=== PATIENT | male | born 1940 | race Caucasian/White ===

== ENCOUNTER → 2017-04-26 | Outpatient (CLI) | payer OTHER, BC ==
[~2017-04-26] MED LIST: ALPH300T PO; ARC10 PO; ASPI325T45 PO; CALC600T; COEN400C5; CRS/10 PO; FLUT50SP14 NAE; MULT-513 PO; POLY335025; PRED10TA PO; PRLSR20 PO
--- NOTE | 2017-04-26 16:54 | DIAGNOSTIC IMAGING REPORT ---
ULTRASOUND VENOUS DOPP LOWER EXT UNILAT CLINICAL HISTORY: Left leg pain and swelling. Left leg contusion. COMPARISON STUDY: 03/03/2016 FINDINGS: Real-time and color flow Doppler imaging were performed. Flow was seen within the femoral, popliteal and calf veins with no intraluminal thrombus demonstrated. The saphenous vein is patent. IMPRESSION: No evidence of left lower extremity DVT. Electronically signed by: Gareth Mcnamara M.D. 04/26/2017 4:53 PM Dictated Date/Time: 04/26/2017 4:52 PM
== END | disposition home or self-care (01) ==
LOC: C.ULTR 16:27
PROVIDERS: ATTEND Nurse Practitioner Family
DX: S80.12XA Contusion of left lower leg, initial encounter (principal); M79.605 Pain in left leg; W03.XXXA Other fall on same level due to collision with another person, initial encounter

== ENCOUNTER → 2017-05-06 | Outpatient (CLI) | payer OTHER, BC ==
--- NOTE | 2017-05-06 10:14 | DIAGNOSTIC IMAGING REPORT ---
CHEST 2 VIEWS ROUTINE CLINICAL HISTORY: J84.10 40 FIBROSIS COMPARISON STUDY: 07/22/2016 FINDINGS: The cardiac and mediastinal contours remain stable. Interstitial pulmonary fibrotic changes remain similar to the prior study. These have a lower lung zone predominance. There are no pleural effusions. There is no overt failure.[ IMPRESSION: Interstitial pulmonary fibrotic changes with a lower lung zone predominance, similar to the preceding study. Electronically signed by: Gareth Mcnamara M.D. 05/06/2017 10:13 AM Dictated Date/Time: 05/06/2017 10:12 AM
[2017-05-06 12:13] LABS: BASO % 0.4 %; BASO ABS # 0.03 K/uL (0-0.2); COMPLETE YES; EOS % 2.1 %; HEMATOCRIT 39.2 % (42-52); IG% 0.1 %; LYMPH % 24.6 %; LYMPH ABS # 1.64 K/uL (1.2-3.4); MEAN CELL VOLUME 95.8 fL (80-100); MEAN CORPUSCULAR HGB CONC 33.4 g/dl (32-36); MEAN PLATELET VOLUME 10.8 fL (7.4-10.4); MONO % 10.3 %; NEUT % 62.5 %; PLATELET COUNT 209 K/uL (130-400); RED BLOOD COUNT 4.09 M/uL (4.7-6.1); WHITE BLOOD COUNT 6.68 K/uL (4.8-10.8)
== END | disposition home or self-care (01) ==
LOC: C.RAD1850 10:00
PROVIDERS: ATTEND Internal Medicine Pulmonary Disease
DX: J84.10 Pulmonary fibrosis, unspecified (principal); R06.02 Shortness of breath

== ENCOUNTER → 2017-05-06 | Outpatient (CLI) | payer OTHER, BC ==
--- NOTE | 2017-05-06 08:25 | DIAGNOSTIC IMAGING REPORT ---
MRI OF THE BRAIN WITHOUT CONTRAST CLINICAL HISTORY: ALTERED MENTAL STATUS SPEECH DIFFICULTY. DIMINISHED MEMORY. COMPARISON STUDY: 03/30/2016 FINDINGS: Sagittal T1, axial diffusion, proton density and T2 weighted axial, coronal FLAIR, and axial T1-weighted images were acquired. No intra or extra-axial mass lesions are visualized Axial diffusion-weighted images reveal no evidence of acute or subacute infarction. There is no hydrocephalus. There is a cavum septa pellucida and cavum vergae. Proton density T2-weighted and FLAIR images reveal scattered foci of increased T2 signal within the white matter, likely on a small vessel basis. These remain unchanged the prior study. There are no abnormal flow voids. IMPRESSION: No acute intracranial findings. No change from the prior March 2016 study. Electronically signed by: Gareth Mcnamara M.D. 05/06/2017 8:24 AM Dictated Date/Time: 05/06/2017 8:22 AM
== END | disposition home or self-care (01) ==
LOC: C.MRI 07:25
PROVIDERS: ATTEND Nurse Practitioner Family
DX: R41.82 Altered mental status, unspecified (principal); J84.10 Pulmonary fibrosis, unspecified; R06.02 Shortness of breath

== ENCOUNTER 2017-10-31 21:38 | Inpatient (IN) | payer OTHER, BC ==
[~2017-10-31] VITALS: Ht 195.6 cm; Wt 91.4 kg
[2017-10-31] MEDS ORDERED: ONDANSETRON INJ 2 MG/ML 2 ML VIAL IV STA (21:52)
[2017-10-31] MEDS ORDERED: LORAZEPAM 2 MG/ML 1 ML VIAL IV STA (21:52)
--- NOTE | 2017-10-31 21:58 | EMERGENCY ROOM VISIT NOTE ---
History Report prepared by Chiquis: Gurpreet Mckeon Under the Supervision of: Dr. Andre Graham M.D. First contact with patient: 21:46 Chief Complaint: ABDOMINAL PAIN Stated Complaint: UPPER ABD. PAIN, BREATHING PROBLEMS History of Present Illness The patient is a 77 year old male who presents to the Emergency Room with complaints of constant abdominal pain beginning 20 minutes ago. The patient states that he had no indications of pain earlier in the day. He notes that this pain did not start after he ate something. He also complains of SOB. He denies any vomiting. Per , the patient has a history of pulmonary fibrosis. She reports that the patient has experienced similar symptoms that have occurred in the same area. She states that the patient does not wear oxygen at home. She notes that the patient had a typically normal day today but seems to be appearing more yellow/pale than usual. She reports that the patient has dementia but does not have any history of anxiety. She states that the patient had a few hernia surgeries a long time ago. HPI limited secondary to dementia. Source of History: patient, spouse/significant other History Limited By: dementia Onset: 20 minutes ago Position: abdomen Timing: constant Associated Symptoms: + SOB, No vomiting Note: Per , the patient is appearing more yellow/pale than usual. Review of Systems ROS limited secondary to dementia. Past Medical & Surgical Medical Problems: (1) Dementia (2) GERD (gastroesophageal reflux disease) (3) Hyperlipidemia Nec/Nos (4) Memory Loss (5) Pulmonary Fibrosis, Unspecified Surgical Problems: (1) History of hernia surgery (2) Knee Joint Replacement Status Family History No pertinent family history stated. Social History Smoking Status: Former Smoker Marital Status: Housing Status: lives with family Occupation Status: retired Current/Historical Medications Scheduled Alpha-Lipoic Acid (Thioctic Ac (Alpha Lipoic Acid), 300 MG PO DAILY Aspirin (Aspirin 81), 81 MG PO QAM Calcium Carbonate-Vitamin D (Calcium + D3 600-200 mg-Unit), 1 TAB PO DAILY Cholecalciferol (Vitamin D), 1,000 UNITS PO DAILY Coenzyme Q10 (Ubidecarenone) (Co Q 10), 100 MG PO QAM Cyanocobalamin (Vitamin B12 500MCG), 500 MCG PO DAILY Donepezil HCl (Donepezil HCl), 10 MG PO HS Memantine (Namenda), 5 MG PO BID Multivitamins/Minerals (Mvi With Minerals), 1 TAB PO DAILY Probiotic Product (Probiotic), 1 CAP PO DAILY Ranitidine (Zantac), Unknown Dose PO DAILY Thiamine Hcl (Vitamin B1), 250 MG PO QAM Scheduled PRN Betamethasone Dip (Betamethasone Dipropionat), 1 APPLN TOP BID PRN for Carboxymethylcellulose-Glyceri (Refresh Optive 1-0.9 %), 1 APPLN OPB DAILY PRN for Ipratropium [place] (Nasal) (Ipratropium [place]), 2 SPRAYS HEIDI TID PRN for Polyethylene (Miralax), 17 GM PO DAILY PRN for Constipation Allergies Coded Allergies: Horse Serum Proteins (Verified Allergy, Unknown, "CAN'T REMEMBER", ) Physical Exam Vital Signs Date Time Temp Pulse Resp B/P (MAP) Pulse Ox O2 Delivery O2 Flow Rate FiO2 10/31/17 22:32 61 22 114/56 96 Nasal Cannula 3.0 10/31/17 22:15 96 Nasal Cannula 3.0 10/31/17 22:07 62 10/31/17 21:41 59 18 145/81 98 Room Air Physical Exam GENERAL: Somewhat anxious appearing and hyperventilating. HEENT: No acute trauma, normocephalic atraumatic, mucous membranes moist, no nasal congestion, no scleral icterus. NECK: No stridor, no adenopathy, no meningismus, trachea is midline. LUNGS: Clear to auscultation bilaterally, no wheeze, no rhonchi, breath sounds equal. Increased respiratory rate. HEART: Unable to hear cardiac tones because of the increased respiratory rate. ABDOMEN: Soft, bowel sounds positive, no hernias, no peritonitis. Tender in epigastrium. EXTREMITIES: No cyanosis or edema, full range of motion of all the joints without pain or difficulty, no signs for acute trauma. NEUROLOGIC: Oriented x 3, no acute motor or sensory deficits, no focal weakness. SKIN: No rash, no jaundice, no diaphoresis. Pale. Medical Decision & Procedures ER Provider Diagnostic Interpretation: Radiology results as stated below per my review and radiologist interpretation: CHEST ONE VIEW PORTABLE FINDINGS: There is no pneumothorax or pleural effusion. Borderline cardiomegaly is noted. Lower lobe predominant reticulonodular interstitial thickening is noted. This has slightly progressed. No superimposed consolidation is evident. IMPRESSION: Increase in interstitial thickening since prior exam. This could reflect progression of pulmonary fibrosis or mild pulmonary edema or an infectious process superimposed upon pulmonary fibrosis. Electronically signed by: Shashank Phelps M.D. 10/31/2017 10:[address] ABDOMEN & PELVIS With Contrast: Distended gallbladder with possible cholelithiasis. Ultrasound could confirm. Fecal retention. No SBO. Appendix is not clearly identified. Fat-containing left inguinal hernia. Pulmonary fibrosis. Radiologist: Tian Perez M.D. Laboratory Results 10/31/17 22:01 Red Blood Count 4.01, Mean Corpuscular Volume 96.0, Mean Corpuscular Hemoglobin 33.2, Mean Corpuscular Hemoglobin Concent 34.5, Mean Platelet Volume 10.6, Neutrophils (%) (Auto) 42.3, Lymphocytes (%) (Auto) 47.5, Monocytes (%) (Auto) 7.3, Eosinophils (%) (Auto) 2.3, Basophils (%) (Auto) 0.5, Neutrophils # (Auto) 3.95, Lymphocytes # (Auto) 4.43, Monocytes # (Auto) 0.68, Eosinophils # (Auto) 0.21, Basophils # (Auto) 0.05 10/31/17 22:01 Test 10/31/17 22:01 White Blood Count 9.33 K/uL (4.8-10.8) Red Blood Count 4.01 M/uL (4.7-6.1) Hemoglobin 13.3 g/dL (14.0-18.0) Hematocrit 38.5 % (42-52) Mean Corpuscular Volume 96.0 fL (80-100) Mean Corpuscular Hemoglobin 33.2 pg (25-34) Mean Corpuscular Hemoglobin Concent 34.5 g/dl (32-36) Platelet Count 160 K/uL (130-400) Mean Platelet Volume 10.6 fL (7.4-10.4) Neutrophils (%) (Auto) 42.3 % Lymphocytes (%) (Auto) 47.5 % Monocytes (%) (Auto) 7.3 % Eosinophils (%) (Auto) 2.3 % Basophils (%) (Auto) 0.5 % Neutrophils # (Auto) 3.95 K/uL (1.4-6.5) Lymphocytes # (Auto) 4.43 K/uL (1.2-3.4) Monocytes # (Auto) 0.68 K/uL (0.11-0.59) Eosinophils # (Auto) 0.21 K/uL (0-0.5) Basophils # (Auto) 0.05 K/uL (0-0.2) RDW Standard Deviation 48.5 fL (36.4-46.3) RDW Coefficient of Variation 13.8 % (11.5-14.5) Immature Granulocyte % (Auto) 0.1 % Immature Granulocyte # (Auto) 0.01 K/uL (0.00-0.02) Prothrombin Time 10.5 SECONDS (9.0-12.0) Prothromb Time International Ratio 1.0 (0.9-1.1) Activated Partial Thromboplast Time 26.1 SECONDS (21.0-31.0) Partial Thromboplastin Ratio 1.0 Anion Gap 9.0 mmol/L (3-11) Est Creatinine Clear Calc Drug Dose 60.0 ml/min Estimated GFR () 60.3 Estimated GFR (Non- 52.0 BUN/Creatinine Ratio 12.9 (10-20) Lactic Acid Level 2.4 mmol/L (0.4-2.0) Calcium Level 9.4 mg/dl (8.5-10.1) Total Bilirubin 0.7 mg/dl (0.2-1) Aspartate Amino Transf (AST/SGOT) 38 U/L (15-37) Alanine Aminotransferase (ALT/SGPT) 27 U/L (12-78) Alkaline Phosphatase 53 U/L (45-117) Troponin I < 0.015 ng/ml (0-0.045) Pro-B-Type Natriuretic Peptide 2479 pg/ml (0-1800) Total Protein 7.2 gm/dl (6.4-8.2) Albumin 4.0 gm/dl (3.4-5.0) Globulin 3.2 gm/dl (2.5-4.0) Albumin/Globulin Ratio 1.3 (0.9-2) Lipase 9865 U/L (73-393) Laboratory results reviewed by me. Medications Administered Medications (Trade) Dose Ordered Sig/Byron Route Start Time Stop Time Status Last Admin Dose Admin Ondansetron HCl (Zofran Inj) 4 mg NOW STAT IV 10/31/17 21:52 10/31/17 21:54 DC 10/31/17 22:20 4 MG Morphine Sulfate (MoRPHine SULFATE INJ) 2 mg Q30M PRN IV 10/31/17 22:00 11/14/17 21:59 10/31/17 22:20 4 MG Lorazepam (Ativan Inj) 0.5 mg NOW STAT IV 10/31/17 21:52 10/31/17 21:54 DC 10/31/17 22:20 0.5 MG Sodium Chloride 500 ml @ 999 mls/hr Q31M STAT IV 10/31/17 22:46 10/31/17 23:16 DC 10/31/17 23:11 999 MLS/HR ECG Indication: abdominal pain Rate (beats per minute): 60 Rhythm: normal sinus Findings: PVC, no acute ischemic change, other (LVH present, potential old inferior infarct) ED Course 2146: The patient was evaluated in room B3. A complete history and physical exam was performed. 2152: Lorazepam 0.5mg IV, Zofran Inj 4mg IV, IV Morphine. 2222: I reevaluated and updated the patient. He just vomited and feels better. 2246: Sodium Chloride 500 ml @ 999 mls/hr IV 2309: Cefepime HCl 2000mg/Dextrose 112.5 ml@ 200mls/hr IV 2313: I reevaluated the patient. He was sleeping so I spoke to the family. 2341: The patient's gallbladder US is pending. Dr. Sutton - [place], [facility] [place] made aware of the patient. Medical Decision Differential diagnoses include: anxiety, pneumonia, cardiac ischemia, dysrhythmia, biliary colic, pancreatitis, AAA, liver failure, infection, UTI, and bowel obstruction. There is no leukocytosis or concerning anemia. No significant electrolyte abnormality, kidney failure or hepatitis. The patient does have a high lipase consistent with pancreatitis. Chest film shows pulmonary congestion/pulmonary fibrosis-the patient has a history of pulmonary fibrosis. There was no pneumonia or free air. EKG shows a sinus rhythm with PVC's and chronic findings , there is no acute ischemia. Cardiac enzyme testing times one is not consistent with acute cardiac injury. Lactic acid level is slightly elevated, likely consistent with dehydration, possibly infection. There was no coagulopathy. Abdominal and pelvis CT shows a dilated gallbladder with possible gallstones, no bowel obstruction, no free air. Gallbladder ultrasound is pending. The patient presents hyperventilating complaining of epigastric abdominal pain. He was a difficult historian with his history of dementia. Most of the history was obtained from his . He did seem tender in the epigastrium. He appeared slightly pale on exam. The patient received IV morphine, IV Zofran and IV Ativan. He received IV saline for hydration, he was given IV cefepime as antibiotic coverage. He is resting comfortably. The patient appears to have pancreatitis, this of course explains his discomfort and pain. He will require a hospital stay. I spoke to the patient, his and the case aide. The on-call hospitalist was consulted. Medication Reconcilliation Current Medication List: was personally reviewed by me Blood Pressure Screening Patient's blood pressure: Elevated blood pressure Blood pressure disposition: Elevated BP felt to be situational Impression Primary Impression: Pancreatitis Additional Impressions: Epigastric abdominal pain Vomiting Scribe Attestation The scribe's documentation has been prepared under my direction and personally reviewed by me in its entirety. I confirm that the note above accurately reflects all work, treatment, procedures, and medical decision making performed by me. Departure Information Dispostion Being Evaluated By Hospitalist Referrals Jh Casey M.D. (PCP) Patient Instructions My [facility] Problem Qualifiers
[2017-10-31] MEDS ORDERED: MoRPHine SULFATE 4 MG/ML 1 ML CARP\\VIAL IV PRN (22:00)
[2017-10-31] MEDS ORDERED: OPTIRAY 320 IV PRN (22:15)
[2017-10-31 22:18] LABS: BASO % 0.5 %; BASO ABS # 0.05 K/uL (0-0.2); EOS % 2.3 %; EOS ABS # 0.21 K/uL (0-0.5); HEMATOCRIT 38.5 % (42-52); HEMOGLOBIN 13.3 g/dL (14.0-18.0); IG# 0.01 K/uL (0.00-0.02); LYMPH % 47.5 %; LYMPH ABS # 4.43 K/uL (1.2-3.4); MEAN CORPUSCULAR HEMOGLOBIN 33.2 pg (25-34); MEAN CORPUSCULAR HGB CONC 34.5 g/dl (32-36); MEAN PLATELET VOLUME 10.6 fL (7.4-10.4); MONO % 7.3 %; MONO ABS # 0.68 K/uL (0.11-0.59); NEUT % 42.3 %; NEUT ABS # 3.95 K/uL (1.4-6.5); PLATELET COUNT 160 K/uL (130-400); RED CELL DISTRIBUTION WIDTH CV 13.8 % (11.5-14.5); RED CELL DISTRIBUTION WIDTH SD 48.5 fL (36.4-46.3); WHITE BLOOD COUNT 9.33 K/uL (4.8-10.8)
[2017-10-31 22:26] LABS: PTT PATIENT 26.1 SECONDS (21.0-31.0)
--- NOTE | 2017-10-31 22:32 | DIAGNOSTIC IMAGING REPORT ---
CHEST ONE VIEW PORTABLE CLINICAL HISTORY: Abdominal pain. COMPARISON STUDY: Chest radiograph May 06, 2017. FINDINGS: There is no pneumothorax or pleural effusion. Borderline cardiomegaly is noted. Lower lobe predominant reticulonodular interstitial thickening is noted. This has slightly progressed. No superimposed consolidation is evident. IMPRESSION: Increase in interstitial thickening since prior exam. This could reflect progression of pulmonary fibrosis or mild pulmonary edema or an infectious process superimposed upon pulmonary fibrosis. Electronically signed by: Shashank Phelps M.D. 10/31/2017 10:31 PM Dictated Date/Time: 10/31/2017 10:27 PM
[2017-10-31 22:42] LABS: ALT/SGPT 27 U/L (12-78); AST/SGOT 38 U/L (15-37); BLOOD UREA NITROGEN 17 mg/dl (7-18); CALCIUM 9.4 mg/dl (8.5-10.1); CARBON DIOXIDE 27 mmol/L (21-32); CREATININE 1.32 mg/dl (0.60-1.40); GLUCOSE 127 mg/dl (70-99); POTASSIUM 3.6 mmol/L (3.5-5.1); SODIUM 139 mmol/L (136-145)
[2017-10-31] MEDS ORDERED: SODIUM CHLORIDE 0.9% 500ML 500 ML IV STA (22:46)
[2017-10-31 22:47] LABS: ALKALINE PHOSPHATASE 53 U/L (45-117); LIPASE 9865 U/L (73-393); TOTAL PROTEIN 7.2 gm/dl (6.4-8.2)
[2017-10-31] MEDS ORDERED: CARB1GEL14 OPB (22:49)
[2017-10-31] MEDS ORDERED: CALC-388 PO (22:49)
[2017-10-31] MEDS ORDERED: MRLP17X PO (22:49)
[2017-10-31] MEDS ORDERED: CHOL100010 PO (22:49)
[2017-10-31] MEDS ORDERED: DONE10TA12 PO (22:49)
[2017-10-31] MEDS ORDERED: THIA250T7 PO (22:49)
[2017-10-31] MEDS ORDERED: MISCCAP80 PO (22:49)
[2017-10-31] MEDS ORDERED: ASPI-435 PO (22:49)
[2017-10-31] MEDS ORDERED: CYAN500T13 PO (22:49)
[2017-10-31] MEDS ORDERED: IPRA0.03 NAE (22:49)
[2017-10-31] MEDS ORDERED: COEN1CAP17 PO (22:49)
[2017-10-31] MEDS ORDERED: NMN5 PO (22:49)
[2017-10-31] MEDS ORDERED: ZNTT/150 PO (22:49)
[2017-10-31] MEDS ORDERED: DPRSCR15 TOP (22:49)
[2017-10-31] MEDS ORDERED: CEFEPIME IV 2,000 MG in DEXTROSE 5% 100ML 100 ML IV STA (23:09)
[2017-11-01] MEDS ORDERED: BETAMETHASONE DIP AUG (DIPROLENE) 0.05% CR 15 GM TUBE EXT PRN (01:15)
[2017-11-01] MEDS ORDERED: ACETAMINOPHEN 325 MG TAB PO PRN (01:15)
[2017-11-01] MEDS ORDERED: ALUMINUM/MAGNESIUM/SIMETH (MAALOX MAX) 30 ML UDC PO PRN (01:15)
[2017-11-01] MEDS ORDERED: MAGNESIUM HYDROXIDE SUSP 30 ML UDC PO PRN (01:15)
[2017-11-01] MEDS ORDERED: ONDANSETRON INJ 2 MG/ML 2 ML VIAL IV PRN ×2 (01:15→01:30)
--- NOTE | 2017-11-01 01:42 | History and Physical ---
History & Physical Date & Time of Service: Nov 01, 2017 at 01:18 Chief Complaint: Upper Abd. Pain, Breathing Problems Primary Care Physician: Jh Casey M.D. History of Present Illness Source: spouse The patient is a 77 year old male who presented to the ED with persistent abdominal pain. The patient was asleep during my encounter and His provided much of the history. She states that he has had epigastric abdominal pain for several weeks intermittently. However today, the pain was constant. She notes that he does have a history of dementia but has never complained of pain as severe. There was no relationship to food. He was also complaining of shortness of breath. He does have a history of pulmonary fibrosis but does not use any oxygen or inhalers at home. She also reports that he had an episode of emesis in the ER. Denies diarrhea. No history of smoking or alcohol No history of pancreatitis. Past Medical/Surgical History Medical Problems: (1) GERD (gastroesophageal reflux disease) Status: Chronic (2) Hyperlipidemia Nec/Nos Status: Chronic (3) Memory Loss Status: Chronic (4) Pulmonary Fibrosis, Unspecified Status: Chronic Surgical Problems: (1) Knee Joint Replacement Status Status: Resolved Social History Smoking Status: Former Smoker Marital Status: Occupational Status: retired Immunizations History of Influenza Vaccine: No History of Tetanus Vaccine?: No History of Pneumococcal: Yes Pneumococcal Date: Nov 15, 2008 History of Hepatitis B Vaccine: No Multi-Drug Resistant Organisms History of MDRO: No Allergies Coded Allergies: Horse Serum Proteins (Verified Allergy, Unknown, "CAN'T REMEMBER", ) Home Medications Scheduled Alpha-Lipoic Acid (Thioctic Ac (Alpha Lipoic Acid), 300 MG PO DAILY Aspirin (Aspirin 81), 81 MG PO QAM Calcium Carbonate-Vitamin D (Calcium + D3 600-200 mg-Unit), 1 TAB PO DAILY Cholecalciferol (Vitamin D), 1,000 UNITS PO DAILY Coenzyme Q10 (Ubidecarenone) (Co Q 10), 100 MG PO QAM Cyanocobalamin (Vitamin B12 500MCG), 500 MCG PO DAILY Donepezil HCl (Donepezil HCl), 10 MG PO HS Memantine (Namenda), 5 MG PO BID Multivitamins/Minerals (Mvi With Minerals), 1 TAB PO DAILY Probiotic Product (Probiotic), 1 CAP PO DAILY Ranitidine (Zantac), Unknown Dose PO DAILY Thiamine Hcl (Vitamin B1), 250 MG PO QAM Scheduled PRN Betamethasone Dip (Betamethasone Dipropionat), 1 APPLN TOP BID PRN for Carboxymethylcellulose-Glyceri (Refresh Optive 1-0.9 %), 1 APPLN OPB DAILY PRN for Ipratropium [place] (Nasal) (Ipratropium [place]), 2 SPRAYS HEIDI TID PRN for Polyethylene (Miralax), 17 GM PO DAILY PRN for Constipation Review of Systems ROS unobtainable Physical Exam Vital Signs Date Time Temp Pulse Resp B/P (MAP) Pulse Ox O2 Delivery O2 Flow Rate FiO2 11/01/17 00:41 85 18 95/44 95 Room Air 11/01/17 00:03 97/54 10/31/17 23:15 69 19 100 Nasal Cannula 3.0 10/31/17 23:10 127/68 10/31/17 22:45 67 16 100 10/31/17 22:32 61 22 114/56 96 Nasal Cannula 3.0 10/31/17 22:15 96 Nasal Cannula 3.0 10/31/17 22:07 62 10/31/17 21:41 59 18 145/81 98 Room Air General Appearance: no apparent distress, + pertinent finding (patient asleep) Respiratory/Chest: lungs clear, normal breath sounds, no respiratory distress, no accessory muscle use Cardiovascular: regular rate, rhythm, + pertinent finding (trace) Abdomen/GI: normal bowel sounds, non tender, soft Diagnostics Laboratory Results Results Past 24 Hours Test 10/31/17 22:01 Range/Units White Blood Count 9.33 4.8-10.8 K/uL Red Blood Count 4.01 4.7-6.1 M/uL Hemoglobin 13.3 14.0-18.0 g/dL Hematocrit 38.5 42-52 % Mean Corpuscular Volume 96.0 80-100 fL Mean Corpuscular Hemoglobin 33.2 25-34 pg Mean Corpuscular Hemoglobin Concent 34.5 32-36 g/dl Platelet Count 160 130-400 K/uL Mean Platelet Volume 10.6 7.4-10.4 fL Neutrophils (%) (Auto) 42.3 % Lymphocytes (%) (Auto) 47.5 % Monocytes (%) (Auto) 7.3 % Eosinophils (%) (Auto) 2.3 % Basophils (%) (Auto) 0.5 % Neutrophils # (Auto) 3.95 1.4-6.5 K/uL Lymphocytes # (Auto) 4.43 1.2-3.4 K/uL Monocytes # (Auto) 0.68 0.11-0.59 K/uL Eosinophils # (Auto) 0.21 0-0.5 K/uL Basophils # (Auto) 0.05 0-0.2 K/uL RDW Standard Deviation 48.5 36.4-46.3 fL RDW Coefficient of Variation 13.8 11.5-14.5 % Immature Granulocyte % (Auto) 0.1 % Immature Granulocyte # (Auto) 0.01 0.00-0.02 K/uL Prothrombin Time 10.5 9.0-12.0 SECONDS Prothromb Time International Ratio 1.0 0.9-1.1 Activated Partial Thromboplast Time 26.1 21.0-31.0 SECONDS Partial Thromboplastin Ratio 1.0 Sodium Level 139 136-145 mmol/L Potassium Level 3.6 3.5-5.1 mmol/L Chloride Level 103 98-107 mmol/L Carbon Dioxide Level 27 21-32 mmol/L Anion Gap 9.0 3-11 mmol/L Blood Urea Nitrogen 17 7-18 mg/dl Creatinine 1.32 0.60-1.40 mg/dl Est Creatinine Clear Calc Drug Dose 60.0 ml/min Estimated GFR () 60.3 Estimated GFR (Non- 52.0 BUN/Creatinine Ratio 12.9 10-20 Random Glucose 127 70-99 mg/dl Lactic Acid Level 2.4 0.4-2.0 mmol/L Calcium Level 9.4 8.5-10.1 mg/dl Total Bilirubin 0.7 0.2-1 mg/dl Aspartate Amino Transf (AST/SGOT) 38 15-37 U/L Alanine Aminotransferase (ALT/SGPT) 27 12-78 U/L Alkaline Phosphatase 53 45-117 U/L Troponin I < 0.015 0-0.045 ng/ml Pro-B-Type Natriuretic Peptide 2479 0-1800 pg/ml Total Protein 7.2 6.4-8.2 gm/dl Albumin 4.0 3.4-5.0 gm/dl Globulin 3.2 2.5-4.0 gm/dl Albumin/Globulin Ratio 1.3 0.9-2 Lipase 9865 73-393 U/L Impression Assessment and Plan This is a 77 y/o M who presents with persistent epigastric abdominal pain. Pancreatitis: Lipase - 9000 No evidence of necrosis on CT GB usg without evidence of cholecystitis IV nss NPO Cefepime given in the ER- hold on further Abx GI consult Zofran, Morphine Dementia Continue donepezil, memantine Dvt proph Lovenox Pulmonary fibrosis- chronic ?mild worsening on xray vs. pulm edema. Gerd Protonix Code: DNR Resident Physician Supervision Note: I was present with Dr. Masters during the history and exam. I discussed the case with the resident and agree with the findings and plan as documented in the note. Any exceptions or clarifications are listed here: 77 y/o M Hx pulmonary fibrosis, dementia - presents with N/V, abdominal pain - elevated lipase noted in ER - admitted with presumed pancreatitis OE AAO x 2 S1,2 R CTAB mild, diffuse tenderness No CCE No new deficits P: Pt placed on IVF - pain control and antiemetics provided - NPO excepting water/ meds May need treatment for fibrosis going forward if he continues to c/o SOB and should follow with pulm as outpt - no 02 demands at present - can provide inhalers if needed Documented By: Naresh Sutton Level of Care Med/Surg VTE Prophylaxis VTE Risk Assessment Done? Y/N: Yes Risk Level: Moderate
[2017-11-01 02:00] VITALS: BP 136/69; PULSE 75; TEMP 36.5; Ht 195.6 cm; Wt 91.4 kg
[2017-11-01] MEDS ORDERED: POLYETHYLENE (MIRALAX) 17 GM PACK PO PRN (02:00)
[2017-11-01] MEDS ORDERED: ARTIFICIAL TEARS OP OINT 3.5 GM TUBE OPB PRN (02:15)
[2017-11-01] MEDS: SODIUM CHLORIDE 0.9% 1000ML 1,000 ML IV SCH ×3 (02:17→20:09)
[2017-11-01] MEDS: MoRPHine SULFATE 2 MG/ML CARP IV PRN ×2 (02:41→16:09)
[2017-11-01] MEDS ORDERED: ALBUT/IPRATROP 3MG/0.5MG NEB 3 ML VIAL INH PRN (06:15)
--- NOTE | 2017-11-01 06:33 | DIAGNOSTIC IMAGING REPORT ---
CT ABD/PELVIS IV CONTRAST ONLY CLINICAL HISTORY: Generalized abdominal pain COMPARISON STUDY: None. TECHNIQUE: Following the IV administration of 115 mL of Optiray-320, CT scan of the abdomen and pelvis was performed from the lung bases to the proximal femurs. Images are reviewed in the axial, sagittal, and coronal planes. IV contrast was administered without complication. A dose lowering technique was utilized adhering to the principles of ALARA. CT DOSE: 412.43 mGy.cm FINDINGS: Lower chest: There is evidence for underlying interstitial lung disease with subpleural reticulation. The heart is enlarged. Liver: The contrast-enhanced liver is normal in size, contour, and attenuation. There is no intrahepatic biliary ductal dilatation. The hepatic veins and portal veins are patent. Gallbladder: The gallbladder is distended. There is equivocal dependent sludge. Spleen: Normal in size and attenuation. Pancreas: Unremarkable. Adrenal glands: Unremarkable. Kidneys: There is symmetric renal cortical enhancement. The kidneys are normal in size without hydronephrosis. Bowel: There is evidence for fecal retention. There are no transition zones indicate bowel obstruction. There is no evidence of acute diverticulitis. The appendix is difficult to visualize with certainty. There are no findings to indicate acute appendicitis. Peritoneum: There is no intraperitoneal free air or abdominal ascites. There is a fat-containing left inguinal hernia. Vasculature: The abdominal aorta is normal in course and caliber. Adenopathy: None. Pelvic viscera: The bladder, and pelvic viscera are unremarkable. Skeletal structures: There are postsurgical changes present within the lumbar spine. IMPRESSION: 1. No evidence of bowel obstruction. No evidence of free air 2. No evidence of acute diverticulitis. No evidence of acute appendicitis. 3. Mildly distended gallbladder with equivocal dependent sludge 4. Fat-containing left inguinal hernia 5. Fecal retention 6. Images of the lung bases suggest underlying interstitial lung disease Electronically signed by: Gareth Mcnamara M.D. 11/01/2017 6:32 AM Dictated Date/Time: 11/01/2017 6:28 AM
[2017-11-01 06:39] LABS: BASO % 0.2 %; BASO ABS # 0.02 K/uL (0-0.2); EOS % 0.2 %; EOS ABS # 0.03 K/uL (0-0.5); HEMATOCRIT 37.4 % (42-52); HEMOGLOBIN 12.7 g/dL (14.0-18.0); IG# 0.03 K/uL (0.00-0.02); LYMPH % 6.7 %; LYMPH ABS # 0.84 K/uL (1.2-3.4); MEAN CELL VOLUME 97.4 fL (80-100); MEAN CORPUSCULAR HEMOGLOBIN 33.1 pg (25-34); MONO % 4.8 %; NEUT % 87.9 %; NEUT ABS # 11.02 K/uL (1.4-6.5); PLATELET COUNT 134 K/uL (130-400); RED CELL DISTRIBUTION WIDTH CV 13.9 % (11.5-14.5); RED CELL DISTRIBUTION WIDTH SD 49.7 fL (36.4-46.3); WHITE BLOOD COUNT 12.54 K/uL (4.8-10.8)
[2017-11-01] MEDS ORDERED: INFLUENZA VIRUS QUAD VACCINE 0.5 ML SYR IM. ONE (07:00)
[2017-11-01] MEDS ORDERED: INFLUENZA ADMINISTRATION CHARGE ONE (07:00)
--- NOTE | 2017-11-01 07:08 | DIAGNOSTIC IMAGING REPORT ---
GALLBLADDER-ABD LIMITED CLINICAL HISTORY: 77 years-old Male presenting with vomiting, pancreatitis. TECHNIQUE: Real-time grayscale and limited color Doppler ultrasound imaging of the abdomen limited to the right upper quadrant was performed. COMPARISON: CT performed earlier the same day. FINDINGS: Pancreas: Largely obscured due to overlying bowel gas. Liver: Normal echogenicity and echotexture. The liver measures 15 cm in maximal sagittal dimension. No sonographic evidence of hepatic mass. Main portal vein patent with normal directional flow. Biliary: No intrahepatic biliary ductal dilatation. Common bile duct measures up to 5 mm in diameter. Gallbladder: The gallbladder is distended measuring over 10 cm in length. Gallbladder sludge noted. No gallstones, gallbladder wall thickening, pericholecystic fluid or inflammatory change. Unable to assess sonographic Montgomery's sign. Right kidney: Not visualized due to bowel gas. Ascites: None. IMPRESSION: 1. Gallbladder sludge and mild gallbladder distention. Physiologic distention not excluded. No other findings to suggest cholecystitis. No biliary ductal dilatation. If there is continuing clinical concern, nuclear medicine HIDA scan could be obtained. Electronically signed by: Tru Valentino M.D. 11/01/2017 7:07 AM Dictated Date/Time: 11/01/2017 7:05 AM
[2017-11-01 07:13] VITALS: BP 129/72; PULSE 91; TEMP 36.4; O2SAT 97
[2017-11-01] MEDS: CYANOCOBALAMIN 500 MCG TAB (VIT B-12) PO SCH (08:41)
[2017-11-01] MEDS: ASPIRIN 81 MG ECTAB PO SCH (08:41)
[2017-11-01] MEDS: CHOLECALCIFEROL 1000 INTER.UNIT TAB PO SCH (08:41)
[2017-11-01] MEDS: CALCIUM 600MG + VIT D 400 IU TAB PO SCH (08:41)
[2017-11-01] MEDS: THIAMINE HCL 100 MG TAB PO SCH (08:41)
[2017-11-01] MEDS: ENOXAPARIN 40 MG/0.4 ML SYR SQ SCH (08:43)
[2017-11-01] MEDS ORDERED: MEMANTINE 5 MG TAB PO SCH (09:00)
[2017-11-01] MEDS ORDERED: ALPHA LIPOIC ACID PO SCH (09:00)
[2017-11-01] MEDS ORDERED: NON-FORMULARY MEDICATION (Probiotic Product (Probiotic) 1 CAP) PO SCH (09:00)
--- NOTE | 2017-11-01 09:11 | Family Medicine Progress Note ---
Progress Note Date of Service Nov 01, 2017. Subjective Pt evaluation today including: conversation w/ patient, physical exam, chart review, conversation w/ nursing education consultant, review of inpatient medication list Pain: mild-->moderate Patient says that his pain has improved since yesterday He has trouble answering open ended questions and has word finding difficulty He denies any nausea or vomiting Constitutional: + fatigue, No fever, No chills, No sweats Respiratory: + cough, No sputum, No shortness of breath Cardiovascular: No chest pain, No edema, No palpitations Abdomen: No pain, No nausea, No vomiting, No diarrhea, No constipation Male : No dysuria Skin: No rash, No itch Medications Current Inpatient Medications Medications (Trade) Dose Ordered Sig/[place] Route Start Time Stop Time Status Last Admin Dose Admin Ioversol (Optiray 320) 100 ml UD PRN IV 10/31/17 22:15 11/04/17 22:14 Enoxaparin Sodium (Lovenox Inj) 40 mg Q24H SQ 11/01/17 09:00 12/01/17 08:59 11/01/17 08:43 40 MG Acetaminophen (Tylenol Tab) 650 mg Q4H PRN PO 11/01/17 01:15 12/01/17 01:14 Al Hydrox/Mg Hydrox/Simethicone (Maalox Max Susp) 15 ml Q4H PRN PO 11/01/17 01:15 12/01/17 01:14 Magnesium Hydroxide (Milk Of Magnesia Susp) 30 ml Q6H PRN PO 11/01/17 01:15 12/01/17 01:14 Polyethylene (Miralax Powder Packet) 17 gm DAILY PRN PO 11/01/17 02:00 12/01/17 01:59 Ondansetron HCl (Zofran Inj) 4 mg Q6H PRN IV 11/01/17 01:15 12/01/17 01:14 Aspirin (Ecotrin Tab) 81 mg QAM PO 11/01/17 09:00 12/01/17 08:59 Cholecalciferol (Vitamin D Tab) 1,000 inter.unit DAILY PO 11/01/17 09:00 12/01/17 08:59 Cyanocobalamin (Vitamin B-12 Tab) 500 mcg DAILY PO 11/01/17 09:00 1/18/18 08:59 Donepezil HCl (Aricept Tab) 10 mg HS PO 11/01/17 21:00 12/01/17 20:59 Memantine (Namenda Tab) 5 mg BID PO 11/01/17 09:00 12/01/17 08:59 Betamethasone Dipropion Augmented (Diprolene 0.05% Cr) 1 appln BID PRN EXT 11/01/17 01:15 12/01/17 01:14 Calcium/Vitamin D (Caltrate Plus Tab) 1 tab DAILY PO 11/01/17 09:00 12/01/17 08:59 Artificial Tears (Lacri-Lube Oph Oint) 1 appln DAILY PRN OPB 11/01/17 02:15 12/01/17 02:14 Miscellaneous Information (Order Awaiting Action) 1 ea QS N/A 11/01/17 08:00 12/01/17 07:59 Thiamine HCl (Vitamin B-1 Tab) 250 mg DAILY PO 11/01/17 09:00 12/01/17 08:59 Sodium Chloride 1,000 ml @ 125 mls/hr Q8H IV 11/01/17 02:15 12/01/17 02:14 11/01/17 02:17 80 MLS/HR Pantoprazole Sodium 40 mg/ Syringe 10 ml @ 5 mls/min DAILY@11 IV 11/01/17 11:00 12/01/17 10:59 Morphine Sulfate (MoRPHine SULFATE INJ) 2 mg Q4H PRN IV 11/01/17 02:30 11/15/17 02:29 11/01/17 02:41 2 MG Albuterol/ Ipratropium (Duoneb) 3 ml Q4R PRN INH 11/01/17 06:15 12/01/17 06:14 Objective Vital Signs Date Time Temp Pulse Resp B/P (MAP) Pulse Ox O2 Delivery O2 Flow Rate FiO2 11/01/17 07:15 Room Air 11/01/17 07:13 36.4 91 16 129/72 (91) 97 Room Air 11/01/17 02:00 36.5 75 17 136/69 Room Air 11/01/17 01:31 70 18 96/43 95 11/01/17 00:41 85 18 95/44 95 Room Air 11/01/17 00:03 97/54 10/31/17 23:15 69 19 100 Nasal Cannula 3.0 10/31/17 23:10 127/68 10/31/17 22:45 67 16 100 10/31/17 22:32 61 22 114/56 96 Nasal Cannula 3.0 10/31/17 22:15 96 Nasal Cannula 3.0 10/31/17 22:07 62 10/31/17 21:41 59 18 145/81 98 Room Air Physical Exam General Appearance: WD/WN, no apparent distress, + pertinent finding ENT: pharynx normal Neck: supple, no JVD, no carotid bruits Respiratory/Chest: lungs clear, no respiratory distress, no accessory muscle use Cardiovascular: regular rate, rhythm, no edema, no murmur Abdomen: normal bowel sounds, soft, + tenderness (diffuse tenderness most prominent in upper abdomen, no rebound or guarding) Extremities: non-tender, no pedal edema, no calf tenderness, normal capillary refill Neurologic/Psychiatric: alert, normal mood/affect, + disoriented, + pertinent finding (patient with dementia at baseline and has trouble answering questions, stutters very often) Laboratory Results Results Past 24 Hours Test 10/31/17 22:01 11/01/17 01:54 11/01/17 05:42 Range/Units White Blood Count 9.33 12.54 4.8-10.8 K/uL Red Blood Count 4.01 3.84 4.7-6.1 M/uL Hemoglobin 13.3 12.7 14.0-18.0 g/dL Hematocrit 38.5 37.4 42-52 % Mean Corpuscular Volume 96.0 97.4 80-100 fL Mean Corpuscular Hemoglobin 33.2 33.1 25-34 pg Mean Corpuscular Hemoglobin Concent 34.5 34.0 32-36 g/dl Platelet Count 160 134 130-400 K/uL Mean Platelet Volume 10.6 11.0 7.4-10.4 fL Neutrophils (%) (Auto) 42.3 87.9 % Lymphocytes (%) (Auto) 47.5 6.7 % Monocytes (%) (Auto) 7.3 4.8 % Eosinophils (%) (Auto) 2.3 0.2 % Basophils (%) (Auto) 0.5 0.2 % Neutrophils # (Auto) 3.95 11.02 1.4-6.5 K/uL Lymphocytes # (Auto) 4.43 0.84 1.2-3.4 K/uL Monocytes # (Auto) 0.68 0.60 0.11-0.59 K/uL Eosinophils # (Auto) 0.21 0.03 0-0.5 K/uL Basophils # (Auto) 0.05 0.02 0-0.2 K/uL RDW Standard Deviation 48.5 49.7 36.4-46.3 fL RDW Coefficient of Variation 13.8 13.9 11.5-14.5 % Immature Granulocyte % (Auto) 0.1 0.2 % Immature Granulocyte # (Auto) 0.01 0.03 0.00-0.02 K/uL Prothrombin Time 10.5 9.0-12.0 SECONDS Prothromb Time International Ratio 1.0 0.9-1.1 Activated Partial Thromboplast Time 26.1 21.0-31.0 SECONDS Partial Thromboplastin Ratio 1.0 Sodium Level 139 136-145 mmol/L Potassium Level 3.6 3.5-5.1 mmol/L Chloride Level 103 98-107 mmol/L Carbon Dioxide Level 27 21-32 mmol/L Anion Gap 9.0 3-11 mmol/L Blood Urea Nitrogen 17 7-18 mg/dl Creatinine 1.32 0.60-1.40 mg/dl Est Creatinine Clear Calc Drug Dose 60.0 ml/min Estimated GFR () 60.3 Estimated GFR (Non- 52.0 BUN/Creatinine Ratio 12.9 10-20 Random Glucose 127 70-99 mg/dl Lactic Acid Level 2.4 1.0 0.4-2.0 mmol/L Calcium Level 9.4 8.5-10.1 mg/dl Total Bilirubin 0.7 0.2-1 mg/dl Aspartate Amino Transf (AST/SGOT) 38 15-37 U/L Alanine Aminotransferase (ALT/SGPT) 27 12-78 U/L Alkaline Phosphatase 53 45-117 U/L Troponin I < 0.015 0-0.045 ng/ml Pro-B-Type Natriuretic Peptide 2479 0-1800 pg/ml Total Protein 7.2 6.4-8.2 gm/dl Albumin 4.0 3.4-5.0 gm/dl Globulin 3.2 2.5-4.0 gm/dl Albumin/Globulin Ratio 1.3 0.9-2 Lipase 9865 8871 73-393 U/L Urine Color YELLOW Urine Appearance CLEAR CLEAR Urine pH 8.0 4.5-7.5 Urine Specific [place] > 1.045 1.000-1.030 Urine Protein NEG NEG Urine Glucose (UA) NEG NEG Urine Ketones NEG NEG Urine Occult Blood NEG NEG Urine Nitrite NEG NEG Urine Bilirubin NEG NEG Urine Urobilinogen NEG NEG Urine Leukocyte Esterase NEG NEG Assessment and Plan This is a 77 y/o M who presents with persistent epigastric abdominal pain and found to have pancreatitis with unknown primary cause, drug induced vs gallstone Pancreatitis - unknown primary cause, could be due to namenda use - Lipase - 9000 and decreased to 8871 this morning - No evidence of necrosis on CT - GB US with mild distention - Increased NS to 125ml/hr - NPO - GI consult - Zofran, Morphine for nausea and pain control Dementia - Continue donepezil - memantine held Dvt proph - Lovenox Pulmonary fibrosis- chronic - ?mild worsening on xray vs. pulm edema. Gerd - Protonix Dispo - lives at home with - ordered PT/OT Code: - DNR Resident Physician Supervision Note: I interviewed and examined the patient. Discussed with Dr. Dom Carrillo and agree with findings and plan as documented in the note. Any exceptions or clarifications are listed here: None this pt is with little pain, but has had unintentional weight loss of 25 # as an outpt, still with elevated lipase vitals are stable abd is soft, mild epigastric tenderness to palpitation unexplained pancreatitis, does have gall bladder sludge but has no obstructive numbers, will keep npo and await GI med review, consider MRCP. additionally Dr Carrillo notes that his namenda may be implicated in pancreatitis Documented By: Rupert Denny Continued [facility] stay due to: multiple IV medications needed
[2017-11-01] MEDS: PANTOprazole INJ 40 MG in SYRINGE 0 ML IV SCH (10:36)
[2017-11-01 15:52] VITALS: BP 105/66; PULSE 76; TEMP 36.8; O2SAT 99
[2017-11-01] MEDS: DONEPEZIL HCL 10 MG TAB PO SCH (21:00)
--- NOTE | 2017-11-01 21:33 | GASTROINTESTINAL CONSULTATION ---
DATE OF CONSULTATION: 11/01/2017 CHIEF COMPLAINT: Abdominal pain, acute pancreatitis. HISTORY OF PRESENT ILLNESS: Mr. Dominguez is a 77-year-old white male with dementia, who has been experiencing abdominal pain that seemed to intensify over the last few days. Generally, it has been intermittent over the last several weeks. According to the history and physical (the patient has dementia and does not appear to be oriented to place, time or aware of his medical history at this time), there has been no association with food and he has no known history of peptic ulcer disease. There was no report of bloody emesis but there was a report of an episode of vomiting in the Emergency Room. There has been no diarrhea. The patient has apparently no prior history of pancreatitis. PAST MEDICAL HISTORY: Includes GERD, hyperlipidemia, dementia, pulmonary fibrosis, knee replacement. ALLERGIES: THE PATIENT IS ALLERGIC TO HORSE PROTEINS. HOME MEDICATIONS: Include alpha lipoic acid, aspirin, calcium carbonate, cholecalciferol, coenzyme Q10, B12, donepezil, Namenda/memantine, multivitamins, probiotics, ranitidine daily and B1 daily. FAMILY HISTORY: Noncontributory. SOCIAL HISTORY: The patient was a former smoker. He is and retired. REVIEW OF SYSTEMS: Otherwise unremarkable per the medical record, although these could not be adequately obtained from the patient directly. LABORATORY STUDIES: On admission, the patient's white count was 9.3 with a hemoglobin of 13.3, MCV of 96, platelets 160,000. INR was 1.0. BUN and creatinine of 17 and 1.3. Lactate 2.4. Total bilirubin 0.7, AST 38, ALT 27, alkaline phosphatase 53, troponin less than 0.015. The patient's natriuretic peptide is elevated at 2479 and normal albumin. The lipase is elevated at 9865. PHYSICAL EXAMINATION: VITAL SIGNS: On admission, the patient was afebrile, blood pressure 145/81, respirations 18, pulse 59, pulse ox 98. These remained relatively stable through midnight today. GENERAL: Today, the patient is awake and appears alert but is not oriented to place or time but does respond to his name. He is resting comfortably in bed. HEENT: Sclerae are anicteric, conjunctivae moist. Oral mucosa moist. HEART: Normal S1, S2. LUNGS: Clear to auscultation. ABDOMEN: Soft, mildly tender in the epigastrium without rebound or guarding. There is no evidence of ascites or shifting dullness. There is no rebound or guarding. There are positive bowel sounds. EXTREMITIES: Without clubbing, cyanosis or edema. Extremities show normal range of motion. NEUROLOGIC: There are no focal deficits, although his cognitive aspects are described above. IMAGING STUDIES: On admission demonstrated a chest x-ray with interstitial thickening that may reflect progression of pulmonary fibrosis versus mild pulmonary edema. An abdominal CT revealed a normal appearing pancreas. This was an IV contrast only study. The liver has normal contrast, there is no ductal dilation. The hepatic and portal veins are patent. Spleen is normal. Adrenal glands unremarkable. Peritoneum shows a fat-containing left inguinal hernia. There is fecal retention. No evidence of a transition zone or bowel obstruction. Acute diverticulitis is not identified. The gallbladder is mildly distended with possible sludge. The patient had a gallbladder ultrasound which also revealed an overall normal appearing liver. The bile duct is 5 mm in diameter without intrahepatic ductal dilatation. Gallbladder is distended with sludge noted; however, there are no gallstones or gallbladder wall thickening. There is no fluid around the gallbladder. IMPRESSION AND PLAN: The patient with several weeks of abdominal pain that seemed to be more constant over the short period of time prior to the patient's admission. Accurate history is unable to be obtained from the patient. It would appear that there is evidence for biochemical pancreatitis with an elevated lipase; however, there are no obvious inflammatory features seen in the pancreas on CT imaging. LFTs are normal, and therefore, gallstone pancreatitis would be less likely but still need to be considered in light of the possibility of sludge in the gallbladder. I made the following recommendations. Presently, would follow pancreatic enzymes and LFTs and consider an MRCP to see if there is any evidence for a retained stone or sludge in the biliary system, although there is currently no ductal dilation. I would ask surgery to see the patient if not already requested, to see if a consideration for cholecystectomy is necessary. We will continue to follow with you. Would maintain n.p.o. through today and early tomorrow and can consider advancing to clear liquids only depending on the patient's laboratory studies and clinical assessment. Thank you for allowing me to participate in this patient's care.
[2017-11-01 23:16] VITALS: BP 112/70; PULSE 69; TEMP 36.1; O2SAT 94
[2017-11-02] MEDS: SODIUM CHLORIDE 0.9% 1000ML 1,000 ML IV SCH ×2 (03:49→12:30)
[2017-11-02 07:45] VITALS: BP 108/68; PULSE 73; TEMP 36.4; O2SAT 95
[2017-11-02] MEDS: CALCIUM 600MG + VIT D 400 IU TAB PO SCH (07:49)
[2017-11-02] MEDS: THIAMINE HCL 100 MG TAB PO SCH (07:50)
[2017-11-02] MEDS: CHOLECALCIFEROL 1000 INTER.UNIT TAB PO SCH (07:50)
[2017-11-02] MEDS: CYANOCOBALAMIN 500 MCG TAB (VIT B-12) PO SCH (07:50)
[2017-11-02] MEDS: ASPIRIN 81 MG ECTAB PO SCH (07:50)
[2017-11-02] MEDS: ENOXAPARIN 40 MG/0.4 ML SYR SQ SCH (08:40)
[2017-11-02 08:57] LABS: HEMOGLOBIN 11.4 g/dL (14.0-18.0); MEAN CELL VOLUME 97.1 fL (80-100); MEAN CORPUSCULAR HEMOGLOBIN 32.6 pg (25-34); MEAN CORPUSCULAR HGB CONC 33.5 g/dl (32-36); MEAN PLATELET VOLUME 11.4 fL (7.4-10.4); PLATELET COUNT 123 K/uL (130-400); RED CELL DISTRIBUTION WIDTH CV 14.1 % (11.5-14.5); RED CELL DISTRIBUTION WIDTH SD 50.2 fL (36.4-46.3); WHITE BLOOD COUNT 6.31 K/uL (4.8-10.8)
[2017-11-02 09:29] LABS: ALBUMIN 2.9 gm/dl (3.4-5.0); CALCIUM 8.4 mg/dl (8.5-10.1); CREATININE 0.82 mg/dl (0.60-1.40); POTASSIUM 3.9 mmol/L (3.5-5.1)
[2017-11-02 09:33] LABS: TOTAL PROTEIN 5.7 gm/dl (6.4-8.2)
[2017-11-02] MEDS: PANTOprazole INJ 40 MG in SYRINGE 0 ML IV SCH (11:04)
--- NOTE | 2017-11-02 13:57 | Surgery Consultation ---
Consultation Date of Consultation: Nov 02, 2017. Attending Physician: Tian Guthrie MD Reason for Consultation: Pancreatitis, questionable gallstone pancreatitis History of Present Illness Otto is a pleasant 77 year-old male with dementia who presented to emergency department in the late evening of 10/31/2017 with complaint of epigastric abdominal pain that was severe in nature. Given Dementia most of history was obtained by who is present in the room. She states he was having intermittent upper abdominal pain that would come and go for the past few weeks but suddenly complained of severe abdominal pain and she brought him to the emergency room. denies of any nausea, vomiting (until he was in the emergency room had an episode of vomiting), diarrhea, or chest pain. Had some shortness of breath with the pain. Has history of pulmonary fibrosis. Does not require any oxygen at home. Limited history given the Dementia. Patient pleasant confused. Sleeping on encounter. In the ER workup showed no leukocytosis, no elevation in T. Bili, slight elevation in AST at 38, Lipase elevated at 9865. Lactic acid also elevated at 2.4. CT scan of abdomen and pelvis with IV contrast only showed distended gallbladder with possible sludge Gallbladder ultrasound showed distended gallbladder up to 10 cm in length with gallbladder sludge, no gallstones. No evidence of pericholecystic fluid or gallbladder wall thickening Past Medical/Surgical History Past Medical History: (1) Epigastric abdominal pain (2) GERD (gastroesophageal reflux disease) (3) Hyperlipidemia Nec/Nos (4) Memory Loss, Dementia (5) Pulmonary Fibrosis, Unspecified Past Surgical History: Knee replacement x 2 Multiple hernia repairs in his 20's Back surgery Social History Smoking Status: Former Smoker Marital Status: Housing Status: lives with family Occupation Status: retired Allergies Coded Allergies: Horse Serum Proteins (Verified Allergy, Unknown, "CAN'T REMEMBER", ) Home Medications Scheduled Alpha-Lipoic Acid (Thioctic Ac (Alpha Lipoic Acid), 300 MG PO DAILY Aspirin (Aspirin 81), 81 MG PO QAM Calcium Carbonate-Vitamin D (Calcium + D3 600-200 mg-Unit), 1 TAB PO DAILY Cholecalciferol (Vitamin D), 1,000 UNITS PO DAILY Coenzyme Q10 (Ubidecarenone) (Co Q 10), 100 MG PO QAM Cyanocobalamin (Vitamin B12 500MCG), 500 MCG PO DAILY Donepezil HCl (Donepezil HCl), 10 MG PO HS Memantine (Namenda), 5 MG PO BID Multivitamins/Minerals (Mvi With Minerals), 1 TAB PO DAILY Probiotic Product (Probiotic), 1 CAP PO DAILY Ranitidine (Zantac), Unknown Dose PO DAILY Thiamine Hcl (Vitamin B1), 250 MG PO QAM Scheduled PRN Betamethasone Dip (Betamethasone Dipropionat), 1 APPLN TOP BID PRN for Carboxymethylcellulose-Glyceri (Refresh Optive 1-0.9 %), 1 APPLN OPB DAILY PRN for Ipratropium Monitor (Nasal) (Ipratropium Monitor), 2 SPRAYS HEIDI TID PRN for Polyethylene (Miralax), 17 GM PO DAILY PRN for Constipation Current Inpatient Medications Current Inpatient Medications Medications (Trade) Dose Ordered Sig/Byron Route Start Time Stop Time Status Last Admin Dose Admin Ioversol (Optiray 320) 100 ml UD PRN IV 10/31/17 22:15 11/04/17 22:14 Enoxaparin Sodium (Lovenox Inj) 40 mg Q24H SQ 11/01/17 09:00 12/01/17 08:59 11/02/17 08:40 40 MG Acetaminophen (Tylenol Tab) 650 mg Q4H PRN PO 11/01/17 01:15 12/01/17 01:14 Al Hydrox/Mg Hydrox/Simethicone (Maalox Max Susp) 15 ml Q4H PRN PO 11/01/17 01:15 12/01/17 01:14 Magnesium Hydroxide (Milk Of Magnesia Susp) 30 ml Q6H PRN PO 11/01/17 01:15 12/01/17 01:14 Polyethylene (Miralax Powder Packet) 17 gm DAILY PRN PO 11/01/17 02:00 12/01/17 01:59 Ondansetron HCl (Zofran Inj) 4 mg Q6H PRN IV 11/01/17 01:15 12/01/17 01:14 Aspirin (Ecotrin Tab) 81 mg QAM PO 11/01/17 09:00 12/01/17 08:59 Cholecalciferol (Vitamin D Tab) 1,000 inter.unit DAILY PO 11/01/17 09:00 12/01/17 08:59 Cyanocobalamin (Vitamin B-12 Tab) 500 mcg DAILY PO 11/01/17 09:00 12/01/17 08:59 Donepezil HCl (Aricept Tab) 10 mg HS PO 11/01/17 21:00 12/01/17 20:59 Memantine (Namenda Tab) 5 mg BID PO 11/01/17 09:00 12/01/17 08:59 Future Hold Betamethasone Dipropion Augmented (Diprolene 0.05% Cr) 1 appln BID PRN EXT 11/01/17 01:15 12/01/17 01:14 Calcium/Vitamin D (Caltrate Plus Tab) 1 tab DAILY PO 11/01/17 09:00 12/01/17 08:59 Artificial Tears (Lacri-Lube Oph Oint) 1 appln DAILY PRN OPB 11/01/17 02:15 12/01/17 02:14 Miscellaneous Information (Order Awaiting Action) 1 ea QS N/A 11/01/17 08:00 12/01/17 07:59 Thiamine HCl (Vitamin B-1 Tab) 250 mg DAILY PO 11/01/17 09:00 12/01/17 08:59 Sodium Chloride 1,000 ml @ 125 mls/hr Q8H IV 11/01/17 02:15 12/01/17 02:14 11/02/17 12:30 125 MLS/HR Pantoprazole Sodium 40 mg/ Syringe 10 ml @ 5 mls/min DAILY@11 IV 11/01/17 11:00 12/01/17 10:59 11/02/17 11:04 5 MLS/MIN Morphine Sulfate (MoRPHine SULFATE INJ) 2 mg Q4H PRN IV 11/01/17 02:30 11/15/17 02:29 11/01/17 16:09 2 MG Albuterol/ Ipratropium (Duoneb) 3 ml Q4R PRN INH 11/01/17 06:15 12/01/17 06:14 Review of Systems Constitutional: No fever, No chills, No sweats Respiratory: + shortness of breath Cardiovascular: No chest pain Abdomen: + pain (epigastric pain), + vomiting, No nausea, No diarrhea, No constipation Integumentary: No rash, No color change Physical Exam Date Time Temp Pulse Resp B/P (MAP) Pulse Ox O2 Delivery O2 Flow Rate FiO2 11/02/17 07:45 36.4 73 16 108/68 (81) 95 Room Air 11/02/17 07:40 Room Air 11/01/17 23:45 Room Air 11/01/17 23:16 36.1 69 17 112/70 (84) 94 Room Air 11/01/17 15:52 36.8 76 16 105/66 (79) 99 Room Air 11/01/17 15:45 Room Air General Appearance: WD/WN, no apparent distress (sleeping on encounter, when aroused, pleasantly confused) Head: normocephalic, atraumatic Eyes: sclerae normal ENT: hearing grossly normal Neck: trachea midline Respiratory/Chest: lungs clear, normal breath sounds, no respiratory distress, no accessory muscle use Cardiovascular: regular rate, rhythm, no murmur Abdomen/GI: soft, no organomegaly, no pulsatile mass, + tenderness (epigastric but no peritonitis , rigidity, or guarding, right lower abdominal vertical scar present) Back: normal inspection Extremities/Musculoskelatal: normal inspection, no pedal edema Neurologic/Psych: alert, + disoriented Skin: normal color, warm/dry, no rash Laboratory Results Last 24 Hours Test 11/02/17 08:09 White Blood Count 6.31 K/uL Red Blood Count 3.50 M/uL Hemoglobin 11.4 g/dL Hematocrit 34.0 % Mean Corpuscular Volume 97.1 fL Mean Corpuscular Hemoglobin 32.6 pg Mean Corpuscular Hemoglobin Concent 33.5 g/dl RDW Standard Deviation 50.2 fL RDW Coefficient of Variation 14.1 % Platelet Count 123 K/uL Mean Platelet Volume 11.4 fL Sodium Level 140 mmol/L Potassium Level 3.9 mmol/L Chloride Level 107 mmol/L Carbon Dioxide Level 27 mmol/L Anion Gap 5.0 mmol/L Blood Urea Nitrogen 17 mg/dl Creatinine 0.82 mg/dl Est Creatinine Clear Calc Drug Dose 96.6 ml/min Estimated GFR () 99.6 Estimated GFR (Non- 85.9 BUN/Creatinine Ratio 20.0 Random Glucose 76 mg/dl Calcium Level 8.4 mg/dl Total Bilirubin 0.8 mg/dl Aspartate Amino Transf (AST/SGOT) 30 U/L Alanine Aminotransferase (ALT/SGPT) 45 U/L Alkaline Phosphatase 56 U/L Total Protein 5.7 gm/dl Albumin 2.9 gm/dl Globulin 2.8 gm/dl Albumin/Globulin Ratio 1.0 Lipase 2687 U/L CT ABD/PELVIS IV CONTRAST ONLY CLINICAL HISTORY: Generalized abdominal pain COMPARISON STUDY: None. TECHNIQUE: Following the IV administration of 115 mL of Optiray-320, CT scan of the abdomen and pelvis was performed from the lung bases to the proximal femurs. Images are reviewed in the axial, sagittal, and coronal planes. IV contrast was administered without complication. A dose lowering technique was utilized adhering to the principles of ALARA. CT DOSE: 412.43 mGy.cm FINDINGS: Lower chest: There is evidence for underlying interstitial lung disease with subpleural reticulation. The heart is enlarged. Liver: The contrast-enhanced liver is normal in size, contour, and attenuation. There is no intrahepatic biliary ductal dilatation. The hepatic veins and portal veins are patent. Gallbladder: The gallbladder is distended. There is equivocal dependent sludge. Spleen: Normal in size and attenuation. Pancreas: Unremarkable. Adrenal glands: Unremarkable. Kidneys: There is symmetric renal cortical enhancement. The kidneys are normal in size without hydronephrosis. Bowel: There is evidence for fecal retention. There are no transition zones indicate bowel obstruction. There is no evidence of acute diverticulitis. The appendix is difficult to visualize with certainty. There are no findings to indicate acute appendicitis. Peritoneum: There is no intraperitoneal free air or abdominal ascites. There is a fat-containing left inguinal hernia. Vasculature: The abdominal aorta is normal in course and caliber. Adenopathy: None. Pelvic viscera: The bladder, and pelvic viscera are unremarkable. Skeletal structures: There are postsurgical changes present within the lumbar spine. IMPRESSION: 1. No evidence of bowel obstruction. No evidence of free air 2. No evidence of acute diverticulitis. No evidence of acute appendicitis. 3. Mildly distended gallbladder with equivocal dependent sludge 4. Fat-containing left inguinal hernia 5. Fecal retention 6. Images of the lung bases suggest underlying interstitial lung disease GALLBLADDER-ABD LIMITED CLINICAL HISTORY: 77 years-old Male presenting with vomiting, pancreatitis. TECHNIQUE: Real-time grayscale and limited color Doppler ultrasound imaging of the abdomen limited to the right upper quadrant was performed. COMPARISON: CT performed earlier the same day. FINDINGS: Pancreas: Largely obscured due to overlying bowel gas. Liver: Normal echogenicity and echotexture. The liver measures 15 cm in maximal sagittal dimension. No sonographic evidence of hepatic mass. Main portal vein patent with normal directional flow. Biliary: No intrahepatic biliary ductal dilatation. Common bile duct measures up to 5 mm in diameter. Gallbladder: The gallbladder is distended measuring over 10 cm in length. Gallbladder sludge noted. No gallstones, gallbladder wall thickening, pericholecystic fluid or inflammatory change. Unable to assess sonographic Montgomery's sign. Right kidney: Not visualized due to bowel gas. Ascites: None. IMPRESSION: 1. Gallbladder sludge and mild gallbladder distention. Physiologic distention not excluded. No other findings to suggest cholecystitis. No biliary ductal dilatation. If there is continuing clinical concern, nuclear medicine HIDA scan could be obtained. Assessment & Plan 77 year-old male presented to emergency room with complaint of increasing epigastric abdominal pain and shortness of breath. History of Pulmonary fibrosis and Dementia. Most of history obtained by present at bedside. Labs showed elevated lipase [place] [address] scan showing distended gallbladder with sludge, Gallbladder ultrasound showing distended gallbladder up to 10 cm in length and gallbladder sludge, no evidence of CBD dilatation or acute cholecystitis. GI consulted and recommend MRCP to rule out choledocholithasis or sludge present in biliary system. Lipase improved to 2687 today. Plan: Would continue with MRCP as recommended by GI Continue conservative management for Pancreatitis: NPO, IV fluids, IV pain management, and IV Zofran Will await results of MRCP, may need ERCP if choledocholithiasis present Discussed with possible need for cholecystectomy. Would wait until Lipase is normalized and patient's pain has improved. understands this. Will continue to follow Dr. Leo has seen and examined patient, agrees with above.
[2017-11-02 15:07] VITALS: BP 132/87; PULSE 72; TEMP 36.3; O2SAT 95
--- NOTE | 2017-11-02 15:38 | Family Medicine Progress Note ---
Progress Note Date of Service Nov 02, 2017. Subjective Pt evaluation today including: conversation w/ patient, physical exam, chart review, lab review, conversation w/ insurance healthcare consultant, review of inpatient medication list Pain: mild PO Intake: NPO Voiding: no voiding problems Patient says he is feeling better Abdominal pain has improved He denies any nausea or vomiting Denies any fevers or chills Constitutional: No fever, No chills, No weight loss Respiratory: No cough, No sputum, No shortness of breath Cardiovascular: No chest pain, No palpitations Abdomen: + pain, No nausea, No vomiting, No diarrhea Male : No dysuria, No urinary frequency Skin: + rash (l groin), No itch Medications Current Inpatient Medications Medications (Trade) Dose Ordered Sig/Byron Route Start Time Stop Time Status Last Admin Dose Admin Ioversol (Optiray 320) 100 ml UD PRN IV 10/31/17 22:15 11/04/17 22:14 Enoxaparin Sodium (Lovenox Inj) 40 mg Q24H SQ 11/01/17 09:00 12/01/17 08:59 11/02/17 08:40 40 MG Acetaminophen (Tylenol Tab) 650 mg Q4H PRN PO 11/01/17 01:15 12/01/17 01:14 Al Hydrox/Mg Hydrox/Simethicone (Maalox Max Susp) 15 ml Q4H PRN PO 11/01/17 01:15 12/01/17 01:14 Magnesium Hydroxide (Milk Of Magnesia Susp) 30 ml Q6H PRN PO 11/01/17 01:15 12/01/17 01:14 Polyethylene (Miralax Powder Packet) 17 gm DAILY PRN PO 11/01/17 02:00 12/01/17 01:59 Ondansetron HCl (Zofran Inj) 4 mg Q6H PRN IV 11/01/17 01:15 12/01/17 01:14 Aspirin (Ecotrin Tab) 81 mg QAM PO 11/01/17 09:00 12/01/17 08:59 Cholecalciferol (Vitamin D Tab) 1,000 inter.unit DAILY PO 11/01/17 09:00 12/01/17 08:59 Cyanocobalamin (Vitamin B-12 Tab) 500 mcg DAILY PO 11/01/17 09:00 12/01/17 08:59 Donepezil HCl (Aricept Tab) 10 mg HS PO 11/01/17 21:00 12/01/17 20:59 Memantine (Namenda Tab) 5 mg BID PO 11/01/17 09:00 12/01/17 08:59 Future Hold Betamethasone Dipropion Augmented (Diprolene 0.05% Cr) 1 appln BID PRN EXT 11/01/17 01:15 12/01/17 01:14 Calcium/Vitamin D (Caltrate Plus Tab) 1 tab DAILY PO 11/01/17 09:00 12/01/17 08:59 Artificial Tears (Lacri-Lube Oph Oint) 1 appln DAILY PRN OPB 11/01/17 02:15 12/01/17 02:14 Miscellaneous Information (Order Awaiting Action) 1 ea QS N/A 11/01/17 08:00 12/01/17 07:59 Thiamine HCl (Vitamin B-1 Tab) 250 mg DAILY PO 11/01/17 09:00 12/01/17 08:59 Sodium Chloride 1,000 ml @ 125 mls/hr Q8H IV 11/01/17 02:15 12/01/17 02:14 11/02/17 12:30 125 MLS/HR Pantoprazole Sodium 40 mg/ Syringe 10 ml @ 5 mls/min DAILY@11 IV 11/01/17 11:00 12/01/17 10:59 11/02/17 11:04 5 MLS/MIN Morphine Sulfate (MoRPHine SULFATE INJ) 2 mg Q4H PRN IV 11/01/17 02:30 11/15/17 02:29 11/01/17 16:09 2 MG Albuterol/ Ipratropium (Duoneb) 3 ml Q4R PRN INH 11/01/17 06:15 12/01/17 06:14 Objective Vital Signs Date Time Temp Pulse Resp B/P (MAP) Pulse Ox O2 Delivery O2 Flow Rate FiO2 11/02/17 15:07 36.3 72 17 132/87 (102) 95 Room Air 11/02/17 07:45 36.4 73 16 108/68 (81) 95 Room Air 11/02/17 07:40 Room Air 11/01/17 23:45 Room Air 11/01/17 23:16 36.1 69 17 112/70 (84) 94 Room Air 11/01/17 15:52 36.8 76 16 105/66 (79) 99 Room Air 11/01/17 15:45 Room Air Physical Exam General Appearance: WD/WN, no apparent distress ENT: hearing grossly normal, pharynx normal Neck: no JVD, no carotid bruits, trachea midline Respiratory/Chest: lungs clear, no respiratory distress, no accessory muscle use Cardiovascular: regular rate, rhythm, no edema, no murmur Abdomen: normal bowel sounds, soft, + tenderness (mild upper abdominal tenderness) Extremities: non-tender, no pedal edema, no calf tenderness Neurologic/Psychiatric: alert, normal mood/affect, + disoriented (alert to person but not to time or place) Skin: normal color, warm/dry, no rash Laboratory Results Results Past 24 Hours Test 11/02/17 08:09 Range/Units White Blood Count 6.31 4.8-10.8 K/uL Red Blood Count 3.50 4.7-6.1 M/uL Hemoglobin 11.4 14.0-18.0 g/dL Hematocrit 34.0 42-52 % Mean Corpuscular Volume 97.1 80-100 fL Mean Corpuscular Hemoglobin 32.6 25-34 pg Mean Corpuscular Hemoglobin Concent 33.5 32-36 g/dl RDW Standard Deviation 50.2 36.4-46.3 fL RDW Coefficient of Variation 14.1 11.5-14.5 % Platelet Count 123 130-400 K/uL Mean Platelet Volume 11.4 7.4-10.4 fL Sodium Level 140 136-145 mmol/L Potassium Level 3.9 3.5-5.1 mmol/L Chloride Level 107 98-107 mmol/L Carbon Dioxide Level 27 21-32 mmol/L Anion Gap 5.0 3-11 mmol/L Blood Urea Nitrogen 17 7-18 mg/dl Creatinine 0.82 0.60-1.40 mg/dl Est Creatinine Clear Calc Drug Dose 96.6 ml/min Estimated GFR () 99.6 Estimated GFR (Non- 85.9 BUN/Creatinine Ratio 20.0 10-20 Random Glucose 76 70-99 mg/dl Calcium Level 8.4 8.5-10.1 mg/dl Total Bilirubin 0.8 0.2-1 mg/dl Aspartate Amino Transf (AST/SGOT) 30 15-37 U/L Alanine Aminotransferase (ALT/SGPT) 45 12-78 U/L Alkaline Phosphatase 56 45-117 U/L Total Protein 5.7 6.4-8.2 gm/dl Albumin 2.9 3.4-5.0 gm/dl Globulin 2.8 2.5-4.0 gm/dl Albumin/Globulin Ratio 1.0 0.9-2 Lipase 2687 73-393 U/L Assessment and Plan This is a 77 y/o M who presents with persistent epigastric abdominal pain and found to have pancreatitis with unknown primary cause, drug induced vs gallstone Pancreatitis - unknown primary cause, could be due to namenda use - Lipase - decreased from 8800 to 2600 - No evidence of necrosis on CT - GB US with mild distention - MRCP ordered today - Change IVF to lactated ringers 125mls/hr - NPO - GI consult- suggest ordering MRCP - Zofran, Morphine for nausea and pain control - Surgery consulted in case patient would need cholcystectomy Dementia - Continue donepezil - memantine held Dvt proph - Lovenox Pulmonary fibrosis- chronic - ?mild worsening on xray vs. pulm edema. Gerd - Protonix Dispo - lives at home with - ordered PT/OT and recommend to go home with Code: - DNR Resident Physician Supervision Note: I was present with PGY2 Dr. Dom Carrillo during the history and exam. I discussed the case with the resident and agree with the findings and plan as documented in the note. Any exceptions or clarifications are listed here: none. Pt's abd pain, nausea, emesis all resolved. Feels better. Denies dyspnea. Denies recent etoh usage. VSS no fever gen - nad neck - no JVD heart - RRR lungs - bibasilar rales with occasional wheeze abd - soft, NT, ND, BS+, no HSM ext - no edema lipase <3000 LFTS wnl A/P: acute pancreatitis - clinically improved. allow ice chips. continue LR hydration. etiology - biliary (gall bladder sludge)? meds (namenda)? other? await MRCP. await gen surg eval. appreciate GI evaluation. Tian Guthrie MD Documented By: Tian Guthrie Continued [facility] stay due to: multiple IV medications needed Discharge planning: home
[2017-11-02 16:00] VITALS: O2SAT 95
[2017-11-02] MEDS: LACTATED RINGER'S 1000ML 1,000 ML IV SCH ×2 (16:44→23:13)
[2017-11-02 19:10] VITALS: O2SAT 95
--- NOTE | 2017-11-02 19:43 | GASTROENTEROLOGY PROGRESS NOTE ---
DATE: 11/02/2017 SUBJECTIVE: The patient is accompanied by his spouse this evening. Chart reviewed, patient examined. He appears to be more alert and oriented than he was last evening when I met him. His pain is considerably diminished and he had reported initially a pain of 9/10 on admission and is perhaps 2 or at most 3/10 at this time. His lipase level has also decreased from 9865 on admission through 8871 yesterday and 2687 today. LFTs remains normal with total bilirubin 0.8, AST 30, ALT 45, alkaline phosphatase 56. The lactate level is also now normal at 1. The patient has imaging studies that suggest sludge in the gallbladder but no evidence of ductal dilation or filling defects in the bile duct. MRCP is ordered but has not yet been performed. The patient's states that there is tentative plans for a cholecystectomy tomorrow. OBJECTIVE: VITAL SIGNS: Vital signs were reviewed and are stable including temperature of 36.3, blood pressure 132/87, 95% on room air, respirations 17, heart rate 72. GENERAL: The patient is awake and alert and appears oriented to person and place. HEENT: The oral mucosa moist. HEART: Normal S1, S2. LUNGS: Clear to auscultation. ABDOMEN: Soft, minimally tender in the epigastrium without rebound or guarding. There is no evidence of ascites or shifting dullness. There are no abdominal bruits. EXTREMITIES: Without clubbing, cyanosis or edema. There is no rebound or guarding. RECTAL: Deferred. ASSESSMENT AND PLAN: The patient awaiting MRCP and anticipated cholecystectomy depending on findings. If there is evidence of retained stones or sludge, then ERCP may be necessary. It is curious that the patient's presentation occurred in the absence of a liver test elevations that would be more consistent with gallstone pancreatitis. The only new medication that the patient's reports is Namenda and a brief review of the adverse effects does not suggest pancreatitis as as a side effect. This may need to be further explored as there are no other new medications for the patient. Would continue to keep the patient with ice chips only until a determination for surgery can be made. Once this is achieved, maintaining a low fat diet would be reasonable. All questions answered.
[2017-11-02] MEDS: DONEPEZIL HCL 10 MG TAB PO SCH (20:31)
--- NOTE | 2017-11-02 21:29 | DIAGNOSTIC IMAGING REPORT ---
ORBITS FOR MRI CLINICAL HISTORY: 77 years-old Male presenting with Getting MRCP and need orbit XRAYS. TECHNIQUE: 2 views of the orbits were obtained. COMPARISON: None. FINDINGS: Extensive fixation hardware in the maxilla and mandible. No radiopaque foreign body projects over the orbits. Bony orbits grossly intact. Paranasal sinuses grossly clear. Visualized portion of the calvarium intact. IMPRESSION: No intraorbital metallic foreign body to preclude MRI exam. The fixation hardware in the oral cavity does not preclude MRI. Electronically signed by: Tru Valentino M.D. 11/02/2017 9:27 PM Dictated Date/Time: 11/02/2017 9:26 PM
[2017-11-02 23:36] VITALS: BP 131/80; PULSE 72; TEMP 36.4; O2SAT 95
[2017-11-03] MEDS: LACTATED RINGER'S 1000ML 1,000 ML IV SCH ×2 (07:09→16:41)
--- NOTE | 2017-11-03 07:33 | DIAGNOSTIC IMAGING REPORT ---
MRCP HISTORY: 77 years-old Male Abdominal pain gallbladder sludge and gallbladder distention with acute generalized abdominal pain, nausea and vomiting. Reported acute pancreatitis. COMPARISON: CT abdomen and pelvis 10/31/2017, gallbladder ultrasound 10/31/2017 TECHNIQUE: MRCP with MIP reformats obtained secondary to institutional protocol. No IV contrast was administered. FINDINGS: The exam is moderately motion degraded. Artifact from posterior feliberto and screw fusion hardware involving the lumbar spine. Trace right pleural effusion. Kidneys, spleen and pancreas appear grossly unremarkable. Moderate gallbladder distention measures up to 10.3 x 4.9 cm with mild degree of layering sludge seen in the gallbladder neck. Mild gallbladder wall thickening, 4 mm. No intrahepatic or pancreatic ductal dilation. No evidence of pancreatic divisum. Common bile duct is normal, 4 mm. No filling defects or focal strictures of the common bile duct. IMPRESSION: 1. Gallbladder distention with mild gallbladder wall thickening and layering sludge. Correlate clinically to exclude acalculus cholecystitis. 2. No biliary ductal dilation or common bile duct filling defects identified. The above report was generated using voice recognition software. It may contain grammatical, syntax or spelling errors. Electronically signed by: Claudio Jesus M.D. 11/03/2017 7:32 AM Dictated Date/Time: 11/03/2017 7:16 AM
[2017-11-03 07:49] VITALS: BP 126/75; PULSE 61; TEMP 36.4; O2SAT 97
[2017-11-03] MEDS: ASPIRIN 81 MG ECTAB PO SCH (08:57)
[2017-11-03] MEDS: THIAMINE HCL 100 MG TAB PO SCH (08:57)
[2017-11-03] MEDS: CALCIUM 600MG + VIT D 400 IU TAB PO SCH (08:57)
[2017-11-03] MEDS: CYANOCOBALAMIN 500 MCG TAB (VIT B-12) PO SCH (08:57)
[2017-11-03] MEDS: CHOLECALCIFEROL 1000 INTER.UNIT TAB PO SCH (08:58)
[2017-11-03] MEDS: ENOXAPARIN 40 MG/0.4 ML SYR SQ SCH (08:58)
[2017-11-03 09:12] LABS: HEMATOCRIT 37.6 % (42-52); HEMOGLOBIN 12.5 g/dL (14.0-18.0); MEAN CELL VOLUME 96.7 fL (80-100); MEAN CORPUSCULAR HEMOGLOBIN 32.1 pg (25-34); MEAN CORPUSCULAR HGB CONC 33.2 g/dl (32-36); MEAN PLATELET VOLUME 11.2 fL (7.4-10.4); PLATELET COUNT 134 K/uL (130-400); RED CELL DISTRIBUTION WIDTH CV 13.8 % (11.5-14.5); RED CELL DISTRIBUTION WIDTH SD 49.2 fL (36.4-46.3)
[2017-11-03 09:51] LABS: CALCIUM 8.8 mg/dl (8.5-10.1); CREATININE 0.78 mg/dl (0.60-1.40); POTASSIUM 3.8 mmol/L (3.5-5.1)
[2017-11-03 09:53] LABS: TOTAL PROTEIN 6.2 gm/dl (6.4-8.2)
[2017-11-03] MEDS: PANTOprazole INJ 40 MG in SYRINGE 0 ML IV SCH (11:16)
--- NOTE | 2017-11-03 12:58 | Family Medicine Progress Note ---
Progress Note Date of Service Nov 03, 2017. Subjective Pt evaluation today including: conversation w/ patient, physical exam, chart review, conversation w/ surgical product sales consultant, review of inpatient medication list Pain: none at rest PO Intake: Sips and chips Voiding: no voiding problems Patient is feeling better today Abdomen is not painful but he can elicit pain with palpation He does not have any nausea or vomiting let us know that she spoke to surgeon and he told them that he would be doing surgery next week as outpatient Constitutional: No fever, No chills, No sweats Respiratory: + cough, + sputum, No shortness of breath Cardiovascular: No chest pain, No edema Abdomen: No pain, No nausea, No vomiting, No diarrhea, No constipation Medications Current Inpatient Medications Medications (Trade) Dose Ordered Sig/Byron Route Start Time Stop Time Status Last Admin Dose Admin Ioversol (Optiray 320) 100 ml UD PRN IV 10/31/17 22:15 11/04/17 22:14 Enoxaparin Sodium (Lovenox Inj) 40 mg Q24H SQ 11/01/17 09:00 12/01/17 08:59 11/03/17 08:58 40 MG Acetaminophen (Tylenol Tab) 650 mg Q4H PRN PO 11/01/17 01:15 12/01/17 01:14 Al Hydrox/Mg Hydrox/Simethicone (Maalox Max Susp) 15 ml Q4H PRN PO 11/01/17 01:15 12/01/17 01:14 Magnesium Hydroxide (Milk Of Magnesia Susp) 30 ml Q6H PRN PO 11/01/17 01:15 12/01/17 01:14 Polyethylene (Miralax Powder Packet) 17 gm DAILY PRN PO 11/01/17 02:00 12/01/17 01:59 Ondansetron HCl (Zofran Inj) 4 mg Q6H PRN IV 11/01/17 01:15 12/01/17 01:14 Aspirin (Ecotrin Tab) 81 mg QAM PO 11/01/17 09:00 12/01/17 08:59 Cholecalciferol (Vitamin D Tab) 1,000 inter.unit DAILY PO 11/01/17 09:00 12/01/17 08:59 Cyanocobalamin (Vitamin B-12 Tab) 500 mcg DAILY PO 11/01/17 09:00 12/01/17 08:59 Donepezil HCl (Aricept Tab) 10 mg HS PO 11/01/17 21:00 12/01/17 20:59 11/02/17 20:31 10 MG Memantine (Namenda Tab) 5 mg BID PO 11/01/17 09:00 12/01/17 08:59 Future Hold Betamethasone Dipropion Augmented (Diprolene 0.05% Cr) 1 appln BID PRN EXT 11/01/17 01:15 12/01/17 01:14 Calcium/Vitamin D (Caltrate Plus Tab) 1 tab DAILY PO 11/01/17 09:00 12/01/17 08:59 Artificial Tears (Lacri-Lube Oph Oint) 1 appln DAILY PRN OPB 11/01/17 02:15 12/01/17 02:14 Miscellaneous Information (Order Awaiting Action) 1 ea QS N/A 11/01/17 08:00 12/01/17 07:59 Thiamine HCl (Vitamin B-1 Tab) 250 mg DAILY PO 11/01/17 09:00 12/01/17 08:59 Pantoprazole Sodium 40 mg/ Syringe 10 ml @ 5 mls/min DAILY@11 IV 11/01/17 11:00 12/01/17 10:59 11/03/17 11:16 5 MLS/MIN Morphine Sulfate (MoRPHine SULFATE INJ) 2 mg Q4H PRN IV 11/01/17 02:30 11/15/17 02:29 11/01/17 16:09 2 MG Albuterol/ Ipratropium (Duoneb) 3 ml Q4R PRN INH 11/01/17 06:15 12/01/17 06:14 Lactated Ringer's 1,000 ml @ 75 mls/hr [id number] IV 11/02/17 15:45 12/02/17 15:44 11/03/17 07:09 125 MLS/HR Albuterol/ Ipratropium (Duoneb) 3 ml Q6 INH 11/03/17 12:45 12/03/17 12:44 UNV Objective Vital Signs Date Time Temp Pulse Resp B/P (MAP) Pulse Ox O2 Delivery O2 Flow Rate FiO2 11/03/17 07:49 36.4 61 16 126/75 (92) 97 Room Air 11/03/17 07:40 Room Air 11/02/17 23:36 36.4 72 19 131/80 (97) 95 Room Air 11/02/17 19:10 95 Room Air 11/02/17 16:00 95 Room Air 11/02/17 15:07 36.3 72 17 132/87 (102) 95 Room Air Physical Exam General Appearance: WD/WN, no apparent distress Neck: supple, no JVD, no carotid bruits Respiratory/Chest: chest non-tender, no respiratory distress, no accessory muscle use, + wheezing (very mild bilateral wheeze) Cardiovascular: regular rate, rhythm, no JVD, no murmur Abdomen: normal bowel sounds, soft, + tenderness (mild tenderness in upper abdomen) Extremities: non-tender, no pedal edema, no calf tenderness Skin: normal color, warm/dry, no rash Laboratory Results Results Past 24 Hours Test 11/03/17 08:46 Range/Units White Blood Count 5.70 4.8-10.8 K/uL Red Blood Count 3.89 4.7-6.1 M/uL Hemoglobin 12.5 14.0-18.0 g/dL Hematocrit 37.6 42-52 % Mean Corpuscular Volume 96.7 80-100 fL Mean Corpuscular Hemoglobin 32.1 25-34 pg Mean Corpuscular Hemoglobin Concent 33.2 32-36 g/dl RDW Standard Deviation 49.2 36.4-46.3 fL RDW Coefficient of Variation 13.8 11.5-14.5 % Platelet Count 134 130-400 K/uL Mean Platelet Volume 11.2 7.4-10.4 fL Sodium Level 138 136-145 mmol/L Potassium Level 3.8 3.5-5.1 mmol/L Chloride Level 107 98-107 mmol/L Carbon Dioxide Level 24 21-32 mmol/L Anion Gap 7.0 3-11 mmol/L Blood Urea Nitrogen 13 7-18 mg/dl Creatinine 0.78 0.60-1.40 mg/dl Est Creatinine Clear Calc Drug Dose 101.6 ml/min Estimated GFR () 101.6 Estimated GFR (Non- 87.7 BUN/Creatinine Ratio 16.7 10-20 Random Glucose 71 70-99 mg/dl Calcium Level 8.8 8.5-10.1 mg/dl Total Bilirubin 0.9 0.2-1 mg/dl Aspartate Amino Transf (AST/SGOT) 24 15-37 U/L Alanine Aminotransferase (ALT/SGPT) 39 12-78 U/L Alkaline Phosphatase 59 45-117 U/L Total Protein 6.2 6.4-8.2 gm/dl Albumin 3.0 3.4-5.0 gm/dl Globulin 3.2 2.5-4.0 gm/dl Albumin/Globulin Ratio 0.9 0.9-2 Lipase 8 73-393 U/L Assessment and Plan This is a 77 y/o M who presents with persistent epigastric abdominal pain and found to have pancreatitis. MRCP results showed gallbladder wall thickening, gallbladder distention and layering sludge. This was talked about with the surgeon and he has said that the patient would not be a surgical candidate this weekend and he would not be able to do the surgery this weekend. He will be doing next Tuesday as an outpatient. This was discussed between the family, Dr. Guthrie and myself. Pancreatitis - likely due to gallbladder disease - Lipase - decreased from 8800 to 2600 to 2000 - No evidence of necrosis on CT - GB US with mild distention - MRCP showed mild gallbladder wall thickening, sludge in the gallbladder and gallbladder distention - Decrease IVF to 75mls/hr - Advance diet to full liquid diet for 24 hours - Zofran, Morphine for nausea and pain control - Surgery consulted and will do surgery next week as an outpatient - Patient to be started on cipro and flagyl IV Dementia - Continue donepezil - memantine held Dvt proph - Lovenox Pulmonary fibrosis- chronic - patient does follow with pulm as outpatient and does not use any inhalers - Will order duonebs q6 Gerd - Protonix Dispo - lives at home with - ordered PT/OT and recommend to go home with Code: - DNR Resident Physician Supervision Note: I was present with PGY2 Dr. Dom Carrillo during the history and exam. I discussed the case with the resident and agree with the findings and plan as documented in the note. Any exceptions or clarifications are listed here: after multiple discussions with gen surg today the patient likely will have cholecystectomy tomorrow. Pt feeling well. Scant abdominal pain. Tolerating ice chips. Has cough with mucous production but denies dyspnea/orthopnea. VSS no fever o2 sats wnl gen - nad neck - no JVD heart - RRR lungs - bibasilar rales with occasional wheeze - unchanged from yesterday's exam abd - soft, NT, ND, BS+, no HSM ext - no edema lipase <2000 LFTS wnl A/P: acute pancreatitis - clinically improved. continue LR hydration. etiology - biliary (gall bladder sludge)? meds (namenda)? other? MRCP with concern for acute cholecystitis. Thus, adding IV cipro/flagyl. probable lap freddy tomorrow. NPO after MN. repeat labs in AM. care also d/w Dr. Alejandre from GI who recommends intra-op cholangiogram to be complete. pulmonary fibrosis - add duonebs q6h. updated at bedside. Tian Guthrie MD Continued [facility] stay due to: inadequate po fluid intake Discharge planning: home
[2017-11-03] MEDS: ALBUT/IPRATROP 3MG/0.5MG NEB 3 ML VIAL INH SCH ×2 (14:14→19:05)
[2017-11-03 14:20] VITALS: PULSE 60; O2SAT 97
[2017-11-03] MEDS: MoRPHine SULFATE 2 MG/ML CARP IV PRN (15:04)
[2017-11-03 15:25] VITALS: BP 161/75; PULSE 60; TEMP 36.5; O2SAT 98
--- NOTE | 2017-11-03 15:35 | Surgery Progress Note ---
Surgery Progress Note Date of Service Nov 03, 2017. Subjective Post OP Day: HD # 2 Patient states he is feeling well, more alert today than yesterday Still pleasantly confused but answers more questions when being direct and actually asking a few questions. Abdominal pain still present but improved Tolerated full liquids without increase of abdominal pain No nausea or vomiting Objective Vital Signs: Date Time Temp Pulse Resp B/P (MAP) Pulse Ox O2 Delivery O2 Flow Rate FiO2 11/03/17 15:25 36.5 60 17 161/75 (103) 98 Room Air 11/03/17 14:20 60 18 97 Room Air 11/03/17 07:49 36.4 61 16 126/75 (92) 97 Room Air 11/03/17 07:40 Room Air 11/02/17 23:36 36.4 72 19 131/80 (97) 95 Room Air 11/02/17 19:10 95 Room Air 11/02/17 16:00 95 Room Air General Appearance: WD/WN, no apparent distress Head: normocephalic, atraumatic Neck: trachea midline Respiratory/Chest: no respiratory distress, no accessory muscle use Abdomen: non distended, soft, no organomegaly, no pulsatile mass, + tenderness (epigastrium, improved compared to yesterday) Laboratory Results: Results Past 24 Hours Test 11/03/17 08:46 Range/Units White Blood Count 5.70 4.8-10.8 K/uL Red Blood Count 3.89 4.7-6.1 M/uL Hemoglobin 12.5 14.0-18.0 g/dL Hematocrit 37.6 42-52 % Mean Corpuscular Volume 96.7 80-100 fL Mean Corpuscular Hemoglobin 32.1 25-34 pg Mean Corpuscular Hemoglobin Concent 33.2 32-36 g/dl RDW Standard Deviation 49.2 36.4-46.3 fL RDW Coefficient of Variation 13.8 11.5-14.5 % Platelet Count 134 130-400 K/uL Mean Platelet Volume 11.2 7.4-10.4 fL Sodium Level 138 136-145 mmol/L Potassium Level 3.8 3.5-5.1 mmol/L Chloride Level 107 98-107 mmol/L Carbon Dioxide Level 24 21-32 mmol/L Anion Gap 7.0 3-11 mmol/L Blood Urea Nitrogen 13 7-18 mg/dl Creatinine 0.78 0.60-1.40 mg/dl Est Creatinine Clear Calc Drug Dose 101.6 ml/min Estimated GFR () 101.6 Estimated GFR (Non- 87.7 BUN/Creatinine Ratio 16.7 10-20 Random Glucose 71 70-99 mg/dl Calcium Level 8.8 8.5-10.1 mg/dl Total Bilirubin 0.9 0.2-1 mg/dl Aspartate Amino Transf (AST/SGOT) 24 15-37 U/L Alanine Aminotransferase (ALT/SGPT) 39 12-78 U/L Alkaline Phosphatase 59 45-117 U/L Total Protein 6.2 6.4-8.2 gm/dl Albumin 3.0 3.4-5.0 gm/dl Globulin 3.2 2.5-4.0 gm/dl Albumin/Globulin Ratio 0.9 0.9-2 Lipase 2037 73-393 U/L Diagnostic Interpretation: MRCP HISTORY: 77 years-old Male Abdominal pain gallbladder sludge and gallbladder distention with acute generalized abdominal pain, nausea and vomiting. Reported acute pancreatitis. COMPARISON: CT abdomen and pelvis 10/31/2017, gallbladder ultrasound 10/31/2017 TECHNIQUE: MRCP with MIP reformats obtained secondary to institutional protocol. No IV contrast was administered. FINDINGS: The exam is moderately motion degraded. Artifact from posterior feliberto and screw fusion hardware involving the lumbar spine. Trace right pleural effusion. Kidneys, spleen and pancreas appear grossly unremarkable. Moderate gallbladder distention measures up to 10.3 x 4.9 cm with mild degree of layering sludge seen in the gallbladder neck. Mild gallbladder wall thickening, 4 mm. No intrahepatic or pancreatic ductal dilation. No evidence of pancreatic divisum. Common bile duct is normal, 4 mm. No filling defects or focal strictures of the common bile duct. IMPRESSION: 1. Gallbladder distention with mild gallbladder wall thickening and layering sludge. Correlate clinically to exclude acalculus cholecystitis. 2. No biliary ductal dilation or common bile duct filling defects identified. Assessment & Plan Questionable acute acalculous cholecystitis? Biliary Colic with biliary sludge Gallstone/Gallsludge Pancreatitis -vitals stable - no leukocytosis - abdominal pain improved - Lipase improving, 2037 today - MRCP showing mild gallbladder wall thickening at 4 mm, GB distention at 10.3 x 4.9 cm, CBD normal in caliber at 4 mm Plan: Discussed patient with Dr. Guthrie, he recommendations keeping patient in hospital until cholecystectomy given risk of having another episode of biliary colic and pain. Given evidence of wall thickening and concern for acalculous cholecystitis on MRCP plan for laparoscopic cholecystectomy tomorrow with Dr. Leo. Patient and informed of procedure and risks including bleeding, infection, injury to surrounding organs and tissues, bile duct injury, bile leak , [place], stroke, or even . Patient and understood, patient and signed consent Full liquids for dinner, NPO after midnight Hospitalist started IV Cipro/Flagyl for possible cholecystitis which I would agree to continue Continue medical management repeat am labs specifically lipase Dr. Leo has seen patient, agrees with above
[2017-11-03] MEDS ORDERED: OXYC-57 PO (15:41)
--- NOTE | 2017-11-03 15:41 | Discharge Instructions ---
Discharge Instructions Date of Service Nov 03, 2017. Admission Reason for Admission: Pancreatitis Discharge Discharge Diagnosis / Problem: Gallstone/gall sludge pancreatitis Discharge Goals Goal(s): Decrease discomfort, Improve function Activity Recommendations Activity Limitations: as noted below No heavy lifting over 20 pounds for 4 weeks No strenuous activity until cleared by surgeon No submerging incisions underwater for 2 weeks (no bathing, swimming, or hot tubs) No driving while taking narcotic pain medication or until you are pain free . Instructions / Follow-Up Instructions / Follow-Up you may shower 4 days after your surgery, sponge bath and wash hair in meantime , try to keep incisions clean and dry Replace dressings daily Leave steri strips on incisions for 7 days and then remove, they may fall off on their own that is okay walking and light activity is encouraged to prevent blood clots from forming in legs You will be given Narcotic pain medication as need for moderate to severe pain, this medication may make you drowsy. You may take extra strength Tylenol or Ibuprofen as needed for mild pain You will need to follow-up in surgical office in 2 weeks, please call office at [phone] to make an appointment Current Hospital Diet Patient's current hospital diet: Clear Liquid Diet Discharge Diet Recommended Diet: Regular Diet (slowly increase certain foods as tolerated) Pending Studies Studies pending at discharge: yes List of pending studies: gallbladder pathology will be reviewed at follow up visit Medical Emergencies . Who to Call and When: Medical Emergencies: If at any time you feel your situation is an emergency, please call 911 immediately. . Non-Emergent Contact Non-Emergency issues call your: Primary Care Provider, Surgeon Call Non-Emergent contact if: you have a fever, temperature is above 101, your pain is not controlled, your pain is worsening, your pain is unusual for you, wound has increased drainage, wound has increased redness, wound has increased pain . "Provider Documentation" section prepared by Ashanti Joe. . VTE Core Measure Inpt VTE Proph given/why not?: SCD's [place] Drug Monitoring Program Search Results: patient reviewed within database, no issues identified
--- NOTE | 2017-11-03 17:30 | Anesthesiology Progress Note ---
Anesthesia Progress Note Date of Service Nov 03, 2017. Progress Notes This is a 77 y/o w male who shall present for a laparoscopic cholecystectomy.PMHx is sig. for interstitial lung disease/pulmonary fibrosis, hyperlipidemia,GERD,pancreatitis,anemia,chronic SOB/CA and dementia.Discussed anesthesia w/pt and .All questions answered. Informed consent obtained. ASA 4
--- NOTE | 2017-11-03 20:10 | GASTROENTEROLOGY PROGRESS NOTE ---
DATE: 11/03/2017 SUBJECTIVE: The patient underwent MRCP last evening which showed changes of thickening of the gallbladder and layering sludge. There was also distention. There was no evidence of ductal dilation or common bile duct filling defects on this technique. The patient was doing well, although had some trouble with a breathing treatment that bothered him all over and this was discontinued. There is no nausea or vomiting. Review of his laboratories today demonstrated normal white count, hemoglobin 12.5. Serum chemistries show that lipase, although lower than yesterday is similar in value at 2037. It had been 2687 yesterday. LFTs are all normal today. REVIEW OF SYSTEMS: Noncontributory according to the patient's . Other than that mentioned above. OBJECTIVE: VITAL SIGNS: He is afebrile at 36.5, blood pressure 161/75, respirations 17, heart rate 60, room air 98%, respirations 17. The physical exam was deferred as the patient was sleeping. Tentative plans are for laparoscopic cholecystectomy tomorrow. If possible, we would consider an intraoperative cholangiogram to fully exclude any potential filling defects or sludge. The source of the persistent lipase elevation is unclear and this should be followed until its normalize. There have been no LFT abnormalities that would be more consistent with gallstones pancreatitis, although there is sludge in the gallbladder. We would follow lipase serially. Dr. Gong is covering tomorrow.
[2017-11-03 20:37] VITALS: BP 125/61; PULSE 60; TEMP 36.7; O2SAT 98
[2017-11-03] MEDS: DONEPEZIL HCL 10 MG TAB PO SCH (21:22)
[2017-11-03 23:12] VITALS: BP 110/61; PULSE 68; TEMP 36.6; O2SAT 95
[2017-11-04] VITALS (9 sets, daily range): BP systolic 112–145; BP diastolic 62–83; PULSE 63–79; TEMP 36.4–36.6; O2SAT 95–98
[2017-11-04] MEDS: ALBUT/IPRATROP 3MG/0.5MG NEB 3 ML VIAL INH SCH (01:28)
[2017-11-04] MEDS: LACTATED RINGER'S 1000ML 1,000 ML IV SCH ×2 (05:38→16:32)
[2017-11-04 06:36] LABS: HEMATOCRIT 36.4 % (42-52); HEMOGLOBIN 12.5 g/dL (14.0-18.0); MEAN CELL VOLUME 95.3 fL (80-100); MEAN CORPUSCULAR HEMOGLOBIN 32.7 pg (25-34); MEAN CORPUSCULAR HGB CONC 34.3 g/dl (32-36); MEAN PLATELET VOLUME 11.5 fL (7.4-10.4); PLATELET COUNT 138 K/uL (130-400); RED CELL DISTRIBUTION WIDTH CV 13.8 % (11.5-14.5); RED CELL DISTRIBUTION WIDTH SD 47.5 fL (36.4-46.3); WHITE BLOOD COUNT 7.73 K/uL (4.8-10.8)
[2017-11-04 07:13] LABS: CALCIUM 8.7 mg/dl (8.5-10.1); CREATININE 0.81 mg/dl (0.60-1.40); POTASSIUM 3.5 mmol/L (3.5-5.1)
[2017-11-04 07:16] LABS: TOTAL PROTEIN 6.2 gm/dl (6.4-8.2)
[2017-11-04] MEDS: CHOLECALCIFEROL 1000 INTER.UNIT TAB PO SCH (08:35)
[2017-11-04] MEDS: CYANOCOBALAMIN 500 MCG TAB (VIT B-12) PO SCH (08:35)
[2017-11-04] MEDS: CALCIUM 600MG + VIT D 400 IU TAB PO SCH (08:35)
[2017-11-04] MEDS: ASPIRIN 81 MG ECTAB PO SCH (08:35)
[2017-11-04] MEDS: THIAMINE HCL 100 MG TAB PO SCH (08:35)
[2017-11-04] MEDS: ENOXAPARIN 40 MG/0.4 ML SYR SQ SCH (08:35)
--- NOTE | 2017-11-04 10:00 | Family Medicine Progress Note ---
Progress Note Date of Service Nov 04, 2017. Subjective Pt evaluation today including: conversation w/ patient [place] well, denied any abdominal pain. Something flew into his eye so he was trying to resolve that w/eyedrops. Otherwise was very communicative. Is NPO for lap freddy today. Denies any questions or concerns. Constitutional: No fever, No chills ENT: No hearing loss Respiratory: No cough Cardiovascular: No chest pain Abdomen: No pain, No nausea All Other Systems: Reviewed and Negative Medications Current Inpatient Medications Medications (Trade) Dose Ordered Sig/Byron Route Start Time Stop Time Status Last Admin Dose Admin Ioversol (Optiray 320) 100 ml UD PRN IV 10/31/17 22:15 11/04/17 22:14 Enoxaparin Sodium (Lovenox Inj) 40 mg Q24H SQ 11/01/17 09:00 12/01/17 08:59 11/03/17 08:58 40 MG Acetaminophen (Tylenol Tab) 650 mg Q4H PRN PO 11/01/17 01:15 12/01/17 01:14 11/03/17 18:05 650 MG Al Hydrox/Mg Hydrox/Simethicone (Maalox Max Susp) 15 ml Q4H PRN PO 11/01/17 01:15 12/01/17 01:14 Magnesium Hydroxide (Milk Of Magnesia Susp) 30 ml Q6H PRN PO 11/01/17 01:15 12/01/17 01:14 Polyethylene (Miralax Powder Packet) 17 gm DAILY PRN PO 11/01/17 02:00 12/01/17 01:59 Ondansetron HCl (Zofran Inj) 4 mg Q6H PRN IV 11/01/17 01:15 12/01/17 01:14 Aspirin (Ecotrin Tab) 81 mg QAM PO 11/01/17 09:00 12/01/17 08:59 Cholecalciferol (Vitamin D Tab) 1,000 inter.unit DAILY PO 11/01/17 09:00 12/01/17 08:59 Cyanocobalamin (Vitamin B-12 Tab) 500 mcg DAILY PO 11/01/17 09:00 12/01/17 08:59 Donepezil HCl (Aricept Tab) 10 mg HS PO 11/01/17 21:00 1/18/18 20:59 11/03/17 21:22 10 MG Memantine (Namenda Tab) 5 mg BID PO 11/01/17 09:00 12/01/17 08:59 Future Hold Betamethasone Dipropion Augmented (Diprolene 0.05% Cr) 1 appln BID PRN EXT 11/01/17 01:15 12/01/17 01:14 Calcium/Vitamin D (Caltrate Plus Tab) 1 tab DAILY PO 11/01/17 09:00 12/01/17 08:59 Artificial Tears (Lacri-Lube Oph Oint) 1 appln DAILY PRN OPB 11/01/17 02:15 12/01/17 02:14 Miscellaneous Information (Order Awaiting Action) 1 ea QS N/A 11/01/17 08:00 12/01/17 07:59 Thiamine HCl (Vitamin B-1 Tab) 250 mg DAILY PO 11/01/17 09:00 12/01/17 08:59 Pantoprazole Sodium 40 mg/ Syringe 10 ml @ 5 mls/min DAILY@11 IV 11/01/17 11:00 12/01/17 10:59 11/03/17 11:16 5 MLS/MIN Morphine Sulfate (MoRPHine SULFATE INJ) 2 mg Q4H PRN IV 11/01/17 02:30 11/15/17 02:29 11/03/17 15:04 2 MG Lactated Ringer's 1,000 ml @ 75 mls/hr [id number] IV 11/02/17 15:45 12/02/17 15:44 11/04/17 05:38 75 MLS/HR Objective Vital Signs Date Time Temp Pulse Resp B/P (MAP) Pulse Ox O2 Delivery O2 Flow Rate FiO2 11/04/17 07:15 Room Air 11/04/17 07:13 36.5 63 16 122/78 (93) 97 Room Air 11/03/17 23:30 Room Air 11/03/17 23:12 36.6 68 18 110/61 (77) 95 Room Air 11/03/17 21:49 Room Air 11/03/17 20:37 36.7 60 16 125/61 (82) 98 Room Air 11/03/17 15:25 36.5 60 17 161/75 (103) 98 Room Air 11/03/17 15:25 Room Air 11/03/17 14:20 60 18 97 Room Air Physical Exam General Appearance: WD/WN, no apparent distress Eyes: normal inspection, PERRL ENT: hearing grossly normal Neck: supple, no JVD Respiratory/Chest: lungs clear, normal breath sounds, no respiratory distress Cardiovascular: regular rate, rhythm, no murmur Abdomen: normal bowel sounds, non tender, soft, no pulsatile mass Extremities: non-tender, no pedal edema Neurologic/Psychiatric: alert, normal mood/affect, oriented x 3 Skin: no rash Laboratory Results Last 24 Hours Test 11/04/17 05:59 White Blood Count 7.73 K/uL Red Blood Count 3.82 M/uL Hemoglobin 12.5 g/dL Hematocrit 36.4 % Mean Corpuscular Volume 95.3 fL Mean Corpuscular Hemoglobin 32.7 pg Mean Corpuscular Hemoglobin Concent 34.3 g/dl RDW Standard Deviation 47.5 fL RDW Coefficient of Variation 13.8 % Platelet Count 138 K/uL Mean Platelet Volume 11.5 fL Sodium Level 138 mmol/L Potassium Level 3.5 mmol/L Chloride Level 104 mmol/L Carbon Dioxide Level 28 mmol/L Anion Gap 5.0 mmol/L Blood Urea Nitrogen 11 mg/dl Creatinine 0.81 mg/dl Est Creatinine Clear Calc Drug Dose 97.8 ml/min Estimated GFR () 100.1 Estimated GFR (Non- 86.3 BUN/Creatinine Ratio 13.5 Random Glucose 113 mg/dl Calcium Level 8.7 mg/dl Total Bilirubin 0.8 mg/dl Aspartate Amino Transf (AST/SGOT) 33 U/L Alanine Aminotransferase (ALT/SGPT) 47 U/L Alkaline Phosphatase 63 U/L Total Protein 6.2 gm/dl Albumin 3.0 gm/dl Globulin 3.2 gm/dl Albumin/Globulin Ratio 0.9 Lipase 899 U/L Assessment and Plan 77 yo M, pre-op / day 0 for laparoscopic cholecystectomy, initially presented for pancreatitis with lipase significantly improving. Pancreatitis, likely from gallstones - For lap freddy today - Lipase 1999 from 8800, will continue to trend - Remains on IV fluids and NPO - Zofran, morphine available for pain/nausea Dementia - Namenda (Memantine) was held during admission due to concern of being the cause for pancreatitis. Will consider re-instituting as an outpatient. - Donepezil continued. Chronic pulmonary fibrosis - Duonebs pre-operatively Gerd - Protonix Dispo - Eventual DC home (?with home health) VTE - Lovenox (held on day of surgery) will restart tmw Code: - DNR Resident Physician Supervision Note: I was present with PGY3 Dr. Keke Callahan during the history and exam. I discussed the case with the resident and agree with the findings and plan as documented in the note. Any exceptions or clarifications are listed here: none. I saw the patient post-op today from an uncomplicated lap freddy. He was eating jello and tolerating such. Denied any abd pain or dyspnea. Apparently after receiving duoneb last night he had, per , severe tremors and confusion (?). VSS no fever o2 sats wnl gen - nad neck - no JVD heart - RRR lungs - bibasilar rales with occasional wheeze (anteriorly only today) abd - soft, NT, ND, BS+, no HSM, dressings in place ext - no edema lipase 899 LFTS wnl A/P: acute pancreatitis - clinically improved. likely was due to gallstones or sludge. acute/chronic cholecystitis - s/p lap freddy today. remains on IV cipro/flagyl. appreciate gen surgery assistance. pulmonary fibrosis - stable. updated at bedside. potentially home next 48 hours repeat labs AM Tian Guthrie MD Resident Tracking Resident Involvement: Resident Care Provided Care Provided: Adult Hospital Medicine
--- NOTE | 2017-11-04 10:18 | History & Physical Bridge Note ---
H&P Re-Evaluation Bridge Note: I have examined the patient, reviewed the History & Physical and in the interval since the performance of the History & Physical I have noted the following changes of clinical significance: No changes noted
[2017-11-04] MEDS: PANTOprazole INJ 40 MG in SYRINGE 0 ML IV SCH (10:19)
[2017-11-04] MEDS ORDERED: MIDAZOLAM HCL 1 MG/ML 2ML VIAL ONE (10:23)
[2017-11-04] MEDS ORDERED: FENTANYL CITRATE INJ 50 MCG/1 ML 2 ML VIAL ONE ×2 (10:23→10:24)
[2017-11-04] MEDS ORDERED: LIDOCAINE HCL 1% 20 ML VIAL ONE (10:25)
[2017-11-04] MEDS ORDERED: BACITRACIN OINT 15 GM TUBE ONE (10:25)
[2017-11-04] MEDS ORDERED: CEFAZOLIN SOD 2000MG/15 ML IV PUSH IV ONE (10:26)
[2017-11-04] MEDS ORDERED: BUPIVACAINE 0.5 % 5 MG/1 ML MPF 30ML VIAL ONE (10:26)
[2017-11-04] MEDS ORDERED: CEFAZOLIN SOD 2000MG/15 ML IV PUSH IV SCH (10:30)
[2017-11-04] MEDS ORDERED: ROCURONIUM BROMIDE 10 MG/ML 5 ML VIAL IV ONE ×2 (10:34→12:04)
[2017-11-04] MEDS ORDERED: LIDOCAINE HCL 2% 2 ML VIAL (20MG/ML) ONE (10:34)
[2017-11-04] MEDS ORDERED: LARYING-O-JET KIT (LTA) ONE (10:34)
[2017-11-04] MEDS ORDERED: DEXAMETHASONE SOD INJ 4 MG/ML VIAL ONE (10:34)
[2017-11-04] MEDS ORDERED: GLYCOPYRROLATE INJ 0.2 MG/ML VIAL ONE (10:34)
[2017-11-04] MEDS ORDERED: PROPOFOL IV EMULSION 10 MG/ML 20 ML VIAL IV ONE (10:34)
[2017-11-04] MEDS ORDERED: NEOSTIGMINE METHYLSULFATE 5 MG/5 ML SYR ONE (10:34)
[2017-11-04] MEDS ORDERED: ONDANSETRON INJ 2 MG/ML 2 ML VIAL ONE (10:34)
[2017-11-04] MEDS ORDERED: EpHEDrine SULFATE INJ 50 MG/ML AMP ONE (11:15)
[2017-11-04] MEDS ORDERED: LABETALOL HCL IV 5 MG/ML 20ML IV PRN (11:30)
[2017-11-04] MEDS ORDERED: EpHEDrine SULFATE INJ 50 MG/ML AMP IV PRN (11:30)
[2017-11-04] MEDS ORDERED: FENTANYL CITRATE INJ 50 MCG/1 ML 2 ML VIAL IV PRN (11:30)
[2017-11-04] MEDS ORDERED: ONDANSETRON INJ 2 MG/ML 2 ML VIAL IV PRN (11:30)
[2017-11-04] MEDS ORDERED: ATROPINE SULFATE 0.1 MG/ML 5ML SYR IV PRN (11:30)
[2017-11-04] MEDS ORDERED: MEPERIDINE HCL 25 MG/ML CARP IV PRN (11:30)
[2017-11-04] MEDS ORDERED: HYDROmorphone INJ 1 MG/ML SYR IV PRN (11:30)
[2017-11-04] MEDS ORDERED: LABETALOL HCL IV 5 MG/ML 20ML IV ONE (11:32)
--- NOTE | 2017-11-04 12:34 | [facility] Post Operative Brief Note ---
Immediate Operative Summary Operative Date Nov 04, 2017. Pre-Operative Diagnosis Acute cholecystitis and pancreatitis Post-Operative Diagnosis Acute cholecystitis and pancreatitis Procedure(s) Performed Laparoscopic Cholecystectomy Surgeon Dr. Leo Client Resolution Specialist Surgeon(s) None Estimated Blood Loss 10ml Findings acute cholecystitis, cholelithiasis Fluids (cc crystalloids) 750ml Specimens A: Gallbladder and contents Drains none Anesthesia general Complication(s) None Disposition Recovery Room / PACU
--- NOTE | 2017-11-04 13:47 | Anesthesiology Progress Note ---
Anesthesia Post Op Note Date & Time Nov 04, 2017 at 13:47 Vital Signs Pain Intensity: 0 Vital Signs Past 12 Hours Date Time Temp Pulse Resp B/P (MAP) Pulse Ox O2 Delivery O2 Flow Rate FiO2 11/04/17 13:11 138/86 11/04/17 13:10 84 15 99 11/04/17 13:10 36.6 65 20 138/86 100 Nasal Cannula 2 11/04/17 13:10 84 15 11/04/17 13:06 140/84 11/04/17 13:05 63 17 11/04/17 13:05 63 17 100 11/04/17 13:04 66 18 99 11/04/17 13:04 63 18 11/04/17 13:01 132/74 11/04/17 12:59 61 14 11/04/17 12:59 61 14 99 11/04/17 12:56 142/86 11/04/17 12:54 69 18 11/04/17 12:54 69 18 100 11/04/17 12:53 66 16 11/04/17 12:53 63 16 100 11/04/17 12:53 66 16 11/04/17 12:53 63 16 100 11/04/17 12:51 143/77 11/04/17 12:51 143/77 11/04/17 12:48 65 18 11/04/17 12:48 63 18 142/86 100 11/04/17 12:48 63 18 142/86 100 11/04/17 12:48 65 18 11/04/17 12:43 65 13 11/04/17 12:43 65 13 100 11/04/17 12:43 65 13 100 11/04/17 12:43 65 13 11/04/17 12:38 36.5 65 16 142/86 100 Oxymask 10 11/04/17 10:31 36.5 64 16 142/66 (91) 100 Room Air 11/04/17 07:15 Room Air 11/04/17 07:13 36.5 63 16 122/78 (93) 97 Room Air Notes Mental Status: alert / awake / arousable, participated in evaluation Pt Amnestic to Procedure: Yes Nausea / Vomiting: adequately controlled Pain: adequately controlled Airway Patency, RR, SpO2: stable & adequate BP & HR: stable & adequate Hydration State: stable & adequate Anesthetic Complications: no major complications apparent
--- NOTE | 2017-11-04 13:52 | OPERATIVE REPORT ---
DATE OF OPERATION: 11/04/2017 PREOPERATIVE DIAGNOSIS: Acute cholecystitis, cholelithiasis. POSTOPERATIVE DIAGNOSIS: Same. PROCEDURE: As Laparoscopic cholecystectomy. SURGEON: Dr. Shalini Leo. ANESTHESIA: General. ESTIMATED BLOOD LOSS: About 10 mL. FINDINGS: Acute cholecystitis with cholelithiasis. COMPLICATIONS: None. INDICATIONS FOR THE PROCEDURE: This is a 77-year-old gentleman who was admitted to hospital for acute pancreatitis with acute cholecystitis and patient required to do a laparoscopic cholecystectomy, possible open, possible cholangiogram. I did talk to the patient about the benefit and risk, alternate procedure. I indicated the risks may include but not limited such as bleeding, infection, injury to common bile duct, injury to bowel, may need ERCP, myocardial infarction, stroke, DVT, even . The patient and patient's understands. He signed informed consent and I answered all questions. DETAILS OF PROCEDURE: We brought the patient to the OR, put the patient in the supine position. The patient received SCDs on bilateral legs to prevent DVT. Also, patient received 2 grams Ancef IV for prophylactic antibiotic. The patient received general anesthesia without difficulty. The abdomen was prepped and draped in routine sterile fashion. After a timeout, we the injected the local anesthesia by using 1% lidocaine mixed with 0.5% Marcaine just above umbilical. I made a small incision just above umbilical, opened fascia and opened peritoneum under direct vision. I put a Jeff trocar in, connected to CO2 to create pneumoperitoneum flow rate at 6 liter per minute. Pressure not more than 14 mmHg. Once we got a nice pneumoperitoneum, I put a camera in and looked around the abdomen which shows no more findings on the stomach, small bowel, large bowel and liver. However, the gallbladder showing chronic and acute cholecystitis, the gallbladder wall thickening, edema. Then, we put another 3.5 mm trocar on the right upper quadrant. Once all trocars in, we used the long needle and decompressed the gallbladder, based on the patient had significant distended gallbladder. Once we decompressed, we put a grasper in to hold the base of the gallbladder, put in the direction to the diaphragm and put another grasper in to hold the pouch of the gallbladder, put latter to expose the triangle of Calot. The cystic duct was identified and mobilized. I put two 5 mm metal clips on the proximal cystic duct, one on the distal cystic duct then I used scissor transection the cystic duct and we checked no bile leak and the cystic artery was identified and mobilized. I put two 5 mm metal clips on the proximal cystic artery around the distal cystic artery. Then, I used scissor to transection the cystic artery and I used a Bovie to take down the gallbladder from the liver bed. Rechecked, no active bleeding, no bile leak from the liver bed. Then we removed the gallbladder through the catch bag. Then we reinserted Jeff trocar in connected to CO2 to create pneumoperitoneum, again to looking around the abdomen showing no active bleeding, no bile leak from the liver bed. No injury to the bowel. Then we removed all trocar under direct vision. No active bleeding from trocar sites. Then pneumoperitoneum was released. Then I closed the umbilical incision, fascial layer by using #1 Vicryl [id number] x2, closed the subcutaneous layer by using 2-0 Vicryl interrupted, closed skin by using 4-0 Vicryl continuous running, closed another 3.5 mm trocar site skin only by using 4-0 Vicryl. We put the dressing on. The patient tolerated the procedure well. All the instrument, needle and sponge count correct x2 at the end of case. The patient transferred to recovery room in stable condition. After the procedure, I did talk to the patient's about the OR finding and procedure we did. Also, gave her the postop care instructions. The patient and understand and the specimen sent to pathology. I attest to the content of the Intraoperative Record and any orders documented therein. Any exceptions are noted below. KIP
[2017-11-04] MEDS ORDERED: NURSING DECISION MEDICATION ORDER SCH (16:30)
[2017-11-04] MEDS ORDERED: COUGH DROP (SUGAR FREE) LOZ 24 LOZ/1 BOX PO PRN (16:30)
--- NOTE | 2017-11-04 16:42 | PROGRESS NOTE ---
DATE: 11/04/2017 SUBJECTIVE: The patient underwent laparoscopic cholecystectomy today. He was found to have acute on chronic cholecystitis. Gallbladder was removed without event. An operative cholangiogram was not performed. PHYSICAL EXAMINATION: GENERAL: Postoperatively, patient is doing well. VITAL SIGNS: Normal. He is afebrile. IMPRESSION: The patient's liver profile remains normal. His lipase today is 899, down from 2038 yesterday and hopefully this will continue to resolve without further intervention. We will continue to follow his lipase to resolution to make sure that there is no evidence of common duct stones or sludge. Dr. Alejandre will be covering over the weekend.
[2017-11-04] MEDS ORDERED: NURSING VERBAL MED ORDER ONE (16:45)
[2017-11-04] MEDS: DONEPEZIL HCL 10 MG TAB PO SCH (20:43)
[2017-11-05 04:01] VITALS: BP 99/48; PULSE 69; TEMP 36.8; O2SAT 95
[2017-11-05] MEDS: LACTATED RINGER'S 1000ML 1,000 ML IV SCH (04:46)
[2017-11-05 06:26] LABS: BASO % 0.1 %; BASO ABS # 0.01 K/uL (0-0.2); EOS % 0.1 %; EOS ABS # 0.01 K/uL (0-0.5); HEMOGLOBIN 11.6 g/dL (14.0-18.0); IG# 0.01 K/uL (0.00-0.02); LYMPH ABS # 1.14 K/uL (1.2-3.4); MEAN CELL VOLUME 95.5 fL (80-100); MEAN CORPUSCULAR HEMOGLOBIN 32.6 pg (25-34); MEAN CORPUSCULAR HGB CONC 34.1 g/dl (32-36); MEAN PLATELET VOLUME 11.2 fL (7.4-10.4); MONO % 12.3 %; MONO ABS # 0.88 K/uL (0.11-0.59); NEUT % 71.4 %; NEUT ABS # 5.08 K/uL (1.4-6.5); PLATELET COUNT 137 K/uL (130-400); RED CELL DISTRIBUTION WIDTH CV 13.9 % (11.5-14.5); WHITE BLOOD COUNT 7.13 K/uL (4.8-10.8)
[2017-11-05 06:53] LABS: ALBUMIN 2.8 gm/dl (3.4-5.0); CALCIUM 8.6 mg/dl (8.5-10.1); CREATININE 0.9 mg/dl (0.60-1.40)
[2017-11-05 07:41] VITALS: BP 113/66; PULSE 63; TEMP 36.7; O2SAT 95
[2017-11-05 08:00] VITALS: O2SAT 95
[2017-11-05] MEDS: CALCIUM 600MG + VIT D 400 IU TAB PO SCH (08:55)
[2017-11-05] MEDS: THIAMINE HCL 100 MG TAB PO SCH (08:55)
[2017-11-05] MEDS: ASPIRIN 81 MG ECTAB PO SCH (08:55)
[2017-11-05] MEDS: CYANOCOBALAMIN 500 MCG TAB (VIT B-12) PO SCH (08:56)
[2017-11-05] MEDS: CHOLECALCIFEROL 1000 INTER.UNIT TAB PO SCH (08:56)
[2017-11-05] MEDS: ENOXAPARIN 40 MG/0.4 ML SYR SQ SCH (08:57)
[2017-11-05] MEDS: PANTOprazole INJ 40 MG in SYRINGE 0 ML IV SCH (11:28)
--- NOTE | 2017-11-05 11:41 | GASTROENTEROLOGY PROGRESS NOTE ---
DATE: 11/05/2017 SUBJECTIVE: Chart reviewed, patient examined. The patient underwent laparoscopic cholecystectomy yesterday and is feeling well today. He had some liquids this morning, which were tolerated well. The patient and his spouse report no problems overnight or earlier this morning. No fever or chills are reported. The patient is afebrile at 36.7, blood pressure 113/66, 95% on room air, respirations 16, heart rate 63. LABORATORY STUDIES: Today, the patient's lipase continues to resolve and is currently 475 today down from 899 yesterday. This was from an initial presentation of 9865. MEDICATIONS: Include Aricept, pantoprazole, Lovenox, Ecotrin, B12, and vitamin D. PHYSICAL EXAMINATION: GENERAL: The patient is awake, alert and oriented to person and place. HEENT: Oral mucosa moist. HEART: Normal S1, S2. LUNGS: Clear to auscultation. ABDOMEN: Soft, flat, nontender, nondistended with good bowel sounds. EXTREMITIES: Without edema. RECTAL: Deferred. IMPRESSION AND PLAN: The patient is status post cholecystectomy yesterday for acute and chronic cholecystitis on multiple imaging studies. We would follow pancreas enzymes to normal, although current value is close to the upper limit. We would consider repeat lipase, if he remains asymptomatic in approximately 1 week. The patient tentatively scheduled for discharge later today as he tolerates meals. All questions answered for the patient and his . We will sign off at this time. Thank you for allowing us to participate in this patient's care.
[2017-11-05 12:49] VITALS: BP 121/75; PULSE 67; TEMP 36.4; O2SAT 95
[2017-11-05 15:32] VITALS: BP 116/73; PULSE 70; TEMP 36.4; O2SAT 99
--- NOTE | 2017-11-05 15:55 | Discharge Summary ---
Discharge Summary Date of Service Nov 05, 2017. Discharge Summary Admission Date: Nov 01, 2017 at 01:13 Discharge Date: Nov 05, 2017 Discharge Disposition: Home Principal Diagnosis: Pancreatitis and Cholecystitis Problems/Secondary Diagnoses: (1) GERD (gastroesophageal reflux disease) Status: Chronic (2) Hyperlipidemia Nec/Nos Status: Chronic (3) Memory Loss Status: Chronic (4) Pulmonary Fibrosis, Unspecified Status: Chronic Immunizations: Have You Had Influenza Vaccine: No History of Tetanus Vaccine?: No History of Pneumococcal: Yes Pneumococcal Date: Nov 15, 2008 History of Hepatitis B Vaccine: No Procedures: Lab Cholecystectomy on 11/04/2017. MRCP HISTORY: 77 years-old Male Abdominal pain gallbladder sludge and gallbladder distention with acute generalized abdominal pain, nausea and vomiting. Reported acute pancreatitis. COMPARISON: CT abdomen and pelvis 10/31/2017, gallbladder ultrasound 10/31/2017 TECHNIQUE: MRCP with MIP reformats obtained secondary to institutional protocol. No IV contrast was administered. FINDINGS: The exam is moderately motion degraded. Artifact from posterior feliberto and screw fusion hardware involving the lumbar spine. Trace right pleural effusion. Kidneys, spleen and pancreas appear grossly unremarkable. Moderate gallbladder distention measures up to 10.3 x 4.9 cm with mild degree of layering sludge seen in the gallbladder neck. Mild gallbladder wall thickening, 4 mm. No intrahepatic or pancreatic ductal dilation. No evidence of pancreatic divisum. Common bile duct is normal, 4 mm. No filling defects or focal strictures of the common bile duct. IMPRESSION: 1. Gallbladder distention with mild gallbladder wall thickening and layering sludge. Correlate clinically to exclude acalculus cholecystitis. 2. No biliary ductal dilation or common bile duct filling defects identified. GALLBLADDER-ABD LIMITED CLINICAL HISTORY: 77 years-old Male presenting with vomiting, pancreatitis. TECHNIQUE: Real-time grayscale and limited color Doppler ultrasound imaging of the abdomen limited to the right upper quadrant was performed. COMPARISON: CT performed earlier the same day. FINDINGS: Pancreas: Largely obscured due to overlying bowel gas. Liver: Normal echogenicity and echotexture. The liver measures 15 cm in maximal sagittal dimension. No sonographic evidence of hepatic mass. Main portal vein patent with normal directional flow. Biliary: No intrahepatic biliary ductal dilatation. Common bile duct measures up to 5 mm in diameter. Gallbladder: The gallbladder is distended measuring over 10 cm in length. Gallbladder sludge noted. No gallstones, gallbladder wall thickening, pericholecystic fluid or inflammatory change. Unable to assess sonographic Montgomery's sign. Right kidney: Not visualized due to bowel gas. Ascites: None. IMPRESSION: 1. Gallbladder sludge and mild gallbladder distention. Physiologic distention not excluded. No other findings to suggest cholecystitis. No biliary ductal dilatation. If there is continuing clinical concern, nuclear medicine HIDA scan could be obtained. Medication Reconciliation New Medications: Oxycodone/Acetaminophen 5MG/325MG (Percocet 5MG/325MG) Tab 1 TABLET PO Q4H PRN for Pain, #18 TAB Continued Medications: Alpha-Lipoic Acid (Thioctic Ac (Alpha Lipoic Acid) 300 Mg Tab 300 MG PO DAILY Aspirin (Aspirin 81) 81 Mg Tab 81 MG PO QAM Betamethasone Dip (Betamethasone Dipropionat) 45 Appln/15 Gm Cr 1 APPLN TOP BID PRN for for 30 Days, #45 GM 1 Refill Calcium Carbonate-Vitamin D (Calcium + D3 600-200 mg-Unit) 1 Tab Tab 1 TAB PO DAILY Carboxymethylcellulose-Glyceri (Refresh Optive 1-0.9 %) 1 Gel Gel 1 APPLN OPB DAILY PRN for Cholecalciferol (Vitamin D) 1,000 Unit Tab 1000 UNITS PO DAILY Coenzyme Q10 (Ubidecarenone) (Co Q 10) 100 Mg Cap 100 MG PO QAM Cyanocobalamin (Vitamin B12 500MCG) 500 Mcg Tab 500 MCG PO DAILY, TAB Donepezil HCl (Donepezil HCl) 10 Mg Tab 10 MG PO HS Ipratropium [place] (Nasal) (Ipratropium [place]) 0.03 % Spr 2 SPRAYS HEIDI TID PRN for Memantine (Namenda) 5 Mg Tab 5 MG PO BID, TAB Multivitamins/Minerals (Mvi With Minerals) Tab 1 TAB PO DAILY, 0 Refills Polyethylene (Miralax) 17 Gm Pow 17 GM PO DAILY PRN for Constipation Probiotic Product (Probiotic) 1 Cap Cap 1 CAP PO DAILY Ranitidine (Zantac) Unknown Strength Tab Unknown Dose PO DAILY, TAB Thiamine Hcl (Vitamin B1) 250 Mg Tab 250 MG PO QAM Discharge Exam The patient was seen and examined at bedside. Tolerating a clear liquid diet. Off oxygen for >12 hours. Last morphine administration was on 11/03/2017. Patient is resting comfortably in bed. in the room during rounds. Complaining of pain at the incision sites that worsens when he moves. Patient is interested in being discharged. Plan of care was described to the patient and all questions were answered. Review of Systems: Constitutional: No fever, No chills ENT: No hearing loss Respiratory: No cough, No sputum, No wheezing, No shortness of breath Abdomen: No pain, No nausea, No vomiting, No diarrhea, No constipation Genitourinary - Male: No hematuria, No dysuria Endocrine: No fatigue Integumentary: No rash Physical Exam: General Appearance: WD/WN, no apparent distress Eyes: PERRL, EOMI Respiratory/Chest: chest non-tender, lungs clear, normal breath sounds, no respiratory distress, no accessory muscle use Cardiovascular: regular rate, rhythm, no edema, no gallop, no JVD, no murmur , normal peripheral pulses Abdomen / GI: normal bowel sounds, soft, no organomegaly, + pertinent finding (patient has some incisional site tenderness, ) Extremities: normal inspection, no calf tenderness Neurologic/Psychiatric: independent living specialist II-XII nml as tested, no motor/sensory deficits , alert, normal mood/affect, oriented x 3 Skin: no rash Hospital Course 77M presenting with Vomiting and Abdominal Pain. Found to have acute Pancreatitis. Lipase on admission was 9800, Lactate was 2.4 and WBC was 12, 000. MRCP showed gallbladder distention with mild gallbladder wall thickening and layering sludge. Patient underwent a Lab Cholecystectomy on 11/04/[address] Leo. Diet was progressed and patient was discharged in good condition. All medications were continued Post Operatively and Antibiotics were discontinued on discharge. Patient was given 18 tabs of Percocet for pain. We recommend a low fat diet on discharge to minimize abdominal discomfort. Other medical conditions were treated as follows: Dementia - Namenda (Memantine) was held during admission due to concern of being the cause for pancreatitis. We are restarting as outpatient because the pancreatitis was likely found from Gallstones. - Donepezil continued. Chronic pulmonary fibrosis - Duonebs pre-operatively GERD - continued Protonix Resident Physician Supervision Note: I was present with PGY2 Dr. Marquis Polk during the discharge history and exam. I discussed the case with the resident and agree with the findings and plan as documented in the discharge summary. Any exceptions or clarifications are listed here: none. 77yo male with dementia & pulmonary fibrosis who presented with acute pancreatitis. He was treated in the customary fashion with IVF & bowel rest. Work-up including MRCP ultimately revealed that he likely had acute cholecystitis. Thus, it was felt that the pancreatitis was from gallstones. He was seen in consult by general surgery who performed an uncomplicated laparoscopic cholecystectomy. Intra-op findings showed evidence of acute on chronic cholecystitis. Post-op he did well; was able to tolerate a diet, was passing flatus, and was ambulating without difficulty. Lipase was nearly normal on day of discharge (<500). LFTs remained normal his entire stay. Discharge exam: gen - NAD neck - no JVD mouth - MMM heart - irregular (extra beats), s1, s2 lungs - bibasilar fine/dry rales, mild end-exp wheeze b/l abd - soft, NT, ND, BS+, no HSM ext - no edema skin - dressings intact to abdominal wall He will f/u with Dr. Leo of general surgery in early November as well as his PCP , Dr. Casey of [facility]. Repeat lipase at time of follow-up is recommended to ensure complete normalization. Documented By: Tian Guthrie MD Total Time Spent: Greater than 30 minutes (55) This includes examination of the patient, discharge planning, medication reconciliation, and communication with other providers. Discharge Instructions Please refer to the electronic Patient Visit Report (Discharge Instructions) for additional information. Follow-Up Please, follow up with Dr. Casey on TuesdayNovember 15 at 9:50 am. *If you have any questions or need to change/cancel this appointment you can call his office at [phone]. Please, follow up Dr. Leo (surgeon) on TuesdayNovember 23 at 3:00 pm. *This office is located in the [facility]. The address is [address] [place] [address] in [place]. If you have any questions or need to cancel/change this appointment you can call the office at [phone]. Additional Copies To Jh Casey M.D.; Shalini Leo MD Resident Involvement: Resident Care Provided Care Provided: Adult Hospital Medicine
--- NOTE | 2017-11-05 16:00 | Discharge Instructions ---
Discharge Instructions Date of Service Nov 05, 2017. Admission Reason for Admission: Pancreatitis Discharge Discharge Diagnosis / Problem: Pancreatitis and Cholecystitis Discharge Goals Goal(s): Decrease discomfort, Improve function, Increase independence, Improve disease control, Improve nutritional status Activity Recommendations Activity Limitations: per Instructions/Follow-up section . Instructions / Follow-Up Instructions / Follow-Up You have been diagnosed with Pancreatitis likely caused by a Gallstone. We also found that your Gallbladder was inflamed - this is also likely to have been cause by obstruction from a gallstone. You underwent a procedure called a Cholecystectomy to remove your Gallbladder. After removal your Gallbladder was found to be visible inflamed. After leaving the hospital please consume a low far diet for the next 2-3 weeks. A low fat diet will minimize any diarrhea of abdominal pain you may get post operatively. Please continue all your home medications on discharge. Follow up appointments have been made for you with the following providers: Dr. Casey on TuesdayNovember 15 at 9:50 am. *If you have any questions or need to change/cancel this appointment you can call his office at [phone]. Follow up Dr. Leo (surgeon) on TuesdayNovember 23 at 3:00 pm. *This office is located in the [facility]. The address is [address] [place] [address] in [place]. If you have any questions or need to cancel/change this appointment you can call the office at [phone]. Current Hospital Diet Patient's current hospital diet: Low Fat Diet Discharge Diet Recommended Diet: Low Fat Diet Procedures Procedures Performed: Laparoscopic Cholecystectomy Pending Studies Studies pending at discharge: no Medical Emergencies . Who to Call and When: Medical Emergencies: If at any time you feel your situation is an emergency, please call 911 immediately. . Non-Emergent Contact Non-Emergency issues call your: Primary Care Provider, Surgeon Call Non-Emergent contact if: you have a fever, temperature is above 100.5, your pain is not controlled, your pain is worsening, wound has increased drainage, wound has increased redness, wound has increased pain . . "Provider Documentation" section prepared by Marquis Polk. . VTE Core Measure Inpt VTE Proph given/why not?: Enoxaparin (Lovenox)SQ, SCD's Resident Involvement: Resident Care Provided Care Provided: Adult [facility] Medicine
[2017-11-05 18:20] VITALS: BP 116/73; PULSE 70; TEMP 36.4; O2SAT 99
== END 2017-11-05 18:50 | disposition home or self-care (01) | DRG 419 ==
LOC: C.EDB 21:39 → C.MSN 11-01 01:13 → EDBEDREQ 11-01 01:17 → ENRESERV 11-01 01:21
PROVIDERS: ADMIT Internal Medicine; ATTEND Internal Medicine
PROC: 0FT44ZZ Resection of Gallbladder, Percutaneous Endoscopic Approach (ICD-10-PCS; principal; 2017-11-04 11:00)
DX: K85.90 Acute pancreatitis without necrosis or infection, unspecified (principal); K81.9 Cholecystitis, unspecified; J84.10 Pulmonary fibrosis, unspecified; F03.90 Unspecified dementia, unspecified severity, without behavioral disturbance, psychotic disturbance, mood disturbance, and anxiety; Z66 Do not resuscitate; K21.9 Gastro-esophageal reflux disease without esophagitis; E78.5 Hyperlipidemia, unspecified; Z96.659 Presence of unspecified artificial knee joint; Z87.891 Personal history of nicotine dependence; Z79.82 Long term (current) use of aspirin

== ENCOUNTER → 2018-03-07 | Outpatient (CLI) | payer OTHER, BC ==
[~2018-03-07] MED LIST changes: +ASPI-435 PO; -ASPI325T45 PO; +CALC-388 PO; -CALC600T; +CARB1GEL14 OPB; +CHOL100010 PO; +COEN1CAP17 PO; -COEN400C5; -CRS/10 PO; +CYAN500T13 PO; +DPRSCR15 TOP; -FLUT50SP14 NAE; +IPRA0.03 NAE; +MISCCAP80 PO; +MRLP17X PO; +NMN5 PO; +OXYC-57 PO; -POLY335025; -PRED10TA PO; -PRLSR20 PO; +RANI150T85 PO; +THIA250T7 PO
--- NOTE | 2018-03-07 14:58 | DIAGNOSTIC IMAGING REPORT ---
TWO VIEW CHEST CLINICAL HISTORY: Cough. FINDINGS: PA and lateral chest radiographs are compared to study dated 10/31/2017 and correlated with chest CT dated 04/23/2016. The heart is enlarged and there is atherosclerotic calcification of the thoracic aorta. Changes of chronic interstitial lung disease are somewhat a previous. Emphysema is suggested. Bibasilar airspace opacities are likely related to chronic lung disease. Increasing opacities are suggested in the right upper lobe. There is no pleural effusion on pneumothorax. A 2.4 cm nodule suggested at the right lung base. The skeletal structures are osteopenic. Degenerative change and mild hyperkyphosis are noted in the thoracic spine. Fusion hardware is noted in the upper lumbar spine. IMPRESSION: 1. Changes of chronic interstitial lung disease are similar to previous. 2. Question increasing opacities in the right upper lobe. Correlate clinically for evidence of a superimposed infectious/inflammatory pneumonitis. Radiographic follow-up to resolution is recommended. 3. A 2.4 cm nodular density projects over the right lung base. Follow-up with a chest CT is recommended to exclude pulmonary neoplasm. 4. Cardiomegaly and suspect emphysema. Electronically signed by: Andre Hawkins M.D. 03/07/2018 2:56 PM Dictated Date/Time: 03/07/2018 2:51 PM
== END | disposition home or self-care (01) ==
LOC: C.RAD1850 14:42
PROVIDERS: ATTEND Student in an Organized Health Care Education/Training Program
DX: R05 Cough (principal)

== ENCOUNTER → 2018-03-09 | Outpatient (CLI) | payer OTHER, BC ==
--- NOTE | 2018-03-09 14:24 | DIAGNOSTIC IMAGING REPORT ---
ULTRASOUND SOFT TISSUES NECK CLINICAL HISTORY: Neck swelling. COMPARISON STUDY: CT scan of the chest dated 04/23/2016. FINDINGS: Real-time, grayscale, and color flow sonography of the soft tissues of the neck is performed at the indicated sites of interest. The points of interest in the superior neck correspond to the submandibular glands which are normal in appearance and symmetric bilaterally. No mass or fluid collection is seen. No lymphadenopathy is identified. Survey images of the thyroid gland show no abnormality. IMPRESSION: Unremarkable sonographic assessment of the soft tissues of the neck. The site of palpable concern correspond to normal-appearing submandibular glands. Electronically signed by: Andre Hawkins M.D. 03/09/2018 2:23 PM Dictated Date/Time: 03/09/2018 2:21 PM
== END | disposition home or self-care (01) ==
LOC: C.ULTR 13:42
PROVIDERS: ATTEND Family Medicine
DX: R22.1 Localized swelling, mass and lump, neck (principal)

== ENCOUNTER → 2018-03-23 | Outpatient (CLI) | payer OTHER, BC ==
--- NOTE | 2018-03-23 10:53 | DIAGNOSTIC IMAGING REPORT ---
(CHEST) THORAX WITHOUT CT DOSE: 494.22 mGy.cm HISTORY: Abnormal chest series J84.10 TECHNIQUE: Multiaxial CT images of the chest were performed without contrast. A dose lowering technique was utilized adhering to the principles of ALARA. COMPARISON: Chest series 03/07/2018. CT chest 04/23/2016 FINDINGS: Progressive parenchymal fibrosis throughout both hemithoraces. Possibility of superimposed inflammatory process is not excluded. Nodular densities in the right lung base of the patient's chest film is now identified currently. There are no consolidative infiltrates. Unchanged atelectatic change thoracic aorta. IMPRESSION: 1. Progressive pulmonary fibrosis throughout both hemithoraces versus the possibility of a superimposed generalized pneumonitis. 2. No significant nodular pathology. The above report was generated using voice recognition software. It may contain grammatical, syntax or spelling errors. Electronically signed by: Marquis Shultz M.D. 03/23/2018 10:51 AM Dictated Date/Time: 03/23/2018 10:44 AM
== END | disposition home or self-care (01) ==
LOC: C.CTS 10:22
PROVIDERS: ATTEND Internal Medicine Pulmonary Disease
DX: J84.10 Pulmonary fibrosis, unspecified (principal)

== ENCOUNTER 2018-12-12 12:14 | Inpatient (IN) ==
[2018-12-12 13:09] LABS: Basophils # (auto) 0.02 K/uL (0-0.2); Basophils % (auto) 0.3 %; Eosinophils # (auto) 0.27 K/uL (0-0.5); Eosinophils % (auto) 4.4 %; Hematocrit (blood only) 36.4 % (42-52); Hemoglobin 12.1 g/dL (14.0-18.0); Immature Granulocytes # (auto) 0.01 K/uL (0.00-0.02); Immature Granulocytes % (auto) 0.2 %; Lymphocytes # (auto) 0.82 K/uL (1.2-3.4); Lymphocytes % (auto) 13.2 %; Mean Corpuscular Hgb Conc 33.2 g/dL (32-36); Mean Corpuscular Volume 98.9 fL (80-100); Mean Platelet Volume 10.2 fL (7.4-10.4); Monocytes # (auto) 0.62 K/uL (0.11-0.59); Neutrophils # (auto) 4.45 K/uL (1.4-6.5); Neutrophils % (auto) 71.9 %; Platelet Count 135 K/uL (130-400); RDW Coefficient of Variation 14.8 % (11.5-14.5); RDW Standard Deviation 53.6 fL (36.4-46.3); Red Blood Count 3.68 M/uL (4.7-6.1); White Blood Count 6.19 K/uL (4.8-10.8)
[2018-12-12 13:19] LABS: INR 1.1 (0.9-1.1); Prothrombin Time 11.5 Seconds (9.0-12.0)
--- NOTE | 2018-12-12 13:25 | XRay Report ---
XR chest 1V portable HISTORY: Atypical Chest Pain COMPARISON: Chest 12/05/2018. FINDINGS: No pneumothorax. No pleural effusions. The heart remains mildly enlarged. Diffuse interstit ial thickening persists. This is most pronounced at the periphery and lung bases. No new focal lung c onsolidations. IMPRESSION: No change in the cardiomegaly and diffuse interstitial thickening. This favors chronic interstitial l danna disease such as pulmonary fibrosis. Superimposed mild pulmonary edema cannot excluded. Electronically signed by: Esdras Baltazar M.D. 12/12/2018 1:23 PM
[2018-12-12 13:27] LABS: Alanine Aminotransferase 32 U/L (12-78); Albumin Level 3.4 gm/dl (3.4-5.0); Aspartate Aminotransferase 22 U/L (15-37); Blood Urea Nitrogen 39 mg/dl (7-18); Calcium 9.3 mg/dl (8.5-10.1); Carbon Dioxide 31 mmol/L (21-32); Chloride 100 mmol/L (98-107); Est GFR (African American) 58.3; Est GFR (Non-African American) 50.3; Glucose 114 mg/dl (70-99); Magnesium 2.4 mg/dl (1.8-2.4); Potassium 4.4 mmol/L (3.5-5.1); Sodium 136 mmol/L (136-145)
[2018-12-12 13:35] LABS: Albumin Globulin Ratio 0.9 (0.9-2); Alkaline Phosphatase 87 U/L (45-117); Bilirubin,Total 0.7 mg/dl (0.2-1); Globulin 3.7 gm/dl (2.5-4.0); NT Pro B Type Natriuretic Pept 10723 pg/ml (0-1800); Phosphorus 3.2 mg/dl (2.5-4.9); Total Protein 7.1 gm/dl (6.4-8.2); Troponin I < 0.015 ng/ml (0-0.045)
[2018-12-12 13:42] LABS: Influenza A virus by PCR Neg for Influ A (Neg); Influenza B virus by PCR Neg for Influ B (Neg)
--- NOTE | 2018-12-12 13:59 | CT Scan Report ---
CT head/brain wo con CLINICAL HISTORY: Head pain status post trauma COMPARISON STUDY: January 01, 2013 TECHNIQUE: Axial CT of the brain is performed from the vertex to the skull base. IV contrast was not administered for this examination. A dose lowering technique was utilized adhering to the principles of ALARA. CT DOSE: 614.27 mGy.cm FINDINGS: No intra or extra-axial mass lesions are visualized. There is no CT evidence of acute cortical infarc tion. There is no evidence of midline shift. There is no acute hemorrhage. No calvarial fractures ar e visualized. There are patchy white matter hypodensities likely on a small vessel basis. There is a cavum septa pellucida and cavum vergae. Mild ventricular prominence is felt to be secondar y to volume loss. There is no evidence of acute sinusitis. There is mild left frontal scalp edema. IMPRESSION: No acute intracranial findings Electronically signed by: Gareth Mcnamara M.D. 12/12/2018 1:58 PM
[2018-12-12] MEDS ORDERED: FUROSEMIDE 40 MG/4 ML VIAL IV STA (15:03)
[2018-12-12 15:04] LABS: Appearance Urine Clear (Clear); Bilirubin Urine Negative (Negative); Color Urine Dark Yellow; Glucose Urine UA Negative (Negative); Ketones Urine Negative (Negative); Leukocyte Esterase Urine Negative (Negative); Nitrite Urine Negative (Negative); Protein Urine Negative (Negative); Specific Gravity Urine 1.018 (1.000-1.030); Urobilinogen Urine Negative (Negative)
--- NOTE | 2018-12-12 18:37 | Emergency Department Note ---
Entered by Franny Saha acting as a scribe for Jean Devlin MD History of Present Illness General Chief complaint: Shortness of Breath/Dyspnea Stated complaint: shortness of breath Time Seen by Provider: 12/12/18 12:44 Source: patient and family (mother) Limitations: no limitations History of Present Illness Provider complaint: shortness of breath/dyspnea Onset (ago): hour(s) (earlier in the morning) Location: chest Maximum Pain Intensity: 5 Associated symptoms: + cough, + weakness and + other (+congestion); no fever/ chills The patient is a 78 year old male who presents to the Emergency Room with complaints of shortness of breath/dyspnea that began earlier in the morning prior to arrival. Per , the patient has a cough, congestion, and weakness. Per , the patient can only walk a few steps before needing to stop and take a break. Per , the patient takes medication for his cough but states that the patient's cough seems to be getting worse. Per , the patient has not been febrile. Per , the patient's weight has been fluctuating between 177- 179 lbs. Per , the patient is to receive Lasix if he weight hits 178 lbs. Per , the patient fell out bed last night and hit his head. The patient states that he is not on a blood thinner. Home Medications Home Medications Medication Instructions Recorded Confirmed Type carboxymethylcellulose-glycern 1 drp OPHTHALMIC (EYE) DIRECTED 08/17/1812/12 History [Refresh Optive] PRN cholecalciferol (vitamin D3) 5,000 unit PO QAM 08/17/18 12/12/18 History [Vitamin D3] magnesium glycinate 0 mg PO QAM 08/17/18 12/12/18 History memantine 10 mg PO BID 08/17/18 12/12/18 History multivitamin 1 tab PO QAM 08/17/18 12/12/18 History omega 2-myg-byl-fish oil [[place]-3] 2 cap PO DAILY 08/17/18 12/12/18 History benzonatate 200 mg PO TID PRN 10/17/18 12/12/18 History aspirin [Ecotrin Low Strength] 81 mg PO QAM 12/05/18 12/12/18 History donepezil 20 mg PO HS 12/05/18 12/12/18 History furosemide 20 mg PO QAM 12/05/18 12/12/18 History metoprolol succinate 50 mg PO QAM 12/05/18 12/12/18 History tamsulosin 0.4 mg PO DAILY 12/05/18 12/12/18 History Allergies Allergy/AdvReac Type Severity Reaction Status Date / Time cilostazol Allergy Intermediate Headache Verified 12/12/18 13:25 sacubitril [From Entresto] AdvReac Severe Hypotension Unverified 12/12/18 13:25 valsartan [From Entresto] AdvReac Severe Hypotension Unverified 12/12/18 13:25 Past Med/Surg History Medical History Dementia (Chronic) CHF (congestive heart failure) (Chronic) Dyslipidemia (Chronic) Pulmonary fibrosis (Chronic) Family History Other No pertinent family history Social History marital status: Current Living Situation: Spouse Other Information That Helps Us Care for You: No Safety Concerns: Feels Safe At This Time Smoking Status: Former smoker Do You Dip or Chew Tobacco: No Hx Alcohol Use: No Hx Substance Use: No Beliefs That Will Affect Care: None Preferred Language: Burkinan Communication Ability: Impaired Sorter Upholstery Parts Required: No Review of Systems See HPI for pertinent positives & negatives. and A total of 10 systems reviewed and were otherwise negative Physical Exam Vital Signs Vital Signs - 24 hr 12/12/18 12:16 12/12/18 12:45 12/12/18 12:55 Temperature 36.0 C L Temperature Source Axillary Sepsis Recent Fever Within 48 Hours No Sepsis Action Taken by Nursing No Action Required Pulse Rate 50 L 50 L Pulse Rate [Apical] 54 L Pulse Rhythm [Apical] Regular Pulse Strength [Apical] Respiratory Rate 20 18 18 Respiratory Effort / Characteristics Non-Labored Spontaneous Respiratory Depth Normal Normal Respiratory Pattern Regular Blood Pressure 119/89 Blood Pressure [Left Arm] Blood Pressure [Right Arm] 96/59 L Blood Pressure Mean 99 Blood Pressure Mean [Left Arm] Blood Pressure Mean [Right Arm] 71 Blood Pressure Position [Left Arm] Pulse Oximetry 100 95 95 Oxygen Delivery Method Room Air Room Air Room Air Oxygen Flow Rate 12/12/18 14:51 12/12/18 16:00 12/12/18 16:33 Temperature Temperature Source Sepsis Recent Fever Within 48 Hours Sepsis Action Taken by Nursing Pulse Rate Pulse Rate [Apical] 54 L 65 Pulse Rhythm [Apical] Regular Pulse Strength [Apical] Respiratory Rate 20 18 Respiratory Effort / Characteristics Spontaneous Respiratory Depth Normal Normal Respiratory Pattern Regular Blood Pressure Blood Pressure [Left Arm] Blood Pressure [Right Arm] 104/77 127/79 Blood Pressure Mean Blood Pressure Mean [Left Arm] Blood Pressure Mean [Right Arm] 86 95 Blood Pressure Position [Left Arm] Pulse Oximetry 98 98 98 Oxygen Delivery Method Room Air Room Air Room Air Oxygen Flow Rate 12/12/18 18:00 12/12/18 19:34 12/12/18 21:17 Temperature Temperature Source Sepsis Recent Fever Within 48 Hours Sepsis Action Taken by Nursing Pulse Rate Pulse Rate [Apical] 63 84 54 L Pulse Rhythm [Apical] Pulse Strength [Apical] Respiratory Rate 18 28 H 24 Respiratory Effort / Characteristics SOB on Exertion Respiratory Depth Normal Shallow Shallow Respiratory Pattern Tachypnea Tachypnea Blood Pressure Blood Pressure [Left Arm] Blood Pressure [Right Arm] 120/88 118/55 L Blood Pressure Mean Blood Pressure Mean [Left Arm] Blood Pressure Mean [Right Arm] 98 76 Blood Pressure Position [Left Arm] Pulse Oximetry 98 Oxygen Delivery Method Nasal Cannula Nasal Cannula Oxygen Flow Rate 3 3 3 12/12/18 21:50 12/12/18 23:13 Temperature 36.5 C 36.5 C Temperature Source Rectal Oral Sepsis Recent Fever Within 48 Hours Sepsis Action Taken by Nursing Pulse Rate Pulse Rate [Apical] 67 61 Pulse Rhythm [Apical] Regular Pulse Strength [Apical] Normal Respiratory Rate 20 26 H Respiratory Effort / Characteristics Non-Labored Spontaneous Respiratory Depth Normal Respiratory Pattern Regular Blood Pressure Blood Pressure [Left Arm] 104/72 103/61 Blood Pressure [Right Arm] Blood Pressure Mean Blood Pressure Mean [Left Arm] 82 75 Blood Pressure Mean [Right Arm] Blood Pressure Position [Left Arm] Lying Lying Pulse Oximetry 96 98 Oxygen Delivery Method Nasal Cannula Nasal Cannula Oxygen Flow Rate 3 GENERAL: Awake, alert, chronically ill-appearing, Mildly dyspneic but in no distress HENT: Normocephalic, atraumatic. Oropharynx unremarkable. EYES: Normal conjunctiva. Sclera non-icteric. NECK: Supple. No nuchal rigidity. FROM. No JVD. RESPIRATORY: Diminished breath sounds at bases with scattered rhonchi. CARDIAC: Regular rate, normal rhythm. Extremities warm and well perfused. Pulses equal. ABDOMEN: Soft, non-distended. No tenderness to palpation. No rebound or guarding. No masses. RECTAL: Deferred. MUSCULOSKELETAL: Chest examination reveals no tenderness. The back is symmetrical on inspection without obvious abnormality. There is no CVA tenderness to palpation. No joint edema. LOWER EXTREMITIES: Calves are equal size bilaterally and non-tender. 1+ BLE edema. No discoloration. NEURO: Normal sensorium. No sensory or motor deficits noted. Pleasantly confused. SKIN: No rash or jaundice noted. Course 1246: Past medical records reviewed. The patient was evaluated in room A9B, and a complete history and physical examination were performed. 1530: I checked on and updated the patient on his results. 1857: I discussed the patient's case with Dr. Zeke Narvaez [facility] who will evaluate the patient for further hospitalization. Consultations Consultation #1: Dr. Zeke Narvaez [facility] Hospitalist Time: 18:58 Administered Medications Benzonatate (Tessalon Perle) 200 mg PO TID PRN PRN Reason: Cough Stop: 01/11/19 22:11 Last Admin: 12/13/18 00:07 Dose: 200 mg Donepezil HCl (Aricept) 20 mg PO HS AIMEE Stop: 01/11/19 22:59 Last Admin: 12/13/18 00:05 Dose: 20 mg Memantine (Namenda) 10 mg PO BID AIMEE Stop: 01/11/19 22:59 Last Admin: 12/13/18 00:07 Dose: 10 mg Discontinued Medications Furosemide (Lasix) 20 mg IV NOW STA Stop: 12/12/18 15:04 Last Admin: 12/12/18 15:21 Dose: 20 mg Methylprednisolone 40 mg/ (Syringe) 0.64 mls @ 1.5 mls/min IV NOW ONE Stop: 12/12/18 22:46 Last Admin: 12/12/18 23:52 Dose: 1.5 mls/min Medical Decision Making Differential Diagnosis Differential diagnosis: Etiologies such as infections, reactive airway disease, COPD, pneumonia, pleural effusion, pulmonary edema, ARDS, pneumothorax, CHF, cardiac ischemia, cardiac tamponade, dysrhythmia, anemia, pulmonary embolism, musculoskeletal, gastrointestinal process, as well as others were entertained. Medical Records Attestation: I reviewed the patient's medical records. Home Medications Current Medication List: was personally reviewed by me Laboratory Data Attestation: I reviewed the patient's lab results. Result diagrams: 12/12/18 12:55 12/12/18 12:55 Lab Results 12/12/18 12/12/18 12/12/18 Range/Units 12:55 12:55 12:55 WBC 6.19 (4.8-10.8) K/uL RBC 3.68 L (4.7-6.1) M/uL Hgb 12.1 L (14.0-18.0) g/dL Hct 36.4 L (42-52) % MCV 98.9 (80-100) fL MCH 32.9 (25-34) pg MCHC 33.2 (32-36) g/dL RDW Std Deviation 53.6 H (36.4-46.3) fL RDW Coeff of [place] 14.8 H (11.5-14.5) % Plt Count 135 (130-400) K/uL MPV 10.2 (7.4-10.4) fL Immature Gran % (Auto) 0.2 % Neut % (Auto) 71.9 % Lymph % (Auto) 13.2 % Island % (Auto) 10.0 % Eos % (Auto) 4.4 % Baso % (Auto) 0.3 % Immature Gran # (Auto) 0.01 (0.00-0.02) K/uL Neut # (Auto) 4.45 (1.4-6.5) K/uL Lymph # (Auto) 0.82 L (1.2-3.4) K/uL Island # (Auto) 0.62 H (0.11-0.59) K/uL Eos # (Auto) 0.27 (0-0.5) K/uL Baso # (Auto) 0.02 (0-0.2) K/uL PT 11.5 (9.0-12.0) Seconds INR 1.1 (0.9-1.1) Sodium 136 (136-145) mmol/L Potassium 4.4 (3.5-5.1) mmol/L Chloride 100 (98-107) mmol/L Carbon Dioxide 31 (21-32) mmol/L Anion Gap 5.0 (3-11) BUN 39 H (7-18) mg/dl Creatinine 1.35 (0.6-1.4) mg/dl Est Cr Clr Drug Dosing 56.0 ml/min Est GFR ( Amer) 58.3 Est GFR (Non-Af Amer) 50.3 BUN/Creatinine Ratio 29.0 H (10-20) Glucose 114 H (70-99) mg/dl Calcium 9.3 (8.5-10.1) mg/dl Phosphorus 3.2 (2.5-4.9) mg/dl Magnesium 2.4 (1.8-2.4) mg/dl Total Bilirubin 0.7 (0.2-1) mg/dl AST 22 (15-37) U/L ALT 32 (12-78) U/L Alkaline Phosphatase 87 (45-117) U/L Troponin I < 0.015 (0-0.045) ng/ml NT-Pro-B Natriuret Pep 37323 H (0-1800) pg/ml Total Protein 7.1 (6.4-8.2) gm/dl Albumin 3.4 (3.4-5.0) gm/dl Globulin 3.7 (2.5-4.0) gm/dl Albumin/Globulin Ratio 0.9 (0.9-2) Lipase 114 (73-393) U/L Urine Color Urine Appearance (Clear) Urine pH (4.5-7.5) Ur Specific [place] (1.000-1.030) Urine Protein (Negative) Urine Glucose (UA) (Negative) Urine Ketones (Negative) Urine Blood (Negative) Urine Nitrite (Negative) Urine Bilirubin (Negative) Urine Urobilinogen (Negative) Ur Leukocyte Esterase (Negative) Influenza Type A (PCR) (Neg) Influenza Type B (PCR) (Neg) 12/12/18 12/12/18 Range/Units 13:00 14:25 WBC (4.8-10.8) K/uL RBC (4.7-6.1) M/uL Hgb (14.0-18.0) g/dL Hct (42-52) % MCV (80-100) fL MCH (25-34) pg MCHC (32-36) g/dL RDW Std Deviation (36.4-46.3) fL RDW Coeff of [place] (11.5-14.5) % Plt Count (130-400) K/uL MPV (7.4-10.4) fL Immature Gran % (Auto) % Neut % (Auto) % Lymph % (Auto) % Island % (Auto) % Eos % (Auto) % Baso % (Auto) % Immature Gran # (Auto) (0.00-0.02) K/uL Neut # (Auto) (1.4-6.5) K/uL Lymph # (Auto) (1.2-3.4) K/uL Island # (Auto) (0.11-0.59) K/uL Eos # (Auto) (0-0.5) K/uL Baso # (Auto) (0-0.2) K/uL PT (9.0-12.0) Seconds INR (0.9-1.1) Sodium (136-145) mmol/L Potassium (3.5-5.1) mmol/L Chloride (98-107) mmol/L Carbon Dioxide (21-32) mmol/L Anion Gap (3-11) BUN (7-18) mg/dl Creatinine (0.6-1.4) mg/dl Est Cr Clr Drug Dosing ml/min Est GFR ( Amer) Est GFR (Non-Af Amer) BUN/Creatinine Ratio (10-20) Glucose (70-99) mg/dl Calcium (8.5-10.1) mg/dl Phosphorus (2.5-4.9) mg/dl Magnesium (1.8-2.4) mg/dl Total Bilirubin (0.2-1) mg/dl AST (15-37) U/L ALT (12-78) U/L Alkaline Phosphatase (45-117) U/L Troponin I (0-0.045) ng/ml NT-Pro-B Natriuret Pep (0-1800) pg/ml Total Protein (6.4-8.2) gm/dl Albumin (3.4-5.0) gm/dl Globulin (2.5-4.0) gm/dl Albumin/Globulin Ratio (0.9-2) Lipase (73-393) U/L Urine Color Dark Yellow Urine Appearance Clear (Clear) Urine pH 7.0 (4.5-7.5) Ur Specific [place] 1.018 (1.000-1.030) Urine Protein Negative (Negative) Urine Glucose (UA) Negative (Negative) Urine Ketones Negative (Negative) Urine Blood Negative (Negative) Urine Nitrite Negative (Negative) Urine Bilirubin Negative (Negative) Urine Urobilinogen Negative (Negative) Ur Leukocyte Esterase Negative (Negative) Influenza Type A (PCR) Neg for Influ A (Neg) Influenza Type B (PCR) Neg for Influ B (Neg) Imaging Data Radiologist's Impression: Radiology results as stated below per my review and the radiologist's interpretation: XR chest 1V portable HISTORY: Atypical Chest Pain COMPARISON: Chest 12/05/2018. FINDINGS: No pneumothorax. No pleural effusions. The heart remains mildly enlarged. Diffuse interstitial thickening persists. This is most pronounced at the periphery and lung bases. No new focal lung consolidations. IMPRESSION: No change in the cardiomegaly and diffuse interstitial thickening. This favors chronic interstitial lung disease such as pulmonary fibrosis. Superimposed mild pulmonary edema cannot excluded. Electronically signed by: Esdras Baltazar M.D. 12/12/2018 1:[address] head/brain wo con CLINICAL HISTORY: Head pain status post trauma COMPARISON STUDY: January 01, 2013 TECHNIQUE: Axial CT of the brain is performed from the vertex to the skull base. IV contrast was not administered for this examination. A dose lowering technique was utilized adhering to the principles of ALARA. CT DOSE: 614.27 mGy.cm FINDINGS: No intra or extra-axial mass lesions are visualized. There is no CT evidence of acute cortical infarction. There is no evidence of midline shift. There is no acute hemorrhage. No calvarial fractures are visualized. There are patchy white matter hypodensities likely on a small vessel basis. There is a cavum septa pellucida and cavum vergae. Mild ventricular prominence is felt to be secondary to volume loss. There is no evidence of acute sinusitis. There is mild left frontal scalp edema. IMPRESSION: No acute intracranial findings Electronically signed by: Gareth Mcnamara M.D. 12/12/2018 1:58 PM ECG Data Attestation: I personally reviewed and interpreted this ECG as follows: Indication: SOB/dyspnea Rate (beats per minute): 54 Rhythm: sinus bradycardia Findings: + other (left axis deviation), + 1st degree AV block and + PVC ( frequent ); no acute ischemic change Comparison ECG Date: from (12/05/2018) Blood Pressure Blood Pressure Findings: Normal blood pressure MDM Narrative The patient is a pleasant 78-year-old gentleman with a past medical history of CHF on Lasix, pulmonary fibrosis, dementia who presents emergency department with his concerned for worsening cough, congestion, shortness of breath, and generalized weakness over the past couple of days per hpi. On arrival the patient is chronically ill-appearing, pleasantly confused, mildly dyspneic but in no acute distress, afebrile with stable vital signs. EKG is similar to prior and without evidence of acute ischemia. Chest x-ray with likely pulmonary edema. WBC within normal limits. Hemoglobin 12.1 within patient's baseline. Chemistry without acidosis. Troponin negative. BNP 10K similar to prior value. CT head negative for acute findings. Patient was given dose of IV Lasix and reassessed for improvement however still mildly dyspneic and had developed oxygen requirement, placed on nasal cannula by nursing. Thus, given the patient's persistent shortness of breath despite diuresis, reasonable to admit the patient for further management. Case was discussed with Dr. Narvaez, [facility] hospitalist, and [facility] admitting team will evaluate the patient for admission. Impression & Plan CHF (congestive heart failure) Discharge Plan Visit Data *Final* Discharge Date/Time: 12/12/18 21:41 Chief Complaint: Shortness of Breath/Dyspnea Stated Complaint: shortness of breath ED Provider: Jean Devlin Discharge Problem: CHF (congestive heart failure) Patient Disposition: Admitted As Inpatient Discharge Instructions Interventions: ED Discharge Assessment Last Done: 12/12/18 21:41 The scribe's documentation has been prepared under my direction and personally reviewed by me in its entirety. I confirm that the note above accurately reflects all work, treatment, procedures, and medical decision making performed by me.
--- NOTE | 2018-12-12 20:57 | History & Physical Report ---
Date of Service December 12, 2018 Assessment & Plan (1) CHF (congestive heart failure): 78 y/o M Hx advanced dementia, combined CHF, pulmonary fibrosis. The pt presents at the behest of his who noted that he appeared dyspneic. She denies he has had a productive cough or fevers. The pt has been admitted twice in as many months for CHF exacerbations. Due to his advanced dementia, he is not able to converse and cannot contribute to the ROS/HPI. He is able to follow simple commands at best and his symptoms are, therefore, per his , difficult to gauge. He was requiring 02 on arrival to the ER. His CXR was not particularly impressive and was more consistent with chronic lung disease rather than volume overload, although this could not be ruled out. 1) SOB, hypoxia - presently requiring 02. The pt will be placed on IV Lasix and is admitted with a CHF protocol. Differential may include hypoxia related to his lung disease. He received a dose of steroids and is placed on PRN nebs as well. If he does not respond to diuresis, we woould elect to treat this as a lung disease exacerbation. Cont Metoprolol, NT if needed. 2) Pulmonary fibrosis - this is not normally treated - as above, it is in the differential for his currnt hypoxia and he may need home 02 on DC. 3) Advanced dementia - the pt may benefit from placement at present as his states, she has difficulty gauging his symptoms. He does appear well-cared for but may have a better prognosis in a jail environment. I do not beleive his current meds, including Memantine and Donepazil, are having a beneficial effect at this point. He will be provided with a mild sedative overnight as he appears agitated. DNR - SCDs Total time for this admit including review of labs, meds, imaging, records - discussion with pt's and ER attending - 38 min History of Present Illness Chief Complaint: 78 y/o M Hx advanced dementia, combined CHF, pulmonary fibrosis. The pt presents at the behest of his who noted that he appeared dyspneic. She denies he has had a productive cough or fevers. The pt has been admitted twice in as many months for CHF exacerbations. Due to his advanced dementia, he is not able to converse and cannot contribute to the ROS/HPI. He is able to follow simple commands at best and his symptoms are, therefore, per his , difficult to gauge. He was requiring 02 on arrival to the ER. His CXR was not particularly impressive and was more consistent with chronic lung disease rather than volume overload, although this could not be ruled out. 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 Family: Mother in 90s - cause not known Father in 60s "heart problems" Primary Care Provider: Jh Casey Allergies Allergy/AdvReac Type Severity Reaction Status Date / Time cilostazol Allergy Intermediate Headache Verified 12/12/18 13:25 sacubitril [From Entresto] AdvReac Severe Hypotension Unverified 12/12/18 13:25 valsartan [From Entresto] AdvReac Severe Hypotension Unverified 12/12/18 13:25 Home Medications Home Medications Medication Instructions Recorded Confirmed Type carboxymethylcellulose-glycern 1 drp OPHTHALMIC (EYE) DIRECTED 08/17/1812/12 History [Refresh Optive] PRN cholecalciferol (vitamin D3) 5,000 unit PO QAM 08/17/18 12/12/18 History [Vitamin D3] magnesium glycinate 0 mg PO QAM 08/17/18 12/12/18 History memantine 10 mg PO BID 08/17/18 12/12/18 History multivitamin 1 tab PO QAM 08/17/18 12/12/18 History omega 9-ydu-hce-fish oil [[employer]-3] 2 cap PO DAILY 08/17/18 12/12/18 History benzonatate 200 mg PO TID PRN 10/17/18 12/12/18 History aspirin [Ecotrin Low Strength] 81 mg PO QAM 12/05/18 12/12/18 History donepezil 20 mg PO HS 12/05/18 12/12/18 History furosemide 20 mg PO QAM 12/05/18 12/12/18 History metoprolol succinate 50 mg PO QAM 12/05/18 12/12/18 History tamsulosin 0.4 mg PO DAILY 12/05/18 12/12/18 History Past Med/Surg History Medical History Dementia (Chronic) CHF (congestive heart failure) (Chronic) Dyslipidemia (Chronic) Pulmonary fibrosis (Chronic) Social History marital status: Current Living Situation: Spouse Feels Safe at Home: Yes Smoking Status: Former smoker Second Hand Exposure: No Hx Alcohol Use: No Hx Substance Use: No Beliefs That Will Affect Care: Uatsdin Uatsdin Beliefs: Amish Preferred Language: Kazakh Review of Systems Cannot obtain Physical Exam 2 Vital Signs (Past 24 Hours): Last Vital Signs Temp 36.0 C L 12/12/18 12:45 Pulse 84 12/12/18 19:34 Resp 28 H 12/12/18 19:34 BP 120/88 12/12/18 18:00 Pulse Ox 98 12/12/18 18:00 Physical Exam: General: restless, elderly male, cannot converse, can follow simple commands ENT: No erythema or exudates, no thrush Eyes: FRIEDA, EOMI Head and neck: Normocephalic, atraumatic, neck is supple, JVD is appreciated Chest/heart: Nontender, S1,2, RRR, no murmurs, no gallops Lungs: Exam is limited as he makes exahagerated inhalation noises when asked to take a breath Abdomen: Nontender, nondistended, BS+ Neuro: AAO x 3, speech is clear, no unilateral weakness or loss of sensation, coordination intact Musculoskeletal: No joint inflammation, muscle tenderness, FROM Skin: No acute rashes or ulcers Extremities: No clubbing, cyanosis, edema _ (1) CHF (congestive heart failure) Heart failure chronicity: unspecified Heart failure type: unspecified Qualified Code(s): I50.9 - Heart failure, unspecified
[2018-12-12] MEDS ORDERED: ALUMINUM/MAGNESIUM SUSP 30 ML UDC PO PRN (22:12)
[2018-12-12] MEDS ORDERED: POLYETHYLENE (MIRALAX) 17 GM PACK PO PRN (22:12)
[2018-12-12] MEDS ORDERED: ALBUT/IPRATROP 3MG/0.5MG NEB 3 ML VIAL NEB PRN (22:12)
[2018-12-12] MEDS ORDERED: LORazepam 0.25 MG/0.5 ML VIAL IV PRN (22:12)
[2018-12-12] MEDS ORDERED: ONDANSETRON INJ 2 MG/ML 2 ML VIAL IV PRN (22:12)
[2018-12-12] MEDS ORDERED: MAGNESIUM HYDROXIDE SUSP 30 ML UDC PO PRN (22:12)
[2018-12-12] MEDS ORDERED: OLANZAPINE ZYDIS 5 MG ORALLY DIS. TAB PO PRN (22:12)
[2018-12-12] MEDS ORDERED: BENZONATATE 100 MG CAPSULE PO PRN (22:12)
[2018-12-12] MEDS ORDERED: methylPREDNISolone 40 MG in SYRINGE 0 ML IV ONE (22:45)
[2018-12-13] MEDS: DONEPEZIL HCL 10 MG TAB PO SCH ×2 (00:05→21:26)
[2018-12-13] MEDS: MEMANTINE HCL 10 MG TAB PO SCH ×3 (00:07→21:26)
[2018-12-13] MEDS: ACETAMINOPHEN 325 MG TAB PO PRN ×2 (01:08→15:53)
[2018-12-13 06:36] LABS: Basophils # (auto) 0.01 K/uL (0-0.2); Basophils % (auto) 0.2 %; Eosinophils # (auto) 0.04 K/uL (0-0.5); Eosinophils % (auto) 0.6 %; Hematocrit (blood only) 36.9 % (42-52); Hemoglobin 12.3 g/dL (14.0-18.0); Immature Granulocytes # (auto) 0.02 K/uL (0.00-0.02); Immature Granulocytes % (auto) 0.3 %; Lymphocytes # (auto) 0.64 K/uL (1.2-3.4); Lymphocytes % (auto) 10.1 %; Mean Corpuscular Hgb Conc 33.3 g/dL (32-36); Mean Corpuscular Volume 98.7 fL (80-100); Monocytes # (auto) 0.16 K/uL (0.11-0.59); Monocytes % (auto) 2.5 %; Neutrophils # (auto) 5.46 K/uL (1.4-6.5); Neutrophils % (auto) 86.3 %; Platelet Count 133 K/uL (130-400); RDW Coefficient of Variation 14.7 % (11.5-14.5); RDW Standard Deviation 53.4 fL (36.4-46.3); Red Blood Count 3.74 M/uL (4.7-6.1); White Blood Count 6.33 K/uL (4.8-10.8)
[2018-12-13 07:08] LABS: BUN Creatinine Ratio 27.5 (10-20); Calcium 9.3 mg/dl (8.5-10.1); Creatinine Clr Calc Pharmacy 55.7 ml/min; Est GFR (African American) 63.3; Est GFR (Non-African American) 54.7; Magnesium 2.2 mg/dl (1.8-2.4); Potassium 3.8 mmol/L (3.5-5.1)
[2018-12-13] MEDS ORDERED: FUROSEMIDE 40 MG/4 ML VIAL IV SCH (09:00)
[2018-12-13] MEDS ORDERED: FUROSEMIDE 40 MG in SYRINGE 0 ML IV SCH (09:00)
[2018-12-13] MEDS ORDERED: METOPROLOL SUCC 50MG EXT REL TAB PO SCH (09:00)
[2018-12-13] MEDS ORDERED: POTASSIUM CHLORIDE 20 MEQ TABCR PO STA (09:25)
[2018-12-13] MEDS: ASPIRIN 81 MG ECTAB PO SCH (09:54)
[2018-12-13] MEDS: TAMSULOSIN HCL 0.4 MG CAP PO SCH (09:54)
[2018-12-13] MEDS: methylPREDNISolone 40 MG in SYRINGE 0 ML IV SCH ×2 (14:27→21:22)
[2018-12-13] MEDS: PANTOprazole 40 MG TAB PO SCH (14:27)
--- NOTE | 2018-12-13 21:01 | Family Medicine Progress Note ---
Date of Service December 13, 2018 Assessment & Plan (1) CHF (congestive heart failure): 78 y/o M Hx advanced dementia, combined CHF, pulmonary fibrosis. The pt presents at the behest of his who noted that he appeared dyspneic. She denies he has had a productive cough or fevers. The pt has been admitted twice in as many months for CHF exacerbations. Due to his advanced dementia, he is not able to converse and cannot contribute to the ROS/HPI. He is able to follow simple commands at best and his symptoms are, therefore, per his , difficult to gauge. He was requiring 02 on arrival to the ER. His CXR was not particularly impressive and was more consistent with chronic lung disease rather than volume overload, although this could not be ruled out. 1) SOB, hypoxia - presently requiring 02. -more pulm fibrosis vs. chf exacerbation -IV Lasx stopped -Started on steroids and PPI 2) Pulmonary fibrosis - this is not normally treated - as above, it is in the differential for his current hypoxia and he may need home 02 on DC. -will require overnight pulse ox -2 step for d/c 3) Advanced dementia - -will talk to about stopping alzheimers meds due to severity of dementia -possible discharge to SNF per 's request. DNR - SCDs Supervising Physician Co-Signing Physician Notes Patient seen and examined at the bedside with Dr. Mccracken. Agree with history, exam findings, assessment and plan of care as outlined with the following updates/changes: In brief, Mr. Dominguez is a pleasantly demented 78 year old male with hx of combined systolic and diastolic CHF, pulmonary fibrosis and advanced dementia admitted with dyspnea and new O2 requirement. Reviewed H&P by Dr. Sutton. VSS reviewed. Labs and imaging reviewed. He is alert. Oriented to self. Has difficulty with word finding at times. Lungs with coarse crackles in the bases. No wheezing. On 3L O2. No accessory muscle use. 1. Dyspnea. Initial BNP was elevated, but he appears to be euvolemic on exam. It seems that his dyspnea is stemming from his pulmonary fibrosis. Will to find out who he follows with as an outpatient for his fibrosis. Consider pulm consult. CTA of the chest done on 10/17/18 does show chronic interstitial lung disease throughout the lung. For now, continue steroids. Start PPI for GI prophy with the steroids. Continue nebs. May need O2 for home. Get 2-step and noc ox once we are thinking discharge is eminent. 2. CHF. Not acute failure. Seems euvolemic at this time. Will recheck BNP tomorrow since he was diuresed last night. I suspect his BNP lives at an elevated level and is not necessarily a true barometer of his volume status. 3. Advanced dementia. Admitted from homewife is primary neurology technologist. PT/OT. May qualify for memory unit in a prison environment if family is agreeable. Consider stopping memantine and donepezil. Do not think they are of much benefit at this point with his dementia. Should he become agitated overnight, low dose haldol or Zyprexa would be appropriate. Should avoid medications with anticholingeric properties as well as benzos as this will likely worsen his confusion and agitation. Subjective Pleasantly demented gentleman oriented only to self. Family not at bedside. Review of Systems Unobtainable due to mental health condition Physical Exam 2 Vital Signs (Past 24 Hours): Last Vital Signs Temp 36.7 C 12/13/18 18:48 Pulse 58 L 12/13/18 18:48 Resp 19 12/13/18 18:48 BP 108/65 12/13/18 18:48 Pulse Ox 98 12/13/18 18:48 General: Alert, orientedx1. No acute distress, sitting up eating in bed. HEENT: NC/AT, PERRLA, EOMI, oropharynx moist. Chest: Nontender to palpation. CV: RRR, Normal s1, s2. No murmurs appreciated Resp: Breath sounds coarse bilaterally, no increased effort of breathing. Extremities: No edema. Results & Data Laboratory Results Laboratory Results - last 24 hr 12/13/18 12/13/18 12/13/18 05:48 05:48 07:25 WBC 6.33 RBC 3.74 L Hgb 12.3 L Hct 36.9 L MCV 98.7 MCH 32.9 MCHC 33.3 RDW Std Deviation 53.4 H RDW Coeff of Elma 14.7 H Plt Count 133 MPV 11.0 H Immature Gran % (Auto) 0.3 Neut % (Auto) 86.3 Lymph % (Auto) 10.1 [place] % (Auto) 2.5 Eos % (Auto) 0.6 Baso % (Auto) 0.2 Immature Gran # (Auto) 0.02 Neut # (Auto) 5.46 Lymph # (Auto) 0.64 L [place] # (Auto) 0.16 Eos # (Auto) 0.04 Baso # (Auto) 0.01 Sodium 136 Potassium 3.8 Chloride 101 Carbon Dioxide 29 Anion Gap 6.0 BUN 35 H Creatinine 1.26 Est Cr Clr Drug Dosing 55.7 Est GFR ( Amer) 63.3 Est GFR (Non-Af Amer) 54.7 BUN/Creatinine Ratio 27.5 H Glucose 115 H POC Glucose 111 H Calcium 9.3 Magnesium 2.2 12/13/18 10:54 WBC RBC Hgb Hct MCV MCH MCHC RDW Std Deviation RDW Coeff of [place] Plt Count MPV Immature Gran % (Auto) Neut % (Auto) Lymph % (Auto) [place] % (Auto) Eos % (Auto) Baso % (Auto) Immature Gran # (Auto) Neut # (Auto) Lymph # (Auto) [place] # (Auto) Eos # (Auto) Baso # (Auto) Sodium Potassium Chloride Carbon Dioxide Anion Gap BUN Creatinine Est Cr Clr Drug Dosing Est GFR ( Amer) Est GFR (Non-Af Amer) BUN/Creatinine Ratio Glucose POC Glucose 133 H Calcium Magnesium Medications Administered Home Medications carboxymethylcellulose-glycern [Refresh Optive] 1 drp OPHTHALMIC (EYE) DIRECTED PRN 08/17/18 [History Confirmed 12/12/18] cholecalciferol (vitamin D3) [Vitamin D3] 5,000 unit PO QAM 08/17/18 [History Confirmed 12/12/18] magnesium glycinate 0 mg PO QAM 08/17/18 [History Confirmed 12/12/18] memantine 10 mg PO BID 08/17/18 [History Confirmed 12/12/18] multivitamin 1 tab PO QAM 08/17/18 [History Confirmed 12/12/18] omega 8-npm-oey-fish oil [[place]-3] 2 cap PO DAILY 08/17/18 [History Confirmed ] benzonatate 200 mg PO TID PRN 10/17/18 [History Confirmed 12/12/18] aspirin [Ecotrin Low Strength] 81 mg PO QAM 12/05/18 [History Confirmed 12/12/18 ] donepezil 20 mg PO 12/05/18 [History Confirmed 12/12/18] furosemide 20 mg PO QAM 12/05/18 [History Confirmed 12/12/18] metoprolol succinate 50 mg PO QAM 12/05/18 [History Confirmed 12/12/18] tamsulosin 0.4 mg PO DAILY 12/05/18 [History Confirmed 12/12/18] Active Medications Acetaminophen (Tylenol) 650 mg PO Q4H PRN PRN Reason: Pain or Fever Stop: 01/11/19 22:11 Last Admin: 12/13/18 15:53 Dose: 650 mg Al Hydrox/Mg Hydrox/Simethicone (Maalox) 15 ml PO Q4H PRN PRN Reason: Dyspepsia Stop: 01/11/19 22:11 Albuterol (Duoneb) 3 ml NEB QIDR PRN PRN Reason: shortness of breath Stop: 01/11/19 22:11 Aspirin ([facility]rin Ectab) [facility] Stop: 01/12/19 08:59 Last Admin: 12/13/18 09:54 Dose: 81 mg Benzonatate (Tessalon Perle) 200 mg PO TID PRN PRN Reason: Cough Stop: 01/11/19 22:11 Last Admin: 12/13/18 00:07 Dose: 200 mg Donepezil HCl (Aricept) 20 mg PO [facility] Stop: 01/11/19 22:59 Last Admin: 12/13/18 21:26 Dose: 20 mg Methylprednisolone 40 mg/ (Syringe) 0.64 mls @ 1.5 mls/min IV Q8 [facility] Stop: 01/12/19 14:44 Last Admin: 12/13/18 21:22 Dose: 1.5 mls/min Magnesium Hydroxide (Milk Of Magnesia) 30 ml PO Q12H PRN PRN Reason: Constipation Stop: 01/11/19 22:11 Memantine (Namenda) 10 mg PO BID [facility] Stop: 01/11/19 22:59 Last Admin: 12/13/18 21:26 Dose: 10 mg Metoprolol Succinate (Toprol Xl) 25 mg PO QAM [facility] Stop: 01/13/19 08:59 Miscellaneous (Order Awaiting Action) 1 ea N/A QS [facility] Stop: 01/12/19 00:00 Last Admin: 12/13/18 15:54 Dose: Not Given Olanzapine (Zyprexa Zydis Od) 1.25 mg PO HS PRN PRN Reason: Agitation Stop: 01/11/19 22:11 Ondansetron HCl (Zofran) 4 mg IV Q6H PRN PRN Reason: Nausea Stop: 01/11/19 22:11 Pantoprazole Sodium (Protonix) 40 mg PO QAM [facility] Stop: 12/16/18 09:01 Last Admin: 12/13/18 14:27 Dose: 40 mg Polyethylene Glycol (Miralax Powder Packet) 17 gm PO DAILY PRN PRN Reason: Constipation Stop: 01/11/19 22:11 Tamsulosin HCl (Flomax) 0.4 mg PO DAILY [facility] Stop: 01/12/19 08:59 Last Admin: 12/13/18 09:54 Dose: 0.4 mg Resident Activity Tracking Resident Involvement: Resident Care Provided Care Provided: [facility] _ (1) CHF (congestive heart failure) Heart failure chronicity: unspecified Heart failure type: unspecified Qualified Code(s): I50.9 - Heart failure, unspecified
[2018-12-14 06:08] LABS: Basophils # (auto) 0.01 K/uL (0-0.2); Basophils % (auto) 0.1 %; Hematocrit (blood only) 35.8 % (42-52); Hemoglobin 12.1 g/dL (14.0-18.0); Immature Granulocytes # (auto) 0.01 K/uL (0.00-0.02); Immature Granulocytes % (auto) 0.1 %; Lymphocytes # (auto) 0.84 K/uL (1.2-3.4); Lymphocytes % (auto) 10.8 %; Mean Corpuscular Hgb Conc 33.8 g/dL (32-36); Mean Corpuscular Volume 98.6 fL (80-100); Mean Platelet Volume 10.3 fL (7.4-10.4); Monocytes # (auto) 0.39 K/uL (0.11-0.59); Platelet Count 135 K/uL (130-400); RDW Coefficient of Variation 14.6 % (11.5-14.5); RDW Standard Deviation 52.7 fL (36.4-46.3); Red Blood Count 3.63 M/uL (4.7-6.1); White Blood Count 7.75 K/uL (4.8-10.8)
[2018-12-14] MEDS: methylPREDNISolone 40 MG in SYRINGE 0 ML IV SCH ×2 (06:34→13:43)
[2018-12-14 06:45] LABS: Calcium 9.1 mg/dl (8.5-10.1); Creatinine Clr Calc Pharmacy 59.3 ml/min; Est GFR (African American) 67.9; Est GFR (Non-African American) 58.6; Potassium 4.8 mmol/L (3.5-5.1)
[2018-12-14] MEDS: METOPROLOL SUCC 50MG EXT REL TAB PO SCH (09:03)
[2018-12-14] MEDS: MEMANTINE HCL 10 MG TAB PO SCH ×2 (09:04→20:46)
[2018-12-14] MEDS: PANTOprazole 40 MG TAB PO SCH (09:04)
[2018-12-14] MEDS: TAMSULOSIN HCL 0.4 MG CAP PO SCH (09:04)
[2018-12-14] MEDS: ASPIRIN 81 MG ECTAB PO SCH (09:05)
[2018-12-14] MEDS: ACETAMINOPHEN 325 MG TAB PO PRN (13:42)
--- NOTE | 2018-12-14 16:29 | Family Medicine Progress Note ---
Date of Service December 14, 2018 Assessment & Plan (1) CHF (congestive heart failure): 78 y/o M Hx advanced dementia, combined CHF, pulmonary fibrosis. 1) SOB, hypoxia - IMPROVING -on 1L today. Continue to wean. -pulm consult with Dr. Campos that pt follows with. Appreciate recs. -more pulm fibrosis vs. chf exacerbation -IV Lasix stopped -Continue steroids and PPI 2) Pulmonary fibrosis - no home meds - as above, it is in the differential for his current hypoxia and he may need home 02 on DC. -will require overnight pulse ox and 2 step for d/c when ready if not able to wean O2. -pulm consult 3) Advanced dementia - - declining SNF or memory unit placement currently - will consult case management for community resources to prevent janitor caretaker burnout at home. DNR - SCDs Supervising Physician Co-Signing Physician Notes Patient seen and examined at the bedside with Dr. Mccracken. Agree with history, exam findings, assessment and plan of care as outlined with the following updates/changes: In brief, Mr. Dominguez is a pleasantly demented 78 year old male with hx of combined systolic and diastolic CHF, pulmonary fibrosis and advanced dementia admitted with dyspnea and new O2 requirement. present today. He is not able to contribute much to the history. reports that she is primary janitor caretaker. They have a chair lift in the home. Regular help for care of the home and to supervise Otto if she needs to go out. Tells me that they do not qualify for many of the home services, but would like home care after discharge. VSS reviewed. Labs and imaging reviewed. He is alert. Oriented to self. Has difficulty with word finding at times. Lungs with coarse crackles in the bases. No wheezing. On room air. No accessory muscle use. 1. Dyspnea. Initial BNP was elevated, but he appears to be euvolemic on exam. It seems that his dyspnea is stemming from his pulmonary fibrosis. Pulm consult. CTA of the chest done on 10/17/18 does show chronic interstitial lung disease throughout the lung. For now, continue steroids. Start PPI for GI prophy with the steroids. Continue nebs. Able to wean off supplemental O2--now on room air. 2. CHF. Not acute failure. Seems euvolemic at this time. I suspect his BNP lives at an elevated level and is not necessarily a true barometer of his volume status. 3. Advanced dementia. Admitted from homewife is primary janitor caretaker. PT/OT. does not want to place patient in a facility. She is the primary janitor caretaker but does have someone who is coming once a week and a family member who comes to watch Otto so she can run errands and go to her nondenominational group. She is aware that many SNFs offer respite care if she needs to go out of town. Consider stopping memantine and donepezil. Do not think they are of much benefit at this point with his dementia. Should he become agitated overnight, low dose haldol or Zyprexa would be appropriate. Should avoid medications with anticholingeric properties as well as benzos as this will likely worsen his confusion and agitation. Dispo: May be able to discharge tomorrow. Subjective Pleasantly demented gentleman oriented only to self. at bedside. States she is his primary janitor caretaker with help occasionly from grandson and nondenominational with taking care of him. House has lift to go between floors. Has occasional falls. Review of Systems Unobtainable due to cognitive status Physical Exam 2 Vital Signs (Past 24 Hours): Last Vital Signs Temp 36.5 C 12/14/18 15:47 Pulse 60 12/14/18 15:47 Resp 22 12/14/18 15:47 BP 103/68 12/14/18 15:47 Pulse Ox 98 12/14/18 15:47 General: Alert, orientedx1. No acute distress, sitting up eating in bed. HEENT: NC/AT, PERRLA, EOMI, oropharynx moist. Chest: Nontender to palpation. CV: RRR, Normal s1, s2. No murmurs appreciated Resp: Breath sounds coarse bilaterally, no increased effort of breathing. Extremities: No edema. Results & Data Laboratory Results Laboratory Results - last 24 hr 12/14/18 12/14/18 05:50 05:50 WBC 7.75 RBC 3.63 L Hgb 12.1 L Hct 35.8 L MCV 98.6 MCH 33.3 MCHC 33.8 RDW Std Deviation 52.7 H RDW Coeff of [place]ma 14.6 H Plt Count 135 MPV 10.3 Immature Gran % (Auto) 0.1 Neut % (Auto) 84.0 Lymph % (Auto) 10.8 [place] % (Auto) 5.0 Eos % (Auto) 0.0 Baso % (Auto) 0.1 Immature Gran # (Auto) 0.01 Neut # (Auto) 6.50 Lymph # (Auto) 0.84 L [place] # (Auto) 0.39 Eos # (Auto) 0.00 Baso # (Auto) 0.01 Sodium 133 L Potassium 4.8 D Chloride 102 Carbon Dioxide 26 Anion Gap 5.0 BUN 38 H Creatinine 1.19 Est Cr Clr Drug Dosing 59.3 Est GFR ( Amer) 67.9 Est GFR (Non-Af Amer) 58.6 BUN/Creatinine Ratio 32.0 H Glucose 153 H Calcium 9.1 NT-Pro-B Natriuret Pep 17362 H Medications Administered Home Medications carboxymethylcellulose-glycern [Refresh Optive] 1 drp OPHTHALMIC (EYE) DIRECTED PRN 08/17/18 [History Confirmed 12/12/18] cholecalciferol (vitamin D3) [Vitamin D3] 5,000 unit PO QAM 08/17/18 [History Confirmed 12/12/18] magnesium glycinate 0 mg PO QAM 08/17/18 [History Confirmed 12/12/18] memantine 10 mg PO BID 08/17/18 [History Confirmed 12/12/18] multivitamin 1 tab PO QAM 08/17/18 [History Confirmed 12/12/18] omega 7-gzk-rkh-fish oil [[place]-3] 2 cap PO DAILY 08/17/18 [History Confirmed ] benzonatate 200 mg PO TID PRN 10/17/18 [History Confirmed 12/12/18] aspirin [Ecotrin Low Strength] 81 mg PO QAM 12/05/18 [History Confirmed 12/12/18 ] donepezil 20 mg PO HS 12/05/18 [History Confirmed 12/12/18] furosemide 20 mg PO QAM 12/05/18 [History Confirmed 12/12/18] metoprolol succinate 50 mg PO QAM 12/05/18 [History Confirmed 12/12/18] tamsulosin 0.4 mg PO DAILY 12/05/18 [History Confirmed 12/12/18] Active Medications Acetaminophen (Tylenol) 650 mg PO Q4H PRN PRN Reason: Pain or Fever Stop: 01/11/19 22:11 Last Admin: 12/14/18 13:42 Dose: 650 mg Al Hydrox/Mg Hydrox/Simethicone (Maalox) 15 ml PO Q4H PRN PRN Reason: Dyspepsia Stop: 01/11/19 22:11 Albuterol (Duoneb) 3 ml NEB QIDR PRN PRN Reason: shortness of breath Stop: 01/11/19 22:11 Aspirin (Ecotrin Ectab) 81 mg PO QAM [facility] Stop: 01/12/19 08:59 Last Admin: 12/14/18 09:05 Dose: 81 mg Benzonatate (Tessalon Perle) 200 mg PO TID PRN PRN Reason: Cough Stop: 01/11/19 22:11 Last Admin: 12/13/18 00:07 Dose: 200 mg Donepezil HCl (Aricept) 20 mg PO HS [facility] Stop: 01/11/19 22:59 Last Admin: 12/13/18 21:26 Dose: 20 mg Methylprednisolone 40 mg/ (Syringe) 0.64 mls @ 1.5 mls/min IV Q8 [facility] Stop: 01/12/19 14:44 Last Admin: 12/14/18 13:43 Dose: 1.5 mls/min Magnesium Hydroxide (Milk Of Magnesia) 30 ml PO Q12H PRN PRN Reason: Constipation Stop: 01/11/19 22:11 Memantine (Namenda) 10 mg PO BID [facility] Stop: 01/11/19 22:59 Last Admin: 12/14/18 09:04 Dose: 10 mg Metoprolol Succinate (Toprol Xl) 25 mg PO QAM [facility] Stop: 01/13/19 08:59 Last Admin: 12/14/18 09:03 Dose: Not Given Miscellaneous (Order Awaiting Action) 1 ea N/A QS [facility] Stop: 01/12/19 00:00 Last Admin: 12/14/18 15:15 Dose: Not Given Olanzapine (Zyprexa Zydis Od) 1.25 mg PO HS PRN PRN Reason: Agitation Stop: 01/11/19 22:11 Last Admin: 12/14/18 09:04 Dose: 1.25 mg Ondansetron HCl (Zofran) 4 mg IV Q6H PRN PRN Reason: Nausea Stop: 01/11/19 22:11 Pantoprazole Sodium (Protonix) 40 mg PO QAM [facility] Stop: 12/16/18 09:01 Last Admin: 12/14/18 09:04 Dose: 40 mg Polyethylene Glycol (Miralax Powder Packet) 17 gm PO DAILY PRN PRN Reason: Constipation Stop: 01/11/19 22:11 Tamsulosin HCl (Flomax) 0.4 mg PO DAILY [facility] Stop: 01/12/19 08:59 Last Admin: 12/14/18 09:04 Dose: 0.4 mg Resident Activity Tracking Resident Involvement: Resident Care Provided Care Provided: Adult [facility] _ (1) CHF (congestive heart failure) Heart failure chronicity: unspecified Heart failure type: unspecified Qualified Code(s): I50.9 - Heart failure, unspecified
--- NOTE | 2018-12-14 19:05 | Consultation Report ---
DATE OF CONSULTATION: 12/14/2018 REPORT OF CONSULTATION: The patient was seen in room 211. He is a 78-year-old male who presented to the Emergency Room on 12/12/2018 with increasing shortness of breath and weakness. His symptoms worsened in the morning prior to arrival. The patient has a history of having pulmonary fibrosis for 7 or 8 years. In 2016, his symptoms worsened. He was given some prednisone for a couple of months with probably some improvement. He has had at least 1 other relatively brief trial of prednisone with short-term benefit, but not long-term. In early 09/2018, he developed an increased cough and shortness of breath. He ultimately went to the Emergency Room and was admitted from 10/17/2018 until 10/19/2018 with congestive heart failure. He was found to have bilateral pleural effusions, which were small and he had an ejection fraction between 30% and 35%. Cardiology saw the patient and has followed up with him. He did better for a time. He has been coughing fairly frequently. His cough has been difficult to treat over time. He was prescribed Tessalon Perles. On 12/05/2018, the patient came to the Emergency Room with an accidental overdose. His came and found some pill bottles that were open. Typically, the patient did not have access to it because of having dementia. She was fairly certain he had taken some Tessalon and probably other medications. He suffered no side effects from this accidental overdose; however. The patient has very significant dementia that is getting worse. His gives him extremely good care. She wants to maintain him at home. He is not, however, a reliable historian. PAST SURGICAL HISTORY: 1. Cholecystectomy 2017. 2. Laminectomy. PAST MEDICAL HISTORY: 1. Pulmonary fibrosis. 2. Dementia. 3. BPH. 4. Hyperlipidemia. 5. Cardiac arrhythmia -- PVCs. 6. Spinal stenosis. 7. Right 6th rib fracture. 8. Pulmonary hypertension. 9. Old OH noted on EKG, but not by history. ALLERGIES: CILOSTAZOL AND ENTRESTO. THE ENTRESTO CAUSED HYPOTENSION. FAMILY HISTORY: Positive for cardiovascular disease. There is no family history of lung disease. SOCIAL HISTORY: Tobacco none since his 30s. Alcohol use none. OCCUPATIONAL HISTORY: The patient worked in [employer]. REVIEW OF SYSTEMS: Unobtainable as the patient is not a reliable historian. HOME MEDICATIONS: 1. Baby aspirin. 2. Benzonatate. 3. Refresh Optive. 4. Vitamin D3. 5. Donepezil 20 mg at bedtime. 6. Furosemide 20 mg daily. 7. Memantine 10 mg b.i.d. 8. Metoprolol 50 mg daily. 9. [place]-3. 10. Tamsulosin 0.4 mg daily. PHYSICAL EXAMINATION: GENERAL: The patient is a pleasant 78-year-old male who was cooperative and alert. He was not oriented. The patient has rambling speech. HEENT: Eye exam showed arcus senilis. Pupils were reactive. Nares were clear. Mouth exam was unremarkable except for dentures. NECK: Palpation of the neck reveals no lymph nodes. VITAL SIGNS: Weight is 80.1 kg with a BMI of 20.9. He has lost quite a bit of weight over the last couple years. The cardiac rate is 50 per minute. There were frequent PVCs and at times bigeminy. Blood pressure 103/68. LUNGS: Auscultation of the lung rosas revealed mild rales posteriorly bilaterally. They are dry. Respiratory rate 22. Oxygen saturation on room air is 98%. Temperature is 36.5. He has had no fevers. ABDOMEN: Soft. Bowel sounds were present. There was no tenderness to palpation or masses. EXTREMITIES: Revealed no cyanosis, clubbing, or edema. He does have a knee scar from prior surgery as well as what was listed. LABORATORY DATA: White count is 7.75. Hemoglobin 12.1. Platelets 135,000. Electrolytes show sodium 133, potassium 4.8, chloride 102, bicarbonate 26. BUN is 38 with a creatinine of 1.19. Flu test was negative. Chest x-ray shows cardiomegaly with diffuse interstitial disease. Cannot exclude coexistent CHF. CT of the head showed no acute change. The patient did have a CT angio of the chest done back on 10/17/2018 when he was hospitalized previously. There was no evidence of pulmonary embolic disease. There were [id number] pleural effusions. Chronic interstitial changes were noted. He had focal nodular consolidations at both lung bases. A followup CAT scan needs to be done. There was mediastinal and hilar lymphadenopathy as well. IMPRESSION: 1. Pulmonary fibrosis -- chronic. 2. Congestive heart failure. 3. Mediastinal and hilar adenopathy. 4. Nodular consolidations at both lung bases seen on prior CT. 5. Dementia. COMMENTS AND RECOMMENDATIONS: The patient appears almost at his baseline. I would discontinue methylprednisolone and change to prednisone. He would likely have a fairly rapid taper on the prednisone as an outpatient. I would start to ambulate the patient for strengthening purposes. I do follow the patient in my office and will be seeing him at his next scheduled appointment. Thank you for asking me to assist in his care. KIP
[2018-12-14] MEDS: DONEPEZIL HCL 10 MG TAB PO SCH (20:45)
[2018-12-15 05:50] LABS: Hematocrit (blood only) 36.3 % (42-52); Hemoglobin 12.2 g/dL (14.0-18.0); Immature Granulocytes # (auto) 0.02 K/uL (0.00-0.02); Immature Granulocytes % (auto) 0.2 %; Lymphocytes # (auto) 0.98 K/uL (1.2-3.4); Lymphocytes % (auto) 11.6 %; Mean Corpuscular Hgb Conc 33.6 g/dL (32-36); Mean Corpuscular Volume 97.8 fL (80-100); Mean Platelet Volume 10.9 fL (7.4-10.4); Monocytes # (auto) 0.62 K/uL (0.11-0.59); Monocytes % (auto) 7.3 %; Neutrophils # (auto) 6.84 K/uL (1.4-6.5); Neutrophils % (auto) 80.9 %; Platelet Count 145 K/uL (130-400); RDW Coefficient of Variation 14.8 % (11.5-14.5); RDW Standard Deviation 52.8 fL (36.4-46.3); Red Blood Count 3.71 M/uL (4.7-6.1); White Blood Count 8.46 K/uL (4.8-10.8)
[2018-12-15 06:16] LABS: BUN Creatinine Ratio 31.5 (10-20); Calcium 9.2 mg/dl (8.5-10.1); Creatinine Clr Calc Pharmacy 54.4 ml/min; Est GFR (African American) 62.2; Est GFR (Non-African American) 53.6; Potassium 4.8 mmol/L (3.5-5.1)
[2018-12-15] MEDS: MEMANTINE HCL 10 MG TAB PO SCH (08:45)
[2018-12-15] MEDS: METOPROLOL SUCC 50MG EXT REL TAB PO SCH (08:45)
[2018-12-15] MEDS: TAMSULOSIN HCL 0.4 MG CAP PO SCH (08:47)
[2018-12-15] MEDS: ASPIRIN 81 MG ECTAB PO SCH (08:47)
[2018-12-15] MEDS: PANTOprazole 40 MG TAB PO SCH (08:50)
[2018-12-15] MEDS ORDERED: predniSONE 20 MG TAB PO SCH (09:00)
--- NOTE | 2018-12-15 13:03 | Progress Note ---
DATE: 12/15/2018 PULMONARY PROGRESS NOTE TIME: 12:45 p.m. SUBJECTIVE: The patient is having no complaints. He is not a good historian, but his was present. He does deny any shortness of breath, cough or chest pain. OBJECTIVE: GENERAL: The patient appears comfortable at rest. VITAL SIGNS: Temperature is 36.5. Blood pressure 106/65. Respiratory rate was 20. Saturation is 98% on room air. HEART: Heart rate is 53 per minute. There are frequent PVCs with some episodes of 2 or 3 PVCs consecutively. LUNGS: Lung rosas revealed rales in the lower lung rosas bilaterally posteriorly. EXTREMITIES: Showed no cyanosis, clubbing or edema. LABORATORY DATA: CBC is essentially unchanged. Electrolytes are showing sodium 134, potassium 4.8, chloride 102, bicarbonate 26. BUN was 40 with a creatinine of 1.28. These are just slightly increased from yesterday, but they are relatively stable compared with the . ProBNP yesterday was still significantly elevated at 13,005. IMPRESSION: 1. Pulmonary fibrosis - likely idiopathic. 2. Congestive heart failure. 3. Nodular consolidation, both lung bases. 4. Mediastinal and hilar adenopathy. COMMENTS AND RECOMMENDATIONS: I have no objections to discharge soon when desired. Symptomatically, he is better. The patient does have an appointment already to see me in the office in 2-3 weeks. Ultimately, I will arrange for a followup CAT scan of the chest. He can be discharged on a short-term prednisone course such as 40 mg for 2 days, 30 mg for 2 days, 20 mg for 2 days, and 10 mg for 2 days.
--- NOTE | 2018-12-15 17:43 | Family Medicine Progress Note ---
Date of Service December 15, 2018 Assessment & Plan (1) CHF (congestive heart failure): 78 y/o M Hx advanced dementia, combined CHF, pulmonary fibrosis. 1) SOB, hypoxia - IMPROVED -on room air -pulm consult with Dr. Campos that pt follows with. Appreciate recs. -more pulm fibrosis vs. chf exacerbation -IV Lasix stopped -Started on steroids and PPI 2) Pulmonary fibrosis - this is not normally treated - as above, it is in the differential for his current hypoxia and he may need home 02 on DC. -will require overnight pulse ox and 2 step for d/c when ready -pulm consult 3) Advanced dementia - discharged home with 24 hour care. DNR - SCDs Supervising Physician Co-Signing Physician Notes Attending attestation Transposed documentation from discharge summary from same day. Pt seen and examined in concert with Dr. Mccracken. In agreement with the documented findings as noted in the resident documentation with any exceptions or additions as noted here. Resting comfortably in bed today oriented to self with some tangential speech. Answering basic questions with refocusing. Reports improved respiratory status and minimal nonproductive cough. Per spouse, patient is at mental status baseline. Was able to tolerate ambulation with PT without lightheadedness or fatigue. On examination, S1/S2 nl though bradycardic in the 60s on examination. CTAB. No apparent B/L LE edema. Baseline dementia normal status per spouse. Has 24 hour care at home which includes spouse and community support. PT recommendation of 24 hour care reviewed. Would consider discontinuing donepezil and memantine through primary care after discharge. Idiopathic pulmonary fibrosis pulmonology consultation tolerating PO prednisone well on room air, To discharge on prednisone PO with GI prophylaxis with PPI. Bradycardia stable and tolerating dose metoprolol. Will continue at decreased dose until cardiology follow up in 1 week. Congestive heart failure euvolemic at this time, dyspnea resolved. Else per resident documentation as noted above. Subjective Much improved. Discharged home. Review of Systems Unobtainable due to cognitive status Physical Exam 2 Vital Signs (Past 24 Hours): Last Vital Signs Temp 36.6 C 12/15/18 15:09 Pulse 42 L 12/15/18 16:53 Resp 18 12/15/18 16:53 BP 105/80 12/15/18 15:09 Pulse Ox 98 12/15/18 16:53 General: Alert, orientedx1. No acute distress, sitting up eating in bed. HEENT: NC, bruising on left buddhist, PERRLA, EOMI, oropharynx moist. Chest: Nontender to palpation. CV: RRR, Normal s1, s2. No murmurs appreciated Resp: Breath sounds coarse bilaterally, no increased effort of breathing. Extremities: No edema. Results & Data Laboratory Results Laboratory Results - last 24 hr 12/15/18 12/15/18 05:31 05:31 WBC 8.46 RBC 3.71 L Hgb 12.2 L Hct 36.3 L MCV 97.8 MCH 32.9 MCHC 33.6 RDW Std Deviation 52.8 H RDW Coeff of Elma 14.8 H Plt Count 145 MPV 10.9 H Immature Gran % (Auto) 0.2 Neut % (Auto) 80.9 Lymph % (Auto) 11.6 Bland % (Auto) 7.3 Eos % (Auto) 0.0 Baso % (Auto) 0.0 Immature Gran # (Auto) 0.02 Neut # (Auto) 6.84 H Lymph # (Auto) 0.98 L Bland # (Auto) 0.62 H Eos # (Auto) 0.00 Baso # (Auto) 0.00 Sodium 134 L Potassium 4.8 Chloride 102 Carbon Dioxide 26 Anion Gap 6.0 BUN 40 H Creatinine 1.28 Est Cr Clr Drug Dosing 54.4 Est GFR ( Amer) 62.2 Est GFR (Non-Af Amer) 53.6 BUN/Creatinine Ratio 31.5 H Glucose 109 H Calcium 9.2 Medications Administered Home Medications carboxymethylcellulose-glycern [Refresh Optive] 1 drp OPHTHALMIC (EYE) DIRECTED PRN 08/17/18 [History Confirmed 12/12/18] cholecalciferol (vitamin D3) [Vitamin D3] 5,000 unit PO QAM 08/17/18 [History Confirmed 12/12/18] magnesium glycinate 0 mg PO QAM 08/17/18 [History Confirmed 12/12/18] memantine 10 mg PO BID 08/17/18 [History Confirmed 12/12/18] multivitamin 1 tab PO QAM 08/17/18 [History Confirmed 12/12/18] omega 1-ewt-eye-fish oil [[place]-3] 2 cap PO DAILY 08/17/18 [History Confirmed ] benzonatate 200 mg PO TID PRN 10/17/18 [History Confirmed 12/12/18] aspirin [Ecotrin Low Strength] 81 mg PO QAM 12/05/18 [History Confirmed 12/12/18 ] donepezil 20 mg PO HS 12/05/18 [History Confirmed 12/12/18] furosemide 20 mg PO QAM 12/05/18 [History Confirmed 12/12/18] tamsulosin 0.4 mg PO DAILY 12/05/18 [History Confirmed 12/12/18] metoprolol succinate 25 mg PO DAILY #7 tab 12/15/18 [Rx] prednisone 20 mg PO .see instructions #7 tab 12/15/18 [Rx] _ (1) CHF (congestive heart failure) Heart failure chronicity: unspecified Heart failure type: unspecified Qualified Code(s): I50.9 - Heart failure, unspecified
--- NOTE | 2018-12-16 03:20 | Discharge Summary ---
Date of Service December 16, 2018 Admission HPI Per Admitting Provider 78 y/o M Hx advanced dementia, combined CHF, pulmonary fibrosis. The pt presents at the behest of his who noted that he appeared dyspneic. She denies he has had a productive cough or fevers. The pt has been admitted twice in as many months for CHF exacerbations. Due to his advanced dementia, he is not able to converse and cannot contribute to the ROS/HPI. He is able to follow simple commands at best and his symptoms are, therefore, per his , difficult to gauge. He was requiring 02 on arrival to the ER. His CXR was not particularly impressive and was more consistent with chronic lung disease rather than volume overload, although this could not be ruled out. Admission Exam Per Admitting Provider General: restless, elderly male, cannot converse, can follow simple commands ENT: No erythema or exudates, no thrush Eyes: FRIEDA, EOMI Head and neck: Normocephalic, atraumatic, neck is supple, JVD is appreciated Chest/heart: Nontender, S1,2, RRR, no murmurs, no gallops Lungs: Exam is limited as he makes exahagerated inhalation noises when asked to take a breath Abdomen: Nontender, nondistended, BS+ Neuro: AAO x 3, speech is clear, no unilateral weakness or loss of sensation, coordination intact Musculoskeletal: No joint inflammation, muscle tenderness, FROM Skin: No acute rashes or ulcers Extremities: No clubbing, cyanosis, edema Principal Diagnosis CHF exacerbation Discharge Exam General: Alert, orientedx1. No acute distress, sitting up eating in bed. HEENT: NC bruising on left shinto, PERRLA, EOMI, oropharynx moist. Chest: Nontender to palpation. CV: RRR, Normal s1, s2. No murmurs appreciated Resp: Breath sounds coarse bilaterally, no increased effort of breathing. Extremities: No edema. Discharge Data Allergies Allergy/AdvReac Type Severity Reaction Status Date / Time cilostazol Allergy Intermediate Headache Verified 12/12/18 13:25 sacubitril [From Entresto] AdvReac Severe Hypotension Unverified 12/12/18 13:25 valsartan [From Entresto] AdvReac Severe Hypotension Unverified 12/12/18 13:25 Consultations 12/12/18 18:30 ED Decision to Admit Stat 12/12/18 22:12 Consult Case Management - Discharge Planning Routine 12/14/18 14:57 Consult Pulmonology Routine Ordered Studies 12/12/18 12:53 CT head/brain wo con Stat Hospital Course (1) CHF (congestive heart failure): 78 y/o M Hx advanced dementia, combined CHF, pulmonary fibrosis. 1) SOB, hypoxia - IMPROVED -Continue to wean to room air -pulm consult with Dr. Campos that pt follows with. Appreciate recs. -more pulm fibrosis vs. chf exacerbation -IV Lasix stopped -Started on steroids and PPI 2) Pulmonary fibrosis - this is not normally treated - as above, it is in the differential for his current hypoxia and he may need home 02 on DC. -will require overnight pulse ox and 2 step for d/c when ready -pulm consult 3) Advanced dementia - -pt was discharged home with 24 hour care. -consider stopping memantne and donepizil due to severity of dementia. DNR - SCDs Total Time Total Time Spent Total Time Spent (In Minutes): 120 Total Time Includes: Examination of the Patient, Discharge Planning and Medication Reconciliation Discharge Plan Discharge Items Patient Disposition: Home - Home Health Services Reason For Visit: CHF EXACERBATION Discharge Diagnosis: Pulmonary fibrosis, hypoxia Discharge Goals: Decrease discomfort, Improve function and Therapeutic intervention Activity: Resume your previous activity Activity Comment: TOLERATED Non-emergency contact: Primary Care Provider and Candy Puller Call non-emergency contact if: you have any medication questions Follow-up/Referrals: Jh Casey [Primary Care Provider] - 12/19/18 2:10 pm (Please, follow up at Dr. Casey's office with Cathie RENTERIA on TuesdayDecember 19 at 2:10 pm. *If you need to change this appointment, call the office at [phone].) Fawn Nice PA-C [Family Provider] - 12/22/18 9:00 am (Please, follow up at [facility] Office with Any Nice PA-C, on TuesdayDecember 22 at 9:00 am. *This office is located in [address] of [facility] [employer] [facility] - big building next to this hospital. If you need to change this appointment, call the office at [phone].) Diet: Regular and Low Sodium (2gm) Addtl Provider Instructions: You were hospitalized for CHF exacerbation and shortness of breath associated with your pulmonary fibrosis diagnosis. You were treated with steroids and nebulizers which provided some relief. You were also seen by physical and occupational therapy. You are also being discharged with 24 hour home care and prescriptions for steroids and a change to your metoprolol medication for your heart. Please take the prednisone tablets (steroid) as follows: -Take 2 tablets each day for the next 2 days. Then 1 tablet each day for the next 2 days. And finally half of a tablet for the next two days. Your metoprolol dose was decreased from 50mg to 25mg. Please continue to take that dose until you followup with your primary care physician. It is imperative that you follow up in the next week as you are being discharged with a week's worth of medication. Please do NOT take this medication if your blood pressure falls below 100/60 or your heart rate drops below 60. Please continue to take your other home medications and discuss with your doctor any changes or concerns. Please followup with your PCP as soon as possible, preferably in the next few days. Please go to the nearest emergency room with any shortness of breath, dizziness , chest pain or sudden falls. Prescriptions: New prednisone 20 mg tablet 20 mg PO .see instructions Qty: 7 RF: 0 metoprolol succinate 25 mg tablet extended release 24 hr 25 mg PO DAILY Qty: 7 RF: 0 Continue multivitamin Tablet 1 tab PO QAM RF: 0 memantine 10 mg Tablet 10 mg PO BID RF: 0 magnesium glycinate 100 mg Tablet PO QAM RF: 0 cholecalciferol (vitamin D3) [Vitamin D3] 5,000 unit Tablet 5,000 unit PO QAM RF: 0 omega 1-kqc-mrr-fish oil [[place]-3] 350 mg-235 mg- 90 mg-597 mg Capsule, Delayed Release(Dr/Ec) 2 cap PO DAILY RF: 0 carboxymethylcellulose-glycern [Refresh Optive] 1-0.9 % Drops,Gel 1 drp OPHTHALMIC (EYE) DIRECTED PRN (Reason: Dry Eye(S)) RF: 0 benzonatate 200 mg capsule 200 mg PO TID PRN (Reason: Cough) RF: 0 donepezil 10 mg tablet 20 mg PO HS RF: 0 tamsulosin 0.4 mg capsule 0.4 mg PO DAILY RF: 0 furosemide 20 mg tablet 20 mg PO QAM RF: 0 aspirin [Ecotrin Low Strength] 81 mg tablet,delayed release (DR/EC) 81 mg PO QAM RF: 0 Discontinued metoprolol succinate 50 mg tablet extended release 24 hr 50 mg PO QAM RF: 0 Stand-Alone Forms: [facility] Discharge Orders: Discharge Order (Routine); Ordered 12/15/18 Ordered By: Caitlin Mccracken Admission Data Admit Date/Time: 12/13/18 12:13 Attending Provider: Inocente Berg Admit Provider: Naresh Sutton Primary Care Provider: Jh Casey Other Providers: Zeke Narvaez ; Esteban Campos Service: Telemetry Other Interventions: Discharge Summary Assessment (RN) Last Done: 12/15/18 19:02 DC Date/Time DO NOT enter until pt leaves facility: 12/15/18 20:53 Supervising Physician Co-Signing Physician Notes Attending attestation Pt seen and examined in concert with Dr. Mccracken. In agreement with the documented findings as noted in the resident documentation with any exceptions or additions as noted here. Resting comfortably in bed today oriented to self with some tangential speech. Answering basic questions with refocusing. Reports improved respiratory status and minimal nonproductive cough. Per spouse, patient is at mental status baseline. Was able to tolerate ambulation with PT without lightheadedness or fatigue. On examination, S1/S2 nl though bradycardic in the 60s on examination. CTAB. No apparent B/L LE edema. Baseline dementia normal status per spouse. Has 24 hour care at home which includes spouse and community support. PT recommendation of 24 hour care reviewed. Would consider discontinuing donepezil and memantine through primary care after discharge. Idiopathic pulmonary fibrosis pulmonology consultation tolerating PO prednisone well on room air, discharge on prednisone PO with GI prophylaxis with PPI. Bradycardia stable and tolerating dose metoprolol. Will continue at decreased dose until cardiology follow up in 1 week. Congestive heart failure euvolemic at this time, dyspnea resolved. Else per resident documentation as noted above.
--- NOTE | 2018-12-19 10:12 | Coding Query ---
CONGESTIVE HEART FAILURE To Promote full compliance with coding requirements relating to patient care, physician participation is requested in all cases of cleaner greaser uncertainty. Please assist us with the following questions. A diagnosis of Congestive Heart Failure is documented in the patient's medical record. To accurately code this diagnosis and to compare patient severity, we ask that you specify the type of heart failure by placing an X within the parenthesis (x). SYSTOLIC HEART FAILURE ( ) Acute ( ) Chronic ( ) Acute on Chronic ( ) Rheumatic ( ) Unknown DIASTOLIC HEART FAILURE ( ) Acute ( ) Chronic ( ) Acute on Chronic ( ) Rheumatic ( ) Unknown COMBINED SYSTOLIC AND DIASTOLIC HEART FAILURE ( ) Acute ( ) Chronic X) Acute on Chronic ( ) Rheumatic ( ) Unknown Was the CHF Present On Admission? Please check the appropriate box: (X Present on Admission ( ) Not Present On Admission ( ) Clinically undetermined Thank you Hudson SHIN
== END 2018-12-15 20:53 | disposition home health service (06) | DRG 196 ==
LOC: ED 12:14 → 2E 12:14 → SUATTDRO 20:48 → 2E 21:41 → SUATTDRO 12-13 12:13